=== PATIENT | male | born 1965 ===

== ENCOUNTER 2017-05-23 08:11 | Day surgery (SDC) | payer BC ==
[2017-05-22 11:22] VITALS: BMI 34.7
[2017-05-23] MEDS ORDERED: Lactated Ringer's 1,000 ML IV ONE (11:50)
[2017-05-23] MEDS ORDERED: Propofol 10 mg/ml Inj (20 ML) ONE ×2 (11:50→12:09)
[2017-05-23] MEDS ORDERED: Lidocaine Hydrochloride 5 ML INJ ONE (11:51)
[2017-05-23 12:45] VITALS: TEMP 98.4
[2017-05-23 13:29] VITALS: O2SAT 100
[2017-05-23 14:55] VITALS: BP 126/80; PULSE 51; RESP 22
== END 2017-05-23 14:05 | disposition home or self-care (01) ==
LOC: C.ENDO 08:11
PROVIDERS: ATTEND Internal Medicine Gastroenterology
DX: Z12.11 Encounter for screening for malignant neoplasm of colon (principal); K63.5 Polyp of colon; I10 Essential (primary) hypertension; F11.11 Opioid abuse, in remission; Z92.29 Personal history of other drug therapy
CPT/HCPCS: 45380; 88305; J2704; J7120

== ENCOUNTER 2017-07-24 07:39 | Emergency (ER) | payer BC ==
[2017-07-24 07:39] VITALS: BMI 34.7
[2017-07-24 07:45] VITALS: TEMP 97.7
[2017-07-24] MEDS ORDERED: Sodium Chloride 0.9% 1,000 ML IV ONE (08:04)
[2017-07-24] MEDS ORDERED: Sodium Chloride 0.9% 1,000 ML ONE (08:15)
[2017-07-24 08:16] LABS: BASO % 0.4 % (0.0-2.0); EOS # 0.1 K/uL (0.0-0.7); HEMOGLOBIN 13.3 g/dL (12.0-18.0); LYMPH # 1.9 K/uL (1.0-4.3); LYMPH % 20.6 % (20.0-40.0); MEAN CORPUSCULAR HEMOGLOBIN 30.1 pg (27.0-31.0); MEAN CORPUSCULAR HGB CONC 33.6 g/dL (33.0-37.0); MEAN PLATELET VOLUME 8.1 fL (7.2-11.7); MONO # 0.4 K/uL (0.0-0.8); MONO % 4.6 % (0.0-10.0); NEUT # 6.6 K/uL (1.8-7.0); NEUT % 73.4 % (50.0-75.0); RBC 4.44 Mil/uL (4.40-5.90); RED CELL DISTRIBUTION WIDTH 14.4 % (11.5-14.5)
--- NOTE | 2017-07-24 08:19 | C.PDOC ---
History Of Present Illness 52yo male with history of chronic pain, loop recorder in heart due to irregular hear rate, presents to ED with complaints of right sidied abdominal pain since earlier today. He denies any associated fever, chills, vomiting or diarrhea. Patient also complains of back pain but states that the pain is chronic. He denies any chest pain, weakness, shortness of breath. Patient offers no other medical complaints. PMD: Emile Green Time Seen by Provider: 07/24/17 07:43 Chief Complaint (Nursing): Abdominal Pain History Per: Patient History/Exam Limitations: no limitations Onset/Duration Of Symptoms: Hrs Current Symptoms Are (Timing): Still Present Severity: Mild Location Of Pain/Discomfort: RUQ, RLQ Quality Of Discomfort: "Pain" Associated Symptoms: denies: Fever, Chills, Nausea, Vomiting, Diarrhea, Chest Pain Additional History Per: Patient Past Medical History Reviewed: Historical Data, Nursing Documentation, Vital Signs Vital Signs: Last Vital Signs Temp 97.7 F 07/24/17 07:41 Pulse 38 L 07/24/17 09:51 Resp 17 07/24/17 09:51 BP 110/90 07/24/17 09:51 Pulse Ox 95 07/24/17 09:51 - Medical History PMH: Arthritis, Depression, Hepatitis (C), HTN, Hypercholesterolemia Denies: Fractures, Chronic Kidney Disease Surgical History: Appendectomy, Endoscopy - [facility] Procedures LEFT HEART CARDIAC CATH (05/18/14) LT HEART ANGIOCARDIOGRAM (05/18/14) REVISION OR RELOCATION OF CARDIAC DEVICE POCKET (05/25/14) Family History: States: Unknown Family Hx - Social History Hx Tobacco Use: Yes Hx Alcohol Use: No 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 Constitutional: Negative for: Fever, Chills Cardiovascular: Negative for: Chest Pain Respiratory: Negative for: Shortness of Breath Gastrointestinal: Positive for: Abdominal Pain. Negative for: Nausea, Vomiting , Diarrhea Musculoskeletal: Positive for: Back Pain Neurological: Negative for: Weakness Physical Exam - Physical Exam Appears: Non-toxic, No Acute Distress Skin: Normal Color, Warm, Dry Head: Atraumatic, Normacephalic Eye(s): bilateral: Normal Inspection Oral Mucosa: Moist Neck: Normal ROM, Supple Chest: Symmetrical Cardiovascular: Rhythm Regular Respiratory: Normal Breath Sounds Gastrointestinal/Abdominal: Bowel Sounds, Soft, No Tenderness, No Mass, No Distention, No Guarding, No Rebound Extremity: Normal ROM, No Pedal Edema Neurological/Psych: Oriented x3 ED Course And Treatment - Laboratory Results Result Diagrams: 07/24/17 08:13 07/24/17 08:13 Lab Interpretation: Normal O2 Sat by Pulse Oximetry: 96 (RA) Pulse Ox Interpretation: Normal - CT Scan/US CT Abdomen/Pelvis w/o contrast Other Rad Studies (CT/US): Read By Radiologist, Radiology Report Reviewed CT/US Interpretation: FINDINGS: LOWER THORAX: Right middle lobe and lingular atelectasis/scarring. Heart size normal. LIVER: Few punctate calcified granulomas. No gross lesion or ductal dilatation. GALLBLADDER AND BILE DUCTS: Unremarkable. PANCREAS: Unremarkable. No gross lesion or ductal dilatation. SPLEEN: Unremarkable. ADRENALS: Unremarkable. No mass. KIDNEYS AND URETERS: Unremarkable. No hydronephrosis. No solid mass. VASCULATURE: Unremarkable. No aortic aneurysm. BOWEL: Unremarkable. No obstruction. No gross mural thickening. APPENDIX: Unremarkable. Normal appendix. PERITONEUM: Unremarkable. No free fluid. No free air. LYMPH NODES: Unremarkable. No enlarged lymph nodes. BLADDER: Unremarkable. REPRODUCTIVE: Unremarkable. BONES: No acute fracture. Spinal degenerative changes. OTHER FINDINGS: None. IMPRESSION: No obstructive uropathy or evidence of recently passed genitourinary calculus. No acute abdominal pelvic pathology Progress Note: Treated with IVF NSS, toradol and reglan. On re-evaluation abdomen soft non-tender Reassessment Condition: Improved Medical Decision Making Medical Decision Making: Plan: -- Labs -- CT Abdomen/Pelvis -- Urinalysis -- TOradol 15mg IV -- IV Fluids -- Reglan 10mg IV Progress: 0934 On re-evaluation, patient reports feeling much better. Labs and CT reviewed and both normal. Patient instructed to take medications as prescribed and to follow up with PMD in 2-3 days. Stable for discharge home. 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 - Scribe Statement The provider has reviewed the documentation as recorded by the Scribe (Gia Barnes) Provider Attestation: All medical record entries made by the Scribe were at my direction and personally dictated by me. I have reviewed the chart and agree that the record accurately reflects my personal performance of the history, physical exam, medical decision making, and the department course for this patient. I have also personally directed, reviewed, and agree with the discharge instructions and disposition.
[2017-07-24 08:27] LABS: MEAN CELL VOLUME 89.4 fL (80.0-94.0)
[2017-07-24 08:31] LABS: ALB/GLOB RATIO 1.5 (1.0-2.1); ALBUMIN 4.5 g/dL (3.5-5.0); ALT/SGPT 22 U/L (21-72); AST/SGOT 33 U/L (17-59); BLOOD UREA NITROGEN 11 mg/dL (9-20); CALCIUM 9.4 mg/dl (8.6-10.4); GFR AFRICAN-AMERICAN > 60; GFR NON-AFRICAN AMERICAN > 60; LIPASE 25 U/L (23-300)
[2017-07-24 09:07] LABS: URINE BILIRUBIN NEGATIVE (NEGATIVE); URINE BLOOD NEGATIVE (NEGATIVE); URINE CLARITY Clear (Clear); URINE COLOR YELLOW (YELLOW); URINE GLUCOSE (UA) NEGATIVE (Normal); URINE PROTEIN NEGATIVE (NEGATIVE)
[2017-07-24 09:08] LABS: URINE LEUKOCYTE ESTERASE NEGATIVE Leu/uL (Negative); URINE UROBILINOGEN 0.2 mg/dL (0.2-1.0)
--- NOTE | 2017-07-24 09:12 | CT ---
PROCEDURE: CT Abdomen and Pelvis without intravenous contrast HISTORY: Pain COMPARISON: CT scan of the abdomen and pelvis dated 03/22/2011. TECHNIQUE: Contiguous images were obtained from the domes of the diaphragms to the upper thighs without the administration of intravenous contrast. Oral contrast was not administered. Radiation dose: Total exam DLP = 929.5 mGy-cm. This CT exam was performed using one or more of the following dose reduction techniques: Automated exposure control, adjustment of the mA and/or kV according to patient size, and/or use of iterative reconstruction technique. FINDINGS: LOWER THORAX: Right middle lobe and lingular atelectasis/scarring. Heart size normal. LIVER: Few punctate calcified granulomas. No gross lesion or ductal dilatation. GALLBLADDER AND BILE DUCTS: Unremarkable. PANCREAS: Unremarkable. No gross lesion or ductal dilatation. SPLEEN: Unremarkable. ADRENALS: Unremarkable. No mass. KIDNEYS AND URETERS: Unremarkable. No hydronephrosis. No solid mass. VASCULATURE: Unremarkable. No aortic aneurysm. BOWEL: Unremarkable. No obstruction. No gross mural thickening. APPENDIX: Unremarkable. Normal appendix. PERITONEUM: Unremarkable. No free fluid. No free air. LYMPH NODES: Unremarkable. No enlarged lymph nodes. BLADDER: Unremarkable. REPRODUCTIVE: Unremarkable. BONES: No acute fracture. Spinal degenerative changes. OTHER FINDINGS: None. IMPRESSION: No obstructive uropathy or evidence of recently passed genitourinary calculus. No acute abdominal pelvic pathology
[2017-07-24 09:52] VITALS: BP 110/90; PULSE 38; RESP 17
[2017-07-24 14:41] VITALS: O2SAT 96
== END 2017-07-24 09:56 | disposition home or self-care (01) ==
LOC: C.ER 07:39
DX: R10.11 Right upper quadrant pain (principal); T14.8XXA Other injury of unspecified body region, initial encounter; X58.XXXA Exposure to other specified factors, initial encounter
CPT/HCPCS: 74176; 80053; 81001; 83690; 85025; 96361; 96374; 96375; 99285; J1885; J2765; J7030

== ENCOUNTER 2017-09-18 06:02 | Day surgery (SDC) | payer BC ==
[2017-09-18] MEDS ORDERED: Bupivacaine 0.25% 20 ML INJ IJ ONE (07:18)
[2017-09-18] MEDS ORDERED: Lidocaine/Epinephrine 1% 1:100000 10 ML IJ ONE (07:18)
[2017-09-18] MEDS ORDERED: ceFAZolin IV 2 gm in Dextrose 2 GM/50 ML BAG IVPB ONE (07:18)
[2017-09-18] MEDS ORDERED: Propofol 10 mg/ml Inj (20 ML) ONE (07:34)
[2017-09-18] MEDS ORDERED: Midazolam 2 MG/2 ML VIAL ONE (07:34)
[2017-09-18] MEDS ORDERED: Rocuronium 10 mg/ml (5 ml) ONE (07:35)
[2017-09-18] MEDS ORDERED: Phenylephrine 10 mg/ml Inj ONE (07:37)
[2017-09-18] MEDS ORDERED: KETAMINE HCL 50 MG/ML SYRINGE ONE (08:07)
[2017-09-18] MEDS ORDERED: Neostigmine Methylsulfate 3mg/3ml Syringe IV ONE (09:26)
--- NOTE | 2017-09-18 09:54 | PCM.SURG1 ---
Surgeon's Initial Post Op Note - Surgeon's Notes Surgeon: Puja Clayton MD Industrial Registered Nurse: ALYSA Huerta Type of Anesthesia: General Endo Pre-Operative Diagnosis: Chronic Cholecystitis and Cholelithiasis. Morbid Obesity. Hepatitis C Operative Findings: Chronic Cholecystitis and Cholelithiasis. Post Infectious adhesions. Morbid Obesity. Hepatitis C Post-Operative Diagnosis: Chronic Cholecystitis and Cholelithiasis. Post Infectious Adhesions. Morbid Obesity. Hepatitis C Operation Performed: Robotic Cholecystectomy. Robotic Enterolysis and Lysis of adhesions Specimen/Specimens Removed: Gall Bladder Estimated Blood Loss: EBL {In ML}: 10 Blood Products Given: N/A Drains Used: No Drains Post-Op Condition: Good Date of Surgery/Procedure: 09/18/17 Time of Surgery/Procedure: 09:55
[2017-09-18] MEDS: HYDROmorphone 0.5 mg/0.5 ml ISec IVP PRN ×6 (10:00→10:56)
[2017-09-18] MEDS ORDERED: Lactated Ringer's 1,000 ML IV ONE (10:30)
[2017-09-18 12:11] VITALS: O2SAT 95
[2017-09-18] MEDS ORDERED: Oxycodone/Acetaminophen 5/325 mg Tab PO PRN (12:11)
[2017-09-18 16:26] VITALS: BP 113/71; PULSE 73; RESP 18; TEMP 97.8
--- NOTE | 2017-09-18 21:32 | OP ---
Copied To: Wei Clayton MD Attending MD: Wei Clayton MD PROCEDURE DATE: 09/18/2017 PREOPERATIVE DIAGNOSES: 1. Chronic cholecystitis and cholelithiasis. 2. Morbid obesity. 3. Hepatitis C positive. POSTOPERATIVE DIAGNOSES: 1. Chronic cholecystitis and cholelithiasis. 2. Extensive postinfectious right upper quadrant adhesions. 3. Morbid obesity. 4. Hepatitis C. PROCEDURES: 1. Robotic cholecystectomy. 2. Robotic extensive enterolysis. SURGEON: Wei Clayton MD BUSINESS OBJECTS ARCHITECT: ERIS Huerta TYPE OF ANESTHESIA: General endotracheal tube anesthesia. ESTIMATED BLOOD LOSS: Around 20 mL. DRAINS: None. PATHOLOGY: The gallbladder with the gallstone was sent for the pathology. COMPLICATIONS: None. INTRAOPERATIVE FINDINGS: The patient had changes of chronic cholecystitis and cholelithiasis, and the patient also had hepatomegaly with extensive right upper quadrant adhesion with duodenum firmly adhesed to the gallbladder, and extensive enterolysis was done in order to enter the Calot's triangle. DESCRIPTION OF PROCEDURE: On intraoperative steps, this is a 52-year-old male who was diagnosed with chronic cholecystitis and cholelithiasis, and the patient was consented for the robotic cholecystectomy, possible open, brought to the OR, placed upon the operating table. After induction of the anesthesia, the abdomen was prepped and draped in the usual sterile fashion. A supraumbilical transverse incision was made after incising the skin, subcutaneous tissue, and the fascia. The robotic camera port was placed. Pneumo was created. Three 8-mm ports were placed in upper abdomen. Robot was brought in. Camera arm as well as arm 1 and arm 2 was docked. The patient was found to have omental colonic adhesion to the gallbladder. First, lysis of adhesion was done, and enterolysis was done. The duodenum was firmly adhesed, and the complete enterolysis was done in order to enter the Calot's triangle. The gallbladder was resected cranially and Calot's triangle dissection was done. Cystic duct and cystic artery were identified, and a top-down approach was done. Critical view of safety was also identified, and intraoperative Firefly was used to identify the ductal anatomy, and the cystic duct and CBD junction was identified, and the cystic duct was clipped at three places nearby the common bile duct junction, and cystic duct and cystic artery were divided and gallbladder was dissected free from the gallbladder fossa. The cystic artery was also clipped at three places before division and there was proper hemostasis in each and every part of the procedure. There was some bleeding from the gallbladder fossa due to hepatomegaly and possible cirrhosis, and proper hemostasis was achieved. Suction irrigation of the gallbladder fossa as well as perihepatic area was done, and all the instrument was taken out. Robot was undocked. All the ports were taken out under vision. The gallbladder was sent off the table for pathology. There was proper hemostasis in each and every part of the procedure. The umbilical incision was closed in two layers. The fascia with 0 Vicryl interrupted suture, skin with 4-0 Monocryl, and dry sterile dressing was applied. The patient tolerated the procedure well. Count of the instrument and gauze was correct. The patient was extubated in the OR and sent to the postanesthesia care unit in stable condition. Wei Clayton MD
== END 2017-09-18 16:25 | disposition home or self-care (01) ==
LOC: C.SDS 06:02
PROVIDERS: ATTEND Surgery Surgical Critical Care
DX: K80.10 Calculus of gallbladder with chronic cholecystitis without obstruction (principal); E66.01 Morbid (severe) obesity due to excess calories; B19.20 Unspecified viral hepatitis C without hepatic coma; Z68.29 Body mass index [BMI] 29.0-29.9, adult
CPT/HCPCS: 47562; 88304; J0690; J1170; J2001; J2250; J2370; J2405; J2704; J2710; J3010; J7120

== ENCOUNTER 2017-09-19 07:34 | Inpatient (IN) | payer BC ==
[2017-09-19 07:44] VITALS: BMI 31.0
--- NOTE | 2017-09-19 08:08 | C.PDOC ---
History Of Present Illness 52-year-old male, presents to the emergency department with complaints of shortness of breath and couph with blood tinged sputum, developed yesterday. Patient states he had a cholecystectomy done yesterday by Dr Clayton, and states symptoms have been worsening since discharge last night. Patient notes an associated cough with blood tinged white sputum. He denies any nausea/ vomiting, leg pain/swelling, chest pain, back pain, dizziness, or any other associated symptoms. No other complaints at this time. Chief Complaint (Nursing): GI Problem History Per: Patient History/Exam Limitations: no limitations Onset/Duration Of Symptoms: Days Severity: Moderate Past Medical History Reviewed: Historical Data, Nursing Documentation, Vital Signs Vital Signs: Last Vital Signs Temp 98.1 F 09/19/17 16:00 Pulse 69 09/19/17 17:10 Resp 14 09/19/17 17:10 BP 136/86 09/19/17 17:04 Pulse Ox 95 09/19/17 17:10 - Medical History PMH: Arthritis, Cardia Arrhythmia, Depression, Gall Bladder Disease (GB removed) , Hepatitis (C), HTN, Hypercholesterolemia Denies: Fractures, Chronic Kidney Disease Surgical History: Appendectomy, Cholecystectomy, Endoscopy - [facility] Procedures LEFT HEART CARDIAC CATH (05/18/14) LT HEART ANGIOCARDIOGRAM (05/18/14) REVISION OR RELOCATION OF CARDIAC DEVICE POCKET (05/25/14) Family History: States: No Known Family Hx - Social History Hx Tobacco Use: Yes Hx Alcohol Use: No 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) - Immunization History Hx Tetanus Toxoid Vaccination: No Hx Influenza Vaccination: No Hx Pneumococcal Vaccination: No Review Of Systems Constitutional: Negative for: Fever, Chills Cardiovascular: Negative for: Chest Pain, Palpitations Respiratory: Positive for: Cough, Shortness of Breath, Sputum Gastrointestinal: Negative for: Nausea, Vomiting Musculoskeletal: Negative for: Back Pain Neurological: Negative for: Weakness, Numbness, Headache, Dizziness Physical Exam - Physical Exam Appears: Non-toxic, No Acute Distress, Other (uncomfortable, SOB) Skin: Normal Color, Warm, Dry, No Rash Head: Atraumatic, Normacephalic Eye(s): bilateral: Normal Inspection Nose: Normal Oral Mucosa: Moist Lips: Normal Appearing Neck: Normal ROM Chest: Symmetrical Cardiovascular: Rhythm Regular, No Murmur Respiratory: No Normal Breath Sounds, No Accessory Muscle Use, Rhonchi (B/L, L>R ) Gastrointestinal/Abdominal: Soft, No Tenderness Extremity: Normal ROM, Pedal Edema, No Deformity, No Swelling Neurological/Psych: Oriented x3, Normal Speech ED Course And Treatment - Laboratory Results Result Diagrams: 09/19/17 08:29 09/19/17 08:29 O2 Sat by Pulse Oximetry: 91 Pulse Ox Interpretation: Abnormal (RA) - Other Rad CXR X-Ray: Viewed By Me, Read By Radiologist Interpretation: Accession No. : [id number]. Patient Name / ID : JAVON Fontanez / [id number]. Exam Date : 09/19/2017 08:03:45 ( Approved ). Study Comment : Sex / Age : M / 52Y. Creator : Marva Smith MD. Dictator : Marva Smith MD. It Teacher : Tele Grout Sewer Line Repairer : Marva Smith MD. Approver2 : Report Date : 09/19/2017 08:32:53. My Comment : . Date of service: 09/19/2017. PROCEDURE: CHEST RADIOGRAPH, 1 VIEW. HISTORY: SOB, cough. COMPARISON: 09/12/2017. FINDINGS: LUNGS: The lungs are well inflated. There is interval development of consolidation in the left upper and lower lobes. PLEURA: No pneumothorax or pleural fluid seen. CARDIOVASCULAR: Normal. OSSEOUS STRUCTURES: No significant abnormalities. VISUALIZED UPPER ABDOMEN: Normal. OTHER FINDINGS: None. IMPRESSION: Multifocal left upper and lower lobe pneumonia. Follow-up after medical management is recommended to ensure complete resolution. - CT Scan/US CT chest Other Rad Studies (CT/US): Read By Radiologist, Radiology Report Reviewed CT/US Interpretation: Accession No. : [id number]. Patient Name / ID : JAVON Fontanez / [id number]. Exam Date : 09/19/2017 09:57:28 ( Approved ). Study Comment : Sex / Age : M / 52Y. Creator : Amarilis Rivers. Dictator : Shauna Hawkins V. It Teacher : Tele Grout Sewer Line Repairer : Shauna John V. Approver2 : Report Date : 09/19/2017 10:08:49. My Comment : . Date of service: 09/19/2017. PROCEDURE: CT Chest with contrast (Pulmonary Angiogram). HISTORY: s/p cholecystectomy yesterday, sob, hypoxia. COMPARISON: None available. TECHNIQUE: Axial computed tomography images were obtained of the chest in the pulmonary arterial phase of enhancement. Coronal and sagittal reformatted images were created and reviewed. Intravenous contrast dose: 100 mL of Visipaque 320. Radiation dose: Total exam DLP = 611 mGy-cm. This CT exam was performed using one or more of the following dose reduction techniques: Automated exposure control, adjustment of the mA and/or kV according to patient size, and/or use of iterative reconstruction technique. FINDINGS: PULMONARY ARTERIES: Unremarkable. No pulmonary embolism. AORTA: There is an at ascending aortic aneurysm at 4.2 x 4.3 cm at main pulmonary artery trunk level. No dissection seen. No aneurysm the descending thoracic aorta at 2.7 cm is present. LUNGS: Extensive a tendon coalescing airspace opacities in the posterior segments of the left upper lobe and the posterior left lower lobe are present. A recent 09/12/2017 preop chest x- ray referenced clear lungs. Given the interval short timeframe -an aspiration pneumonitis is 1 consideration. There are few were and less dense airspace opacities in the dependent right lower lobe as well. These right sided findings are much less extensive than those on the left. A 9 mm rounded solid- appearing nodule appears pleural/visual based on axial series 4, image 56 - its significance is indeterminate it is difficult to appreciate on prior chest x- rays. Central airways patent and unremarkable appearing. PLEURAL SPACES: No effusion or pneumothorax. HEART: Minimal cardiomegaly. No significant pericardial effusion. LYMPH NODES: No lymphadenopathy. BONES, CHEST WALL: Unremarkable. No fracture or destructive lesion. OTHER FINDINGS: Mild gaseous distension (incomplete) with some mixed fluid solid material in the esophagus noted-reflux can result in this. No long segmental dilatation suggested. IMPRESSION: . No pulmonary embolus. Bilateral coalescing airspace opacities - much more extensive in the left lung as detailed above. An aspiration pneumonitis is a consideration. Incidentally detected is an approximately 9 mm right fissural based solid-appearing nodule -not evident on chest x-ray. Per Fleischner guideline recommendations, for low and high risk patients, consider initial follow-up CT chest at 3 months to reassess - and then at 9-12 and 24 months if no change. At ascending aortic aneurysm measuring up to 4.3 cm. No dissection. Cardiology consultation follow-up recommended. Minimal cardiomegaly. Medical Decision Making Medical Decision Making: Plan: * EKG * Bloodwork, D-Dimer * Chest X-Ray * O2 via NC * Lasix * UA * Reassess and Disposition D-dimer elevated, Trop ordered Pt Troponin is elevated, pt will be sent for CTA Case discussed with Dr Green, as per request, copies of EKG were texted to him. I discussed with Dr Green that pts Troponin is significantly elevated. Dr Green requests Dr Colunga evaluation and consult Dr Nova. ICU accepts pt. Dr Bruce requesting stat cardiac echo. Pt started on Aspirin and heparin bolus and drip. EKG I Rate 85bpm Rhythm NSR Interpet Prolonged QT, pulmonary disease pattern. EKGII 10:09 Rate 71bpm Rhythm NSR Interpret T wave abnormalities in lateral leads. Disposition - Disposition Disposition: HOSPITALIZED Disposition Time: 10:59 Condition: SERIOUS - Clinical Impression Clinical Impression: Hypoxia, STEMI (ST elevation myocardial infarction), Pneumonia - Scribe Statement The provider has reviewed the documentation as recorded by the Scribe (Tacho Cedeno) All medical record entries made by the Scribe were at my direction and personally dictated by me. I have reviewed the chart and agree that the record accurately reflects my personal performance of the history, physical exam, medical decision making, and the department course for this patient. I have also personally directed, reviewed, and agree with the discharge instructions and disposition. Decision To Admit - Pt Status Changed To: Hospital Disposition Of: Inpatient - Admit Certification Admit to Inpatient:: After my assessment, the patient will require hospitalization for at least two midnights. This is because of the severity of symptoms shown, intensity of services needed, and/or the medical risk in this patient being treated as an outpatient. - InPatient: Physician Admission Certification: I certify that this patient requires 2 or more midnights of care for the following reason:: patient is being admitted to ICU and will need more than 2 days of hospitalization - . Bed Request Type: ICU Admitting Physician: Emile Green Patient Diagnosis: Hypoxia, STEMI (ST elevation myocardial infarction), Pneumonia
--- NOTE | 2017-09-19 08:34 | RAD ---
Date of service: 09/19/2017 PROCEDURE: CHEST RADIOGRAPH, 1 VIEW HISTORY: SOB, cough COMPARISON: 09/12/2017. FINDINGS: LUNGS: The lungs are well inflated. There is interval development of consolidation in the left upper and lower lobes. PLEURA: No pneumothorax or pleural fluid seen. CARDIOVASCULAR: Normal. OSSEOUS STRUCTURES: No significant abnormalities. VISUALIZED UPPER ABDOMEN: Normal. OTHER FINDINGS: None. IMPRESSION: Multifocal left upper and lower lobe pneumonia. Follow-up after medical management is recommended to ensure complete resolution.
[2017-09-19 08:38] LABS: BASO # 0.1 K/uL (0.0-0.2); BASO % 0.3 % (0.0-2.0); HEMOGLOBIN 14.8 g/dL (12.0-18.0); LYMPH # 1.8 K/uL (1.0-4.3); MEAN CELL VOLUME 89.7 fL (80.0-94.0); MEAN CORPUSCULAR HEMOGLOBIN 30.2 pg (27.0-31.0); MEAN CORPUSCULAR HGB CONC 33.7 g/dL (33.0-37.0); MONO # 0.9 K/uL (0.0-0.8); MONO % 4.1 % (0.0-10.0); NEUT # 19.3 K/uL (1.8-7.0); NEUT % 87.6 % (50.0-75.0); PLATELET COUNT 304 K/uL (130-400); RBC 4.89 Mil/uL (4.40-5.90); RED CELL DISTRIBUTION WIDTH 14.4 % (11.5-14.5); WHITE BLOOD COUNT 22.1 K/uL (4.8-10.8)
[2017-09-19] MEDS ORDERED: Vancomycin 1 GM 1 GM/250 ML BAG IV SCH (08:45)
[2017-09-19] MEDS ORDERED: Piperacillin/Tazobact 3.375 gm 100 ML IV STA (08:49)
[2017-09-19 08:54] LABS: INR 1.2; PROTHROMBIN TIME 12.9 SECONDS (9.7-12.2)
[2017-09-19 08:59] LABS: ALB/GLOB RATIO 1.6 (1.0-2.1); ALBUMIN 4.4 g/dL (3.5-5.0); ALT/SGPT 36 U/L (21-72); AST/SGOT 66 U/L (17-59); BLOOD UREA NITROGEN 10 mg/dL (9-20); CALCIUM 9.4 mg/dl (8.6-10.4); GFR AFRICAN-AMERICAN > 60; GFR NON-AFRICAN AMERICAN > 60
[2017-09-19 09:04] LABS: ARTERIAL BLOOD GAS HCO3 23.4 mmol/L (21-28); ARTERIAL BLOOD GAS O2 SAT 88.4 % (95-98); ARTERIAL BLOOD GAS PCO2 36 mm/Hg (35-45); ARTERIAL BLOOD GAS PH 7.41 (7.35-7.45); ARTERIAL BLOOD GAS PO2 46 mm/Hg (80-100); ARTERIAL BLOOD GAS TCO2 23.9 mmol/L (22-28)
[2017-09-19 09:08] LABS: B-TYPE NATRIURETIC PEPTIDE 7720 pg/mL (0-900); CK-MB 23.5 ng/mL (0.0-3.38)
[2017-09-19 09:12] LABS: BARBITURATES, UR NEGATIVE (NEGATIVE); PHENCYCLIDINE, UR NEGATIVE (NEGATIVE)
[2017-09-19 09:14] LABS: URINE BACTERIA RARE (<OCC); URINE BILIRUBIN NEGATIVE (NEGATIVE); URINE BLOOD NEGATIVE (NEGATIVE); URINE CLARITY Clear (Clear); URINE COLOR Yellow (YELLOW); URINE GLUCOSE (UA) NORMAL (Normal); URINE LEUKOCYTE ESTERASE NEG Leu/uL (Negative); URINE PROTEIN NEGATIVE (NEGATIVE); URINE UROBILINOGEN NORMAL mg/dL (0.2-1.0)
[2017-09-19] MEDS ORDERED: Piperacillin/Tazobact 3.375 gm 100 ML IVPB ONE (09:21)
[2017-09-19] MEDS ORDERED: Iodixanol 320 MG/ML 100 ML BOTTLE IV ONE (09:28)
[2017-09-19 09:31] LABS: EOSINOPHIL 1 % (0-4); LYMPHOCYTE 7 % (20-40); MONOCYTE 9 % (0-10); NEUTROPHIL 83 % (50-75); PLATELET ESTIMATE NORMAL (NORMAL); TOTAL CELLS COUNTED 100
[2017-09-19 09:33] LABS: BENZODIAZEPINES, UR POSITIVE (NEGATIVE); OPIATES, UR POSITIVE (NEGATIVE)
[2017-09-19] MEDS ORDERED: Vancomycin 1 gm/NS 200 ml 1 GM/200 ML BAG IVPB SCH (09:45)
[2017-09-19] MEDS ORDERED: Aspirin 325 mg EC Tablets PO STA (10:25)
[2017-09-19] MEDS ORDERED: Vancomycin 1 gm/NS 200 ml 1 GM/200 ML BAG IVPB ONE (10:30)
--- NOTE | 2017-09-19 10:36 | CT ---
Date of service: 09/19/2017 PROCEDURE: CT Chest with contrast (Pulmonary Angiogram) HISTORY: s/p cholecystectomy yesterday, sob, hypoxia COMPARISON: None available. TECHNIQUE: Axial computed tomography images were obtained of the chest in the pulmonary arterial phase of enhancement. Coronal and sagittal reformatted images were created and reviewed. Intravenous contrast dose: 100 mL of Visipaque 320 Radiation dose: Total exam DLP = 611 mGy-cm. This CT exam was performed using one or more of the following dose reduction techniques: Automated exposure control, adjustment of the mA and/or kV according to patient size, and/or use of iterative reconstruction technique. FINDINGS: PULMONARY ARTERIES: Unremarkable. No pulmonary embolism. AORTA: There is an at ascending aortic aneurysm at 4.2 x 4.3 cm at main pulmonary artery trunk level. No dissection seen. No aneurysm the descending thoracic aorta at 2.7 cm is present. LUNGS: Extensive a tendon coalescing airspace opacities in the posterior segments of the left upper lobe and the posterior left lower lobe are present. A recent 09/12/2017 preop chest x-ray referenced clear lungs. Given the interval short timeframe -an aspiration pneumonitis is 1 consideration. There are few were and less dense airspace opacities in the dependent right lower lobe as well. These right sided findings are much less extensive than those on the left. A 9 mm rounded solid-appearing nodule appears pleural/visual based on axial series 4, image 56 - its significance is indeterminate it is difficult to appreciate on prior chest x-rays. Central airways patent and unremarkable appearing PLEURAL SPACES: No effusion or pneumothorax. HEART: Minimal cardiomegaly. No significant pericardial effusion. LYMPH NODES: No lymphadenopathy. BONES, CHEST WALL: Unremarkable. No fracture or destructive lesion OTHER FINDINGS: Mild gaseous distension (incomplete) with some mixed fluid solid material in the esophagus noted-reflux can result in this. No long segmental dilatation suggested IMPRESSION: . No pulmonary embolus. Bilateral coalescing airspace opacities -much more extensive in the left lung as detailed above. An aspiration pneumonitis is a consideration. Incidentally detected is an approximately 9 mm right fissural based solid-appearing nodule -not evident on chest x-ray. Per Fleischner guideline recommendations, for low and high risk patients, consider initial follow-up CT chest at 3 months to reassess - and then at 9-12 and 24 months if no change At ascending aortic aneurysm measuring up to 4.3 cm. No dissection. Cardiology consultation follow-up recommended. Minimal cardiomegaly
[2017-09-19] MEDS ORDERED: Heparin25000 units/250ml 1/2NS 25,000 UNITS/250 ML BAG IV ONE (10:45)
[2017-09-19] MEDS ORDERED: Aspirin 325 mg EC Tablets PO ONE (11:09)
[2017-09-19] MEDS ORDERED: Perflutren Lipid Microsphere 1.5 ML SUS IV ONE (11:52)
--- NOTE | 2017-09-19 13:28 | CP.PCM.CON ---
<Petros Bruce - Last Filed: 09/19/17 17:43> Meds Allergies/Adverse Reactions: Allergies Allergy/AdvReac Type Severity Reaction Status Date / Time No Known Allergies Allergy Verified 09/19/17 07:44 - Medications Medications: Current Medications Albuterol/Ipratropium (Duoneb 3 Mg/0.5 Mg (3 Ml) Ud) 3 ml INH RQ6 NATHANAEL Heparin Sodium/Sodium Chloride (Heparin 68932 Units/250ml 1/2 Normal Saline) 25 ,000 units in 250 mls @ 10 mls/hr IV .Q24H ONE PRN Reason: Protocol Stop: 09/20/17 10:44 Last Admin: 09/19/17 12:30 Dose: 10 mls/hr Lactated Ringer's (Lactated Ringer's) 1,000 mls @ 75 mls/hr IV .[id number] NATHANAEL Last Admin: 09/19/17 16:10 Dose: 75 mls/hr Ceftriaxone Sodium 2 gm/ (Sodium Chloride) 100 mls @ 100 mls/hr IVPB Q24H NATHANAEL PRN Reason: Protocol Last Admin: 09/19/17 16:39 Dose: 100 mls/hr Piperacillin Sod/Tazobactam Sod (Zosyn 3.375 Gm Iv Premix) 3.375 gm in 50 mls @ 100 mls/hr IVPB Q6H NATHANAEL PRN Reason: Protocol Vancomycin/Sodium Chloride (Vancomycin 1 Gm/Ns 200 Ml) 1 gm in 200 mls @ 166.6 mls/hr IVPB Q12H NATHANAEL PRN Reason: Protocol Stop: 09/24/17 22:01 Pneumococcal Polyvalent Vaccine (Pneumovax 23 Vaccine) 0.5 ml SC .ONCE ONE Stop: 09/21/17 10:01 Results - Vital Signs Recent Vital Signs: Last Vital Signs Temp 98.1 F 09/19/17 16:00 Pulse 69 09/19/17 17:10 Resp 14 09/19/17 17:10 BP 136/86 09/19/17 17:04 Pulse Ox 95 09/19/17 17:10 - Labs Result Diagrams: 09/19/17 08:29 09/19/17 08:29 Labs: Laboratory Results - last 24 hr 09/19/17 09/19/17 09/19/17 08:29 08:29 08:29 WBC 22.1 H D RBC 4.89 Hgb 14.8 Hct 43.8 MCV 89.7 MCH 30.2 MCHC 33.7 RDW 14.4 Plt Count 304 MPV 9.0 Neut % (Auto) 87.6 H Lymph % (Auto) 8.0 L Lipscomb % (Auto) 4.1 Eos % (Auto) 0.0 Baso % (Auto) 0.3 Neut # (Auto) 19.3 H Lymph # (Auto) 1.8 Lipscomb # (Auto) 0.9 H Eos # (Auto) 0.0 Baso # (Auto) 0.1 Neutrophils % (Manual) 83 H Lymphocytes % (Manual) 7 L Monocytes % (Manual) 9 Eosinophils % (Manual) 1 Platelet Estimate Normal PT 12.9 H INR 1.2 APTT 30 D-Dimer, Quantitative 316 H Puncture Site pCO2 pO2 HCO3 ABG pH ABG Total CO2 ABG O2 Saturation ABG Base Excess Alejandro Test ABG Potassium A-a O2 Difference Respiratory Index Glucose Lactate FiO2 Sodium Potassium Chloride Carbon Dioxide Anion Gap BUN Creatinine Est GFR ( Amer) Est GFR (Non-Af Amer) Random Glucose Calcium Total Bilirubin AST ALT Alkaline Phosphatase Total Creatine Kinase CK-MB (Mass) Troponin I NT-Pro-B Natriuret Pep Total Protein Albumin Globulin Albumin/Globulin Ratio Arterial Blood Potassium Urine Color Yellow Urine Clarity Clear Urine pH 5.0 Ur Specific Burton 1.025 Urine Protein Negative Urine Glucose (UA) Normal Urine Ketones 1+ H Urine Blood Negative Urine Nitrate Negative Urine Bilirubin Negative Urine Urobilinogen Normal Ur Leukocyte Esterase Neg Urine WBC (Auto) 4 Urine RBC (Auto) 8 H Urine Bacteria Rare Urine Opiates Screen Urine Methadone Screen Ur Barbiturates Screen Ur Phencyclidine Scrn Ur Amphetamines Screen U Benzodiazepines Scrn U Oth Cocaine Metabols U Cannabinoids Screen 18 0818 18 08:29 08:29 08:58 WBC RBC Hgb Hct MCV MCH MCHC RDW Plt Count MPV Neut % (Auto) Lymph % (Auto) Lipscomb % (Auto) Eos % (Auto) Baso % (Auto) Neut # (Auto) Lymph # (Auto) Lipscomb # (Auto) Eos # (Auto) Baso # (Auto) Neutrophils % (Manual) Lymphocytes % (Manual) Monocytes % (Manual) Eosinophils % (Manual) Platelet Estimate PT INR APTT D-Dimer, Quantitative Puncture Site L/b pCO2 36 pO2 46 L HCO3 23.4 ABG pH 7.41 ABG Total CO2 23.9 ABG O2 Saturation 88.4 L ABG Base Excess -1.4 Alejandro Test Na ABG Potassium 3.2 L A-a O2 Difference 59.0 Respiratory Index 1.3 Glucose 138 H Lactate 1.4 FiO2 21.0 Sodium 142 141.0 Potassium 4.2 Chloride 105 107.0 Carbon Dioxide 24 Anion Gap 17 BUN 10 Creatinine 0.6 L Est GFR ( Amer) > 60 Est GFR (Non-Af Amer) > 60 Random Glucose 144 H Calcium 9.4 Total Bilirubin 0.8 AST 66 H D ALT 36 Alkaline Phosphatase 92 Total Creatine Kinase 359 H CK-MB (Mass) 23.5 H Troponin I 4.8600 H* NT-Pro-B Natriuret Pep 7720 H Total Protein 7.1 Albumin 4.4 Globulin 2.7 Albumin/Globulin Ratio 1.6 Arterial Blood Potassium 3.2 L Urine Color Urine Clarity Urine pH Ur Specific Burton Urine Protein Urine Glucose (UA) Urine Ketones Urine Blood Urine Nitrate Urine Bilirubin Urine Urobilinogen Ur Leukocyte Esterase Urine WBC (Auto) Urine RBC (Auto) Urine Bacteria Urine Opiates Screen Positive H Urine Methadone Screen Positive H Ur Barbiturates Screen Negative Ur Phencyclidine Scrn Negative Ur Amphetamines Screen Negative U Benzodiazepines Scrn Positive U Oth Cocaine Metabols Negative U Cannabinoids Screen Positive H 09/19/17 15:14 WBC RBC Hgb Hct MCV MCH MCHC RDW Plt Count MPV Neut % (Auto) Lymph % (Auto) Lipscomb % (Auto) Eos % (Auto) Baso % (Auto) Neut # (Auto) Lymph # (Auto) Lipscomb # (Auto) Eos # (Auto) Baso # (Auto) Neutrophils % (Manual) Lymphocytes % (Manual) Monocytes % (Manual) Eosinophils % (Manual) Platelet Estimate PT INR APTT D-Dimer, Quantitative Puncture Site pCO2 pO2 HCO3 ABG pH ABG Total CO2 ABG O2 Saturation ABG Base Excess Alejandro Test ABG Potassium A-a O2 Difference Respiratory Index Glucose Lactate FiO2 Sodium Potassium Chloride Carbon Dioxide Anion Gap BUN Creatinine Est GFR ( Amer) Est GFR (Non-Af Amer) Random Glucose Calcium Total Bilirubin AST ALT Alkaline Phosphatase Total Creatine Kinase 266 H CK-MB (Mass) 18.4 H Troponin I 3.6500 H* NT-Pro-B Natriuret Pep Total Protein Albumin Globulin Albumin/Globulin Ratio Arterial Blood Potassium Urine Color Urine Clarity Urine pH Ur Specific Burton Urine Protein Urine Glucose (UA) Urine Ketones Urine Blood Urine Nitrate Urine Bilirubin Urine Urobilinogen Ur Leukocyte Esterase Urine WBC (Auto) Urine RBC (Auto) Urine Bacteria Urine Opiates Screen Urine Methadone Screen Ur Barbiturates Screen Ur Phencyclidine Scrn Ur Amphetamines Screen U Benzodiazepines Scrn U Oth Cocaine Metabols U Cannabinoids Screen Attending/Attestation - Attestation I have personally seen and examined this patient.: Yes I have fully participated in the care of the patient.: Yes I have reviewed all pertinent clinical information: Yes Notes (Text): 09/19/17 17:29 I have seen and examined the patient. Medical records, lab studies, and imaging were reviewed by me and a management plan was formulated on multidisciplinary rounds with resident Dr. Resendiz. I agree with their documented assessment and plan. Patient p/w elevated troponins, and LLL pneumonia, s/p recent cholecystectomy. Starting abx, duonebs, mucolytics. Most likely type 2 stress induced VT, troponins downtrending. Critical Care Time 35 minutes. Multi-disciplinary rounds were performed with house staff, nursing, speech therapy, respiratory therapy, pharmacy and nutrition with integrated input from the primary team/attending and other consulting services. The documented time is cumulative and includes review of patient data/exams/labs/chart review and examination of the patient on rounds and throughout the day; time is exclusive of any procedures or teaching time. <Willow Resendiz - Last Filed: 09/19/17 23:09> History of Present Illness - History of Present Illness History of Present Illness: Critical care consult note: Patient is a 52 year old male with PMHx of HTN, hyperlipidemia, arrhythmia, Hepatitis C (treated in 2016), opioid use disorder (on Methadone for 2 years) s/ p cholecystectomy 09/18/17 who presents to ED for cough with blood tinged sputum and shortness of breath that began yesterday and gradually worsened. Patient also complains of subjective fever, shaking chills, foul smelling urine, nausea and vomiting. Patient denies chest pain, arm pain, palpitations, dysuria, dizziness, lightheadedness. Patient was found to have pneumonia on CXR and elevated troponin- patient was started on antibiotics and heparin drip and admitted to ICU for monitoring. Of note, patient had a diagnostic cardiac catheterization in 2014 following a syncopal episode and abnormal lexiscan. Patient states he was told afterward that he had a slow heart rate. Echo 01/26/13: LV systolic function is normal. EF is 65-70%. No aortic, mitral valve, or tricuspid valve regurgitation. Trace pulmonic valve regurgitation. Cardiac Cath 05/18/14: Angiographically normal coronary arteries. Normal LV systolic function. Mild focal cardiomyopathy involving the posterior basal wall. PMD: Dr. Geren PMHx: HTN, hyperlipidemia, arrhythmia, opioid use disorder on methadone, Hepatitis C-treated, arthritis PSHx: Cholecystectomy (09/18/17), Appendectomy (35 years ago), Cardiac catheterization (04/2014), endoscopy (02/2016), colonoscopy (05/2017), wisdom teeth removal (06/2017) Medications: Methadone 110mg- [facility] Allergies: NKDA Social: Former cigarette smoker, 1ppd for 2 years, quit 3 years ago. Smokes cannabis daily. 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 Family Hx: mother: , had open heart surgery x2. Father: unknown hx. Code status: full code Proxy: , [place] Mo. [phone]. Review of Systems - Constitutional Constitutional: Anorexia, Chills, Fever. absent: Headache, Lethargy, Malaise - Cardiovascular Cardiovascular: Diaphoresis, Dyspnea on Exertion, Orthopnea, Slow Heart Rate. absent: Chest Pain, Chest Pain with Activity, Leg Edema, Lightheadedness - Respiratory Respiratory: Cough, Dyspnea, Hemoptysis. absent: Wheezing, Pain with Coughing - Gastrointestinal Gastrointestinal: Abdominal Pain (recent cholecystectomy), Vomiting. absent: Coffee Ground Emesis, Diarrhea, Hematochezia - Genitourinary Genitourinary: Difficulty Urinating (chronic) Additional comments: foul smelling urine - Neurological Neurological: absent: Abnormal Gait, Burning Sensations, Confusion, Convulsions , Dizziness, Focal Weakness, Frequent Falls, Headaches, Loss of Vision, Paresthesias Past Patient History - Past Medical History & Family History Past Medical History?: Yes - Past Social History Smoking Status: Former Smoker - CARDIAC Hx Cardia Arrhythmia: Yes Hx Hypercholesterolemia: Yes Hx Hypertension: Yes - HEENT Hx HEENT Problems: No - RENAL Hx Chronic Kidney Disease: No - HEMATOLOGICAL/ONCOLOGICAL Hx Blood Disorders: Yes Hx Hepatitis C: Yes (HARVON[place] AND NEGATIVE NOW) - INTEGUMENTARY Hx Dermatological Problems: Yes Hx Psoriasis: Yes (ON STEROID TREATMENT PRN) - MUSCULOSKELETAL/RHEUMATOLOGICAL Hx Arthritis: Yes Hx Falls: No Hx Fractures: No - GASTROINTESTINAL Hx Gall Bladder Disease: Yes (GB removed) - GENITOURINARY/GYNECOLOGICAL Hx Genitourinary Disorders: Yes Hx Prostate Problems: Yes (BPH) Other/Comment: ERECTILE DYSFUNCTION - PSYCHIATRIC Hx Depression: Yes 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) - SURGICAL HISTORY Hx Appendectomy: Yes Hx Cholecystectomy: Yes - ANESTHESIA Hx Anesthesia: Yes Hx Anesthesia Reactions: No Hx Malignant Hyperthermia: No Meds - Medications Medications: Current Medications Heparin Sodium/Sodium Chloride (Heparin 69108 Units/250ml 1/2 Normal Saline) 25 ,000 units in 250 mls @ 10 mls/hr IV .Q24H ONE PRN Reason: Protocol Stop: 09/20/17 10:44 Last Admin: 09/19/17 12:30 Dose: 10 mls/hr Pneumococcal Polyvalent Vaccine (Pneumovax 23 Vaccine) 0.5 ml SC .ONCE ONE Stop: 09/21/17 10:01 Physical Exam - Constitutional Appears: No Acute Distress - Head Exam Head Exam: ATRAUMATIC, NORMOCEPHALIC - Eye Exam Eye Exam: EOMI, Normal appearance, PERRL - ENT Exam ENT Exam: Mucous Membranes Moist - Neck Exam Neck exam: Positive for: Full Rom, Normal Inspection - Respiratory Exam Respiratory Exam: Decreased Breath Sounds, Rhonchi (bilaterally). absent: Accessory Muscle Use - Cardiovascular Exam Cardiovascular Exam: REGULAR RHYTHM, +S1, +S2 - GI/Abdominal Exam GI & Abdominal Exam: Normal Bowel Sounds, Soft, Tenderness (mild over RUQ) Additional comments: bandages over laparoscopic incisions clean, dry and intact. - Extremities Exam Extremities exam: Positive for: full ROM, normal inspection. Negative for: calf tenderness, pedal edema, tenderness - Neurological Exam Neurological exam: Alert, CN II-XII Intact, Oriented x3 - Psychiatric Exam Psychiatric exam: Normal Affect, Normal Mood - Skin Skin Exam: Dry, Normal Color, Warm Results - Vital Signs Recent Vital Signs: Last Vital Signs Temp 98 F 09/19/17 11:10 Pulse 64 09/19/17 13:07 Resp 18 09/19/17 11:40 BP 124/93 H 09/19/17 11:40 Pulse Ox 91 L 09/19/17 12:54 - Labs Result Diagrams: 09/19/17 08:29 09/19/17 08:29 Labs: Laboratory Results - last 24 hr 09/19/17 09/19/17 09/19/17 08:29 08:29 08:29 WBC 22.1 H D RBC 4.89 Hgb 14.8 Hct 43.8 MCV 89.7 MCH 30.2 MCHC 33.7 RDW 14.4 Plt Count 304 MPV 9.0 Neut % (Auto) 87.6 H Lymph % (Auto) 8.0 L Lipscomb % (Auto) 4.1 Eos % (Auto) 0.0 Baso % (Auto) 0.3 Neut # (Auto) 19.3 H Lymph # (Auto) 1.8 Lipscomb # (Auto) 0.9 H Eos # (Auto) 0.0 Baso # (Auto) 0.1 Neutrophils % (Manual) 83 H Lymphocytes % (Manual) 7 L Monocytes % (Manual) 9 Eosinophils % (Manual) 1 Platelet Estimate Normal PT 12.9 H INR 1.2 APTT 30 D-Dimer, Quantitative 316 H Puncture Site pCO2 pO2 HCO3 ABG pH ABG Total CO2 ABG O2 Saturation ABG Base Excess Alejandro Test ABG Potassium A-a O2 Difference Respiratory Index Glucose Lactate FiO2 Sodium Potassium Chloride Carbon Dioxide Anion Gap BUN Creatinine Est GFR ( Amer) Est GFR (Non-Af Amer) Random Glucose Calcium Total Bilirubin AST ALT Alkaline Phosphatase Total Creatine Kinase CK-MB (Mass) Troponin I NT-Pro-B Natriuret Pep Total Protein Albumin Globulin Albumin/Globulin Ratio Arterial Blood Potassium Urine Color Yellow Urine Clarity Clear Urine pH 5.0 Ur Specific Burton 1.025 Urine Protein Negative Urine Glucose (UA) Normal Urine Ketones 1+ H Urine Blood Negative Urine Nitrate Negative Urine Bilirubin Negative Urine Urobilinogen Normal Ur Leukocyte Esterase Neg Urine WBC (Auto) 4 Urine RBC (Auto) 8 H Urine Bacteria Rare Urine Opiates Screen Urine Methadone Screen Ur Barbiturates Screen Ur Phencyclidine Scrn Ur Amphetamines Screen U Benzodiazepines Scrn U Oth Cocaine Metabols U Cannabinoids Screen 09/19/17 09/19/17 09/19/17 08:29 08:29 08:58 WBC RBC Hgb Hct MCV MCH MCHC RDW Plt Count MPV Neut % (Auto) Lymph % (Auto) Lipscomb % (Auto) Eos % (Auto) Baso % (Auto) Neut # (Auto) Lymph # (Auto) Lipscomb # (Auto) Eos # (Auto) Baso # (Auto) Neutrophils % (Manual) Lymphocytes % (Manual) Monocytes % (Manual) Eosinophils % (Manual) Platelet Estimate PT INR APTT D-Dimer, Quantitative Puncture Site L/b pCO2 36 pO2 46 L HCO3 23.4 ABG pH 7.41 ABG Total CO2 23.9 ABG O2 Saturation 88.4 L ABG Base Excess -1.4 Alejandro Test Na ABG Potassium 3.2 L A-a O2 Difference 59.0 Respiratory Index 1.3 Glucose 138 H Lactate 1.4 FiO2 21.0 Sodium 142 141.0 Potassium 4.2 Chloride 105 107.0 Carbon Dioxide 24 Anion Gap 17 BUN 10 Creatinine 0.6 L Est GFR ( Amer) > 60 Est GFR (Non-Af Amer) > 60 Random Glucose 144 H Calcium 9.4 Total Bilirubin 0.8 AST 66 H D ALT 36 Alkaline Phosphatase 92 Total Creatine Kinase 359 H CK-MB (Mass) 23.5 H Troponin I 4.8600 H* NT-Pro-B Natriuret Pep 7720 H Total Protein 7.1 Albumin 4.4 Globulin 2.7 Albumin/Globulin Ratio 1.6 Arterial Blood Potassium 3.2 L Urine Color Urine Clarity Urine pH Ur Specific Burton Urine Protein Urine Glucose (UA) Urine Ketones Urine Blood Urine Nitrate Urine Bilirubin Urine Urobilinogen Ur Leukocyte Esterase Urine WBC (Auto) Urine RBC (Auto) Urine Bacteria Urine Opiates Screen Positive H Urine Methadone Screen Positive H Ur Barbiturates Screen Negative Ur Phencyclidine Scrn Negative Ur Amphetamines Screen Negative U Benzodiazepines Scrn Positive U Oth Cocaine Metabols Negative U Cannabinoids Screen Positive H Assessment & Plan - Assessment and Plan (Free Text) Plan: 52 year old male with PMHx of HTN, arrhythmia, Hepatitis C (treated in 2016), opioid use disorder (on Methadone for 2 years) s/p cholecystectomy 09/18/17 who presents to ED for cough with blood tinged sputum and shortness of breath that began yesterday. Patient was found to have pneumonia on CXR and elevated troponin- patient was started on antibiotics and heparin drip and admitted to ICU for monitoring. Neuro: Pt AAOx3 at baseline monitor for changes Methadone 110mg PO Cardio: Hx of HTN, arrhythmia Troponin: 4.86-> 3.85 EKG: NSR @ 71, L anterior fascicular block, T wave abnormality, prolonged QTc at 482 Echo f/u Echo 01/26/13: LV systolic function is normal. EF is 65-70%. No aortic, mitral valve, or tricuspid valve regurgitation. Trace pulmonic valve regurgitation. Cardiac Cath 05/18/14: Angiographically normal coronary arteries. Normal LV systolic function. Mild focal cardiomyopathy involving the posterior basal wall. Heparin Drip Statin Given ASA, Lasix, heparin in ED LAWSON score for NSTEMI: 2pts -> 8% risk at 14 days of new or recurrent VT or severe recurrent ischemia requiring revascularization. Pulm: CXR: Multifocal SOL and LLL pneumonia CTA Chest: No pulmonary embolus.Bilateral coalescing airspace opacities -much more extensive in the left lung as detailed above. An aspiration pneumonitis is a consideration. Incidentally detected is an approximately 9 mm right fissural based solid-appearing nodule -not evident on chest x-ray. Per Fleischner guideline recommendations, for low and high risk patients, consider initial follow-up CT chest at 3 months to reassess - and then at 9-12 and 24 months if no change. At ascending aortic aneurysm measuring up to 4.3 cm. No dissection. Cardiology consultation follow-up recommended. Minimal cardiomegaly. (see full report) Maintain SpO2 >95 Pt on vanco, zosyn GI: Hx of Hepatitis C-treated in 2016 AST: 66, ALT: 36 monitor Zofran PRN nausea Renal: BUN/Cr: stable : UA: 1+ ketones, 4 WBC, 8 RBC, rare bacteria Endo: A1c f/u Heme: H/H stable monitor ID WBC: 22 CXR: Multifocal SOL and LLL pneumonia Pt on Zosyn and vanco PPX: SCDs Dispo: Continue ICU management Case discussed with Dr. Bruce.
[2017-09-19] MEDS: Lactated Ringer's 1,000 ML IV SCH (16:10)
[2017-09-19 16:16] LABS: CK-MB 18.4 ng/mL (0.0-3.38)
[2017-09-19 16:18] LABS: TROPONIN I 3.65 ng/mL (0.00-0.120)
--- NOTE | 2017-09-19 16:51 | CP.PCM.CON ---
History of Present Illness - History of Present Illness History of Present Illness: 52-year-old male, presents to the emergency department with complaints of shortness of breath and blood tinged cough, developed yesterday. Patient states he had a cholecystectomy done yesterday by Dr Clayton, and states symptoms have been worsening since discharge last night. Patient notes an associated blood tinged cough with white sputum. He denies any nausea/vomiting, leg pain/ swelling, chest pain, back pain, dizziness, or any other associated symptoms. No other complaints at this time. Admitted to ICU with NSTEMI and Pneumonia Refered for ID eval of this - Medical History PMH: Arthritis, Cardia Arrhythmia, Depression, Gall Bladder Disease (GB removed) , Hepatitis (C), HTN, Hypercholesterolemia Denies: Fractures, Chronic Kidney Disease Surgical History: Appendectomy, Cholecystectomy, Endoscopy - [facility] Procedures LEFT HEART CARDIAC CATH (05/18/14) LT HEART ANGIOCARDIOGRAM (05/18/14) REVISION OR RELOCATION OF CARDIAC DEVICE POCKET (05/25/14) Review of Systems - Review of Systems All systems: reviewed and no additional remarkable complaints except - Constitutional Constitutional: As Per HPI - EENT Eyes: absent: As Per HPI, Blind Spots, Blurred Vision, Change in Vision, Decreased Night Vision, Diplopia, Discharge, Dry Eye, Exophthalmos, Floaters, Irritation, Itchy Eyes, Loss of Peripheral Vision, Pain, Photophobia, Requires Corrective Lenses, Sees Flashes, Spots in Vision, Tunnel Vision, Other Visual Disturbances, Loss of Vision, Other Ears: absent: As Per HPI, Decreased Hearing, Ear Discharge, Ear Pain, Tinnitus, Abnormal Hearing, Disequilibrium, Dizziness, Other Nose/Mouth/Throat: absent: As Per HPI, Epistaxis, Nasal Congestion, Nasal Discharge, Nasal Obstruction, Nasal Trauma, Nose Pain, Post Nasal Drip, Sinus Pain, Sinus Pressure, Bleeding Gums, Change in Voice, Dental Pain, Dry Mouth, Dysphagia, Halitosis, Hoarsness, Lip Swelling, Mouth Lesions, Mouth Pain, Odynophagia, Sore Throat, Throat Swelling, Tongue Swelling, Facial Pain, Neck Pain, Neck Mass, Other - Cardiovascular Cardiovascular: As Per HPI - Respiratory Respiratory: As Per HPI, Cough, Hemoptysis - Gastrointestinal Gastrointestinal: As Per HPI, Abdominal Pain - Genitourinary Genitourinary: absent: As Per HPI, Change in Urinary Stream, Difficulty Urinating, Dysuria, Flank Pain, Hematuria, Pyuria, Nocturia, Urinary Incontinence, Urinary Frequency, Urinary Hesitance, Urinary Urgency, Voiding Freq/Small Amts, Freq UTI, Hx Renal/Bladder Calculi, Hx /Renal Surgery, Bladder Distension, Other - Musculoskeletal Musculoskeletal: absent: As Per HPI, Abnormal Gait, Arthralgias, Atrophy, Back Pain, Deformity, Joint Swelling, Limited Range of Motion, Loss of Height, Muscle Cramps, Muscle Weakness, Myalgias, Neck Pain, Numbness, Radiating Pain into Limb, Stiffness, Tingling, Other - Integumentary Integumentary: absent: As Per HPI, Acne, Alopecia, Bleeding Lesions, Change in Hair, Change in Nails, Change in Pigmentation, Changing Lesions, Dry Skin, Erythema, Furuncle, Hirsutism, Lesions, New Lesions, Non-Healing Lesions, Photosensitivity, Pruritus, Rash, Skin Pain, Skin Ulcer, Sores, Striae, Swelling , Unusual Bruising, Wounds, Jaundice, Other - Neurological Neurological: absent: As Per HPI, Abnormal Gait, Abnormal Hearing, Abnormal Movements, Abnormal Speech, Behavioral Changes, Burning Sensations, Confusion, Convulsions, Disequilibrium, Dizziness, Numbness, Focal Weakness, Frequent Falls , Headaches, Lack of Coordination, Loss of Vision, Memory Loss, Paresthesias, Radicular Pain, Restless Legs, Sensory Deficit, Syncope, Tingling, Tremor, Vertigo, Weakness, Other Visual Disturbances, Other - Psychiatric Psychiatric: absent: As Per HPI, Abnormal Sleep Pattern, Anhedonia, Anxiety, Auditory Hallucinations, Behavioral Changes, Change in Appetite, Change in Libido, Confusion, Depression, Difficulty Concentrating, Hallucinations, Homicidal Ideation, Hopelessness, Irritability, Memory Loss, Mood Swings, Panic Attacks, Paranoia, Suicidal Ideation, Visual Hallucinations, Tactile Hallucinations, Other - Endocrine Endocrine: absent: As Per HPI, Change in Body Appearance, Change in Libido, Cold Intolorance, Deepening of Voice, Excessive Sweating, Fatigue, Flushing, Heat Intolorance, Increase in Ring/Shoe/Hat Size, Palpitations, Polydipsia, Polyphagia, Polyuria, Other - Hematologic/Lymphatic Hematologic: absent: As Per HPI, Easy Bleeding, Easy Bruising, Lymphadenopathy, Other Past Patient History - Past Medical History & Family History Past Medical History?: Yes - Past Social History Smoking Status: Former Smoker - CARDIAC Hx Cardia Arrhythmia: Yes Hx Hypercholesterolemia: Yes Hx Hypertension: Yes - HEENT Hx HEENT Problems: No - RENAL Hx Chronic Kidney Disease: No - HEMATOLOGICAL/ONCOLOGICAL Hx Blood Disorders: Yes Hx Hepatitis C: Yes ([place] AND NEGATIVE NOW) - INTEGUMENTARY Hx Dermatological Problems: Yes Hx Psoriasis: Yes (ON STEROID TREATMENT PRN) - MUSCULOSKELETAL/RHEUMATOLOGICAL Hx Arthritis: Yes Hx Falls: No Hx Fractures: No - GASTROINTESTINAL Hx Gall Bladder Disease: Yes (GB removed) - GENITOURINARY/GYNECOLOGICAL Hx Genitourinary Disorders: Yes Hx Prostate Problems: Yes (BPH) Other/Comment: ERECTILE DYSFUNCTION - PSYCHIATRIC Hx Depression: Yes 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) - SURGICAL HISTORY Hx Appendectomy: Yes Hx Cholecystectomy: Yes - ANESTHESIA Hx Anesthesia: Yes Hx Anesthesia Reactions: No Hx Malignant Hyperthermia: No Meds Allergies/Adverse Reactions: Allergies Allergy/AdvReac Type Severity Reaction Status Date / Time No Known Allergies Allergy Verified 09/19/17 07:44 - Medications Medications: Current Medications Albuterol/Ipratropium (Duoneb 3 Mg/0.5 Mg (3 Ml) Ud) 3 ml INH RQ6 NATHANAEL Azithromycin (Zithromax) 500 mg PO DAILY NATHANAEL PRN Reason: Protocol Heparin Sodium/Sodium Chloride (Heparin 14312 Units/250ml 1/2 Normal Saline) 25 ,000 units in 250 mls @ 10 mls/hr IV .Q24H ONE PRN Reason: Protocol Stop: 09/20/17 10:44 Last Admin: 09/19/17 12:30 Dose: 10 mls/hr Lactated Ringer's (Lactated Ringer's) 1,000 mls @ 75 mls/hr IV .[id number] NATHANAEL Last Admin: 09/19/17 16:10 Dose: 75 mls/hr Ceftriaxone Sodium 2 gm/ (Sodium Chloride) 100 mls @ 100 mls/hr IVPB Q24H NATHANAEL PRN Reason: Protocol Last Admin: 09/19/17 16:39 Dose: 100 mls/hr Pneumococcal Polyvalent Vaccine (Pneumovax 23 Vaccine) 0.5 ml SC .ONCE ONE Stop: 09/21/17 10:01 Physical Exam - Constitutional Appears: Non-toxic, Chronically Ill - Head Exam Head Exam: NORMOCEPHALIC - Eye Exam Eye Exam: PERRL. absent: Scleral icterus - ENT Exam ENT Exam: Mucous Membranes Dry - Neck Exam Neck exam: Negative for: Lymphadenopathy - Respiratory Exam Respiratory Exam: Decreased Breath Sounds, Rhonchi - Cardiovascular Exam Cardiovascular Exam: REGULAR RHYTHM, +S1, +S2 - GI/Abdominal Exam GI & Abdominal Exam: Diminished Bowel Sounds, Distended, Soft. absent: Guarding , Rebound, Rigid, Tenderness - Rectal Exam Rectal Exam: Deferred - Exam Exam: NORMAL INSPECTION - Extremities Exam Extremities exam: Positive for: pedal pulses present. Negative for: calf tenderness, pedal edema, tenderness - Back Exam Back exam: absent: CVA tenderness (L), CVA tenderness (R), paraspinal tenderness - Neurological Exam Neurological exam: Alert, CN II-XII Intact, Oriented x3, Reflexes Normal - Psychiatric Exam Psychiatric exam: Normal Mood - Skin Skin Exam: Dry, Intact Results - Vital Signs Recent Vital Signs: Last Vital Signs Temp 98.1 F 09/19/17 16:00 Pulse 61 09/19/17 16:00 Resp 22 09/19/17 16:00 BP 120/86 09/19/17 16:00 Pulse Ox 96 09/19/17 16:00 - Labs Result Diagrams: 09/19/17 08:29 09/19/17 08:29 Labs: Laboratory Results - last 24 hr 09/19/1718 09/19/17 08:29 08:29 08:29 WBC 22.1 H D RBC 4.89 Hgb 14.8 Hct 43.8 MCV 89.7 MCH 30.2 MCHC 33.7 RDW 14.4 Plt Count 304 MPV 9.0 Neut % (Auto) 87.6 H Lymph % (Auto) 8.0 L [place] % (Auto) 4.1 Eos % (Auto) 0.0 Baso % (Auto) 0.3 Neut # (Auto) 19.3 H Lymph # (Auto) 1.8 [place] # (Auto) 0.9 H Eos # (Auto) 0.0 Baso # (Auto) 0.1 Neutrophils % (Manual) 83 H Lymphocytes % (Manual) 7 L Monocytes % (Manual) 9 Eosinophils % (Manual) 1 Platelet Estimate Normal PT 12.9 H INR 1.2 APTT 30 D-Dimer, Quantitative 316 H Puncture Site pCO2 pO2 HCO3 ABG pH ABG Total CO2 ABG O2 Saturation ABG Base Excess Alejandro Test ABG Potassium A-a O2 Difference Respiratory Index Glucose Lactate FiO2 Sodium Potassium Chloride Carbon Dioxide Anion Gap BUN Creatinine Est GFR ( Amer) Est GFR (Non-Af Amer) Random Glucose Calcium Total Bilirubin AST ALT Alkaline Phosphatase Total Creatine Kinase CK-MB (Mass) Troponin I NT-Pro-B Natriuret Pep Total Protein Albumin Globulin Albumin/Globulin Ratio Arterial Blood Potassium Urine Color Yellow Urine Clarity Clear Urine pH 5.0 Ur Specific [place] 1.025 Urine Protein Negative Urine Glucose (UA) Normal Urine Ketones 1+ H Urine Blood Negative Urine Nitrate Negative Urine Bilirubin Negative Urine Urobilinogen Normal Ur Leukocyte Esterase Neg Urine WBC (Auto) 4 Urine RBC (Auto) 8 H Urine Bacteria Rare Urine Opiates Screen Urine Methadone Screen Ur Barbiturates Screen Ur Phencyclidine Scrn Ur Amphetamines Screen U Benzodiazepines Scrn U Oth Cocaine Metabols U Cannabinoids Screen 09/19/17 09/19/17 09/19/17 08:29 08:29 08:58 WBC RBC Hgb Hct MCV MCH MCHC RDW Plt Count MPV Neut % (Auto) Lymph % (Auto) [place] % (Auto) Eos % (Auto) Baso % (Auto) Neut # (Auto) Lymph # (Auto) [place] # (Auto) Eos # (Auto) Baso # (Auto) Neutrophils % (Manual) Lymphocytes % (Manual) Monocytes % (Manual) Eosinophils % (Manual) Platelet Estimate PT INR APTT D-Dimer, Quantitative Puncture Site L/b pCO2 36 pO2 46 L HCO3 23.4 ABG pH 7.41 ABG Total CO2 23.9 ABG O2 Saturation 88.4 L ABG Base Excess -1.4 Alejandro Test Na ABG Potassium 3.2 L A-a O2 Difference 59.0 Respiratory Index 1.3 Glucose 138 H Lactate 1.4 FiO2 21.0 Sodium 142 141.0 Potassium 4.2 Chloride 105 107.0 Carbon Dioxide 24 Anion Gap 17 BUN 10 Creatinine 0.6 L Est GFR ( Amer) > 60 Est GFR (Non-Af Amer) > 60 Random Glucose 144 H Calcium 9.4 Total Bilirubin 0.8 AST 66 H D ALT 36 Alkaline Phosphatase 92 Total Creatine Kinase 359 H CK-MB (Mass) 23.5 H Troponin I 4.8600 H* NT-Pro-B Natriuret Pep 7720 H Total Protein 7.1 Albumin 4.4 Globulin 2.7 Albumin/Globulin Ratio 1.6 Arterial Blood Potassium 3.2 L Urine Color Urine Clarity Urine pH Ur Specific [place] Urine Protein Urine Glucose (UA) Urine Ketones Urine Blood Urine Nitrate Urine Bilirubin Urine Urobilinogen Ur Leukocyte Esterase Urine WBC (Auto) Urine RBC (Auto) Urine Bacteria Urine Opiates Screen Positive H Urine Methadone Screen Positive H Ur Barbiturates Screen Negative Ur Phencyclidine Scrn Negative Ur Amphetamines Screen Negative U Benzodiazepines Scrn Positive U Oth Cocaine Metabols Negative U Cannabinoids Screen Positive H 09/19/17 15:14 WBC RBC Hgb Hct MCV MCH MCHC RDW Plt Count MPV Neut % (Auto) Lymph % (Auto) [place] % (Auto) Eos % (Auto) Baso % (Auto) Neut # (Auto) Lymph # (Auto) [place] # (Auto) Eos # (Auto) Baso # (Auto) Neutrophils % (Manual) Lymphocytes % (Manual) Monocytes % (Manual) Eosinophils % (Manual) Platelet Estimate PT INR APTT D-Dimer, Quantitative Puncture Site pCO2 pO2 HCO3 ABG pH ABG Total CO2 ABG O2 Saturation ABG Base Excess Alejandro Test ABG Potassium A-a O2 Difference Respiratory Index Glucose Lactate FiO2 Sodium Potassium Chloride Carbon Dioxide Anion Gap BUN Creatinine Est GFR ( Amer) Est GFR (Non-Af Amer) Random Glucose Calcium Total Bilirubin AST ALT Alkaline Phosphatase Total Creatine Kinase 266 H CK-MB (Mass) 18.4 H Troponin I 3.6500 H* NT-Pro-B Natriuret Pep Total Protein Albumin Globulin Albumin/Globulin Ratio Arterial Blood Potassium Urine Color Urine Clarity Urine pH Ur Specific [place] Urine Protein Urine Glucose (UA) Urine Ketones Urine Blood Urine Nitrate Urine Bilirubin Urine Urobilinogen Ur Leukocyte Esterase Urine WBC (Auto) Urine RBC (Auto) Urine Bacteria Urine Opiates Screen Urine Methadone Screen Ur Barbiturates Screen Ur Phencyclidine Scrn Ur Amphetamines Screen U Benzodiazepines Scrn U Oth Cocaine Metabols U Cannabinoids Screen Assessment & Plan (1) Hypoxia Status: Acute (2) Pneumonia Status: Acute (3) STEMI (ST elevation myocardial infarction) Status: Acute - Assessment and Plan (Free Text) Assessment: bilateral pneumonia s/p cholecystectomy NSTEMI await cultures cont Vanco / Zosyn for HAP cardiac work up including cardiac cath when stable
[2017-09-19] MEDS ORDERED: cefTRIAXone 2 GM in Sodium Chloride 0.9% 100 ML IVPB SCH (17:00)
--- NOTE | 2017-09-19 17:45 | CP.PCM.CON ---
History of Present Illness - History of Present Illness History of Present Illness: reason for consultation: hypoxemia, shortness of breath and pneumonia 52-year-old male with history of depression, hepatitis C, chronic arrhythmias status post robotic cholecystectomy yesterday presented to emergency room complaining of shortness of breath, cough with blood-tinged sputum. In the emergency room patient was placed on 100% nonrebreather mask for hypoxemia and left lung pneumonia. Patient also found to have elevated troponin. Patient denies chest pain, denies fever chills. Review of Systems - Review of Systems All systems: reviewed and no additional remarkable complaints except (shortness of breath and cough with blood-tinged sputum) Past Patient History - Past Medical History & Family History Past Medical History?: Yes - Past Social History Smoking Status: Former Smoker - CARDIAC Hx Cardia Arrhythmia: Yes Hx Hypercholesterolemia: Yes Hx Hypertension: Yes - HEENT Hx HEENT Problems: No - RENAL Hx Chronic Kidney Disease: No - HEMATOLOGICAL/ONCOLOGICAL Hx Blood Disorders: Yes Hx Hepatitis C: Yes ([place]ON[place] AND NEGATIVE NOW) - INTEGUMENTARY Hx Dermatological Problems: Yes Hx Psoriasis: Yes (ON STEROID TREATMENT PRN) - MUSCULOSKELETAL/RHEUMATOLOGICAL Hx Arthritis: Yes Hx Falls: No Hx Fractures: No - GASTROINTESTINAL Hx Gall Bladder Disease: Yes (GB removed) - GENITOURINARY/GYNECOLOGICAL Hx Genitourinary Disorders: Yes Hx Prostate Problems: Yes (BPH) Other/Comment: ERECTILE DYSFUNCTION - PSYCHIATRIC Hx Depression: Yes 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) - SURGICAL HISTORY Hx Appendectomy: Yes Hx Cholecystectomy: Yes - ANESTHESIA Hx Anesthesia: Yes Hx Anesthesia Reactions: No Hx Malignant Hyperthermia: No Meds Allergies/Adverse Reactions: Allergies Allergy/AdvReac Type Severity Reaction Status Date / Time No Known Allergies Allergy Verified 09/19/17 07:44 - Medications Medications: Current Medications Albuterol/Ipratropium (Duoneb 3 Mg/0.5 Mg (3 Ml) Ud) 3 ml INH RQ6 NATHANAEL Heparin Sodium/Sodium Chloride (Heparin 19784 Units/250ml 1/2 Normal Saline) 25 ,000 units in 250 mls @ 10 mls/hr IV .Q24H ONE PRN Reason: Protocol Stop: 09/20/17 10:44 Last Admin: 09/19/17 12:30 Dose: 10 mls/hr Lactated Ringer's (Lactated Ringer's) 1,000 mls @ 75 mls/hr IV .[id number] [facility] Last Admin: 09/19/17 16:10 Dose: 75 mls/hr Ceftriaxone Sodium 2 gm/ (Sodium Chloride) 100 mls @ 100 mls/hr IVPB Q24H NATHANAEL PRN Reason: Protocol Last Admin: 09/19/17 16:39 Dose: 100 mls/hr Piperacillin Sod/Tazobactam Sod (Zosyn 3.375 Gm Iv Premix) 3.375 gm in 50 mls @ 100 mls/hr IVPB Q6H NATHANAEL PRN Reason: Protocol Vancomycin/Sodium Chloride (Vancomycin 1 Gm/Ns 200 Ml) 1 gm in 200 mls @ 166.6 mls/hr IVPB Q12H NATHANAEL PRN Reason: Protocol Stop: 09/24/17 22:01 Pneumococcal Polyvalent Vaccine (Pneumovax 23 Vaccine) 0.5 ml SC .ONCE ONE Stop: 09/21/17 10:01 Physical Exam - Head Exam Head Exam: ATRAUMATIC, NORMOCEPHALIC - ENT Exam ENT Exam: Mucous Membranes Moist - Neck Exam Neck exam: Positive for: Normal Inspection - Respiratory Exam Respiratory Exam: Rales - Cardiovascular Exam Cardiovascular Exam: REGULAR RHYTHM - GI/Abdominal Exam GI & Abdominal Exam: Normal Bowel Sounds, Soft - Extremities Exam Extremities exam: Positive for: normal inspection - Neurological Exam Neurological exam: Alert Results - Vital Signs Recent Vital Signs: Last Vital Signs Temp 98.1 F 09/19/17 16:00 Pulse 69 09/19/17 17:10 Resp 14 09/19/17 17:10 BP 136/86 09/19/17 17:04 Pulse Ox 95 09/19/17 17:10 - Labs Result Diagrams: 09/19/17 08:29 09/19/17 08:29 Labs: Laboratory Results - last 24 hr 09/19/1718 09/19/17 08:29 08:29 08:29 WBC 22.1 H D RBC 4.89 Hgb 14.8 Hct 43.8 MCV 89.7 MCH 30.2 MCHC 33.7 RDW 14.4 Plt Count 304 MPV 9.0 Neut % (Auto) 87.6 H Lymph % (Auto) 8.0 L [place] % (Auto) 4.1 Eos % (Auto) 0.0 Baso % (Auto) 0.3 Neut # (Auto) 19.3 H Lymph # (Auto) 1.8 [place] # (Auto) 0.9 H Eos # (Auto) 0.0 Baso # (Auto) 0.1 Neutrophils % (Manual) 83 H Lymphocytes % (Manual) 7 L Monocytes % (Manual) 9 Eosinophils % (Manual) 1 Platelet Estimate Normal PT 12.9 H INR 1.2 APTT 30 D-Dimer, Quantitative 316 H Puncture Site pCO2 pO2 HCO3 ABG pH ABG Total CO2 ABG O2 Saturation ABG Base Excess Alejandro Test ABG Potassium A-a O2 Difference Respiratory Index Glucose Lactate FiO2 Sodium Potassium Chloride Carbon Dioxide Anion Gap BUN Creatinine Est GFR ( Amer) Est GFR (Non-Af Amer) Random Glucose Calcium Total Bilirubin AST ALT Alkaline Phosphatase Total Creatine Kinase CK-MB (Mass) Troponin I NT-Pro-B Natriuret Pep Total Protein Albumin Globulin Albumin/Globulin Ratio Arterial Blood Potassium Urine Color Yellow Urine Clarity Clear Urine pH 5.0 Ur Specific [place] 1.025 Urine Protein Negative Urine Glucose (UA) Normal Urine Ketones 1+ H Urine Blood Negative Urine Nitrate Negative Urine Bilirubin Negative Urine Urobilinogen Normal Ur Leukocyte Esterase Neg Urine WBC (Auto) 4 Urine RBC (Auto) 8 H Urine Bacteria Rare Urine Opiates Screen Urine Methadone Screen Ur Barbiturates Screen Ur Phencyclidine Scrn Ur Amphetamines Screen U Benzodiazepines Scrn U Oth Cocaine Metabols U Cannabinoids Screen 09/19/17 09/19/17 09/19/17 08:29 08:29 08:58 WBC RBC Hgb Hct MCV MCH MCHC RDW Plt Count MPV Neut % (Auto) Lymph % (Auto) [place] % (Auto) Eos % (Auto) Baso % (Auto) Neut # (Auto) Lymph # (Auto) [place] # (Auto) Eos # (Auto) Baso # (Auto) Neutrophils % (Manual) Lymphocytes % (Manual) Monocytes % (Manual) Eosinophils % (Manual) Platelet Estimate PT INR APTT D-Dimer, Quantitative Puncture Site L/b pCO2 36 pO2 46 L HCO3 23.4 ABG pH 7.41 ABG Total CO2 23.9 ABG O2 Saturation 88.4 L ABG Base Excess -1.4 Alejandro Test Na ABG Potassium 3.2 L A-a O2 Difference 59.0 Respiratory Index 1.3 Glucose 138 H Lactate 1.4 FiO2 21.0 Sodium 142 141.0 Potassium 4.2 Chloride 105 107.0 Carbon Dioxide 24 Anion Gap 17 BUN 10 Creatinine 0.6 L Est GFR ( Amer) > 60 Est GFR (Non-Af Amer) > 60 Random Glucose 144 H Calcium 9.4 Total Bilirubin 0.8 AST 66 H D ALT 36 Alkaline Phosphatase 92 Total Creatine Kinase 359 H CK-MB (Mass) 23.5 H Troponin I 4.8600 H* NT-Pro-B Natriuret Pep 7720 H Total Protein 7.1 Albumin 4.4 Globulin 2.7 Albumin/Globulin Ratio 1.6 Arterial Blood Potassium 3.2 L Urine Color Urine Clarity Urine pH Ur Specific [place] Urine Protein Urine Glucose (UA) Urine Ketones Urine Blood Urine Nitrate Urine Bilirubin Urine Urobilinogen Ur Leukocyte Esterase Urine WBC (Auto) Urine RBC (Auto) Urine Bacteria Urine Opiates Screen Positive H Urine Methadone Screen Positive H Ur Barbiturates Screen Negative Ur Phencyclidine Scrn Negative Ur Amphetamines Screen Negative U Benzodiazepines Scrn Positive U Oth Cocaine Metabols Negative U Cannabinoids Screen Positive H 09/19/17 15:14 WBC RBC Hgb Hct MCV MCH MCHC RDW Plt Count MPV Neut % (Auto) Lymph % (Auto) [place] % (Auto) Eos % (Auto) Baso % (Auto) Neut # (Auto) Lymph # (Auto) [place] # (Auto) Eos # (Auto) Baso # (Auto) Neutrophils % (Manual) Lymphocytes % (Manual) Monocytes % (Manual) Eosinophils % (Manual) Platelet Estimate PT INR APTT D-Dimer, Quantitative Puncture Site pCO2 pO2 HCO3 ABG pH ABG Total CO2 ABG O2 Saturation ABG Base Excess Alejandro Test ABG Potassium A-a O2 Difference Respiratory Index Glucose Lactate FiO2 Sodium Potassium Chloride Carbon Dioxide Anion Gap BUN Creatinine Est GFR ( Amer) Est GFR (Non-Af Amer) Random Glucose Calcium Total Bilirubin AST ALT Alkaline Phosphatase Total Creatine Kinase 266 H CK-MB (Mass) 18.4 H Troponin I 3.6500 H* NT-Pro-B Natriuret Pep Total Protein Albumin Globulin Albumin/Globulin Ratio Arterial Blood Potassium Urine Color Urine Clarity Urine pH Ur Specific [place] Urine Protein Urine Glucose (UA) Urine Ketones Urine Blood Urine Nitrate Urine Bilirubin Urine Urobilinogen Ur Leukocyte Esterase Urine WBC (Auto) Urine RBC (Auto) Urine Bacteria Urine Opiates Screen Urine Methadone Screen Ur Barbiturates Screen Ur Phencyclidine Scrn Ur Amphetamines Screen U Benzodiazepines Scrn U Oth Cocaine Metabols U Cannabinoids Screen Assessment & Plan - Assessment and Plan (Free Text) Assessment: 52-year-old male presented with shortness of breath and cough with hypoxemia and left lung infiltrate ICU monitoring IV antibiotics Followup culture and sens Cardiac workup for elevated troponin echocardiogram Followup ABG and chest x-ray
[2017-09-19] MEDS: Piperacill/Tazo 3.375gm in Dex 3.375 GM/50 ML BAG IVPB SCH (18:21)
[2017-09-19] MEDS ORDERED: Heparin25000 units/250ml 1/2NS 25,000 UNITS/250 ML BAG IV PRN (19:25)
[2017-09-19] MEDS: Albuterol-Ipratrop 3 mg / 0.5 (3 ml) UD INH SCH (19:43)
[2017-09-19] MEDS: Heparin25000 units/250ml 1/2NS 25,000 UNITS/250 ML BAG IV PRN (20:15)
[2017-09-19] MEDS: Vancomycin 1 gm/NS 200 ml 1 GM/200 ML BAG IVPB SCH (22:11)
[2017-09-19 23:17] LABS: CK-MB 12.1 ng/mL (0.0-3.38); TROPONIN I 3.21 ng/mL (0.00-0.120)
[2017-09-20] MEDS: Piperacill/Tazo 3.375gm in Dex 3.375 GM/50 ML BAG IVPB SCH ×4 (00:50→18:00)
[2017-09-20] MEDS: Albuterol-Ipratrop 3 mg / 0.5 (3 ml) UD INH SCH ×4 (01:18→20:10)
[2017-09-20] MEDS: Lactated Ringer's 1,000 ML IV SCH ×3 (05:20→21:47)
[2017-09-20] MEDS ORDERED: Methadone 40 mg Tab PO ONE (06:30)
[2017-09-20 06:34] LABS: BASO % 0.3 % (0.0-2.0); HEMOGLOBIN 14.1 g/dL (12.0-18.0); LYMPH # 2.6 K/uL (1.0-4.3); LYMPH % 17.8 % (20.0-40.0); MEAN CELL VOLUME 89.3 fL (80.0-94.0); MEAN CORPUSCULAR HEMOGLOBIN 30.3 pg (27.0-31.0); MEAN CORPUSCULAR HGB CONC 33.9 g/dL (33.0-37.0); MEAN PLATELET VOLUME 9.5 fL (7.2-11.7); MONO # 0.8 K/uL (0.0-0.8); MONO % 5.8 % (0.0-10.0); NEUT # 11.2 K/uL (1.8-7.0); NEUT % 76.1 % (50.0-75.0); RBC 4.66 Mil/uL (4.40-5.90); WHITE BLOOD COUNT 14.7 K/uL (4.8-10.8)
[2017-09-20 06:50] LABS: ALB/GLOB RATIO 1.6 (1.0-2.1); ALBUMIN 4.3 g/dL (3.5-5.0); ALT/SGPT 44 U/L (21-72); AST/SGOT 62 U/L (17-59); BLOOD UREA NITROGEN 12 mg/dL (9-20); CALCIUM 9.2 mg/dl (8.6-10.4); GFR AFRICAN-AMERICAN > 60; GFR NON-AFRICAN AMERICAN > 60; HDL CHOLESTEROL 41 mg/dL (30-70)
[2017-09-20 07:00] LABS: LDL CHOLESTEROL 88 mg/dL (0-129)
[2017-09-20 07:24] LABS: HEPATITIS B SURFACE AG Negative (NEGATIVE)
[2017-09-20 08:21] LABS: SQUAMOUS EPITHIAL < 1 /hpf (0-5); URINE BACTERIA RARE (<OCC); URINE BILIRUBIN NEGATIVE (NEGATIVE); URINE BLOOD NEGATIVE (NEGATIVE); URINE CLARITY Hazy (Clear); URINE COLOR Yellow (YELLOW); URINE GLUCOSE (UA) NORMAL (Normal); URINE LEUKOCYTE ESTERASE NEG Leu/uL (Negative); URINE PROTEIN NEGATIVE (NEGATIVE); URINE UROBILINOGEN NORMAL mg/dL (0.2-1.0)
[2017-09-20] MEDS: Vancomycin 1 gm/NS 200 ml 1 GM/200 ML BAG IVPB SCH ×2 (09:00→21:47)
--- NOTE | 2017-09-20 09:00 | RAD ---
Date of service: 09/20/2017 PROCEDURE: CHEST RADIOGRAPH, 1 VIEW HISTORY: PNA COMPARISON: CTA chest from 09/19/2017. FINDINGS: LUNGS: The lungs are well inflated. There is interval near complete resolution of airspace disease in the left lung. PLEURA: No pneumothorax or pleural fluid seen. CARDIOVASCULAR: Persistent mild cardiomegaly and mild pulmonary venous congestion. OSSEOUS STRUCTURES: No significant abnormalities. VISUALIZED UPPER ABDOMEN: Normal. OTHER FINDINGS: None. IMPRESSION: Interval near complete resolution of airspace disease in the left lung.
[2017-09-20] MEDS: guaiFENesin 600 mg ER Tab PO SCH ×2 (09:28→17:00)
--- NOTE | 2017-09-20 11:06 | CP.PCM.PN ---
Subjective - Date & Time of Evaluation Date of Evaluation: 09/20/17 Time of Evaluation: 10:05 - Subjective Subjective: the patient seen and examined Is sitting comfortably in no acute distress Denies shortness of breath and cough is better Afebrile On heparin drip Objective - Vital Signs/Intake and Output Vital Signs (last 24 hours): Temp Pulse Resp BP Pulse Ox 97.8 F 59 L 11 L 116/75 98 09/20/17 08:00 09/20/17 09:30 09/20/17 09:30 09/20/17 08:36 09/20/17 08:00 Intake and Output: 09/20/17 09/20/17 06:59 18:59 Intake Total 1110.8 394.4 Output Total 850 Balance 260.8 394.4 - Medications Medications: Current Medications Albuterol/Ipratropium (Duoneb 3 Mg/0.5 Mg (3 Ml) Ud) 3 ml INH RQ6 [facility] Last Admin: 09/20/17 07:40 Dose: 3 ml Aspirin (Aspirin Chewable) 81 mg PO DAILY [facility] Last Admin: 09/20/17 09:28 Dose: 81 mg Guaifenesin (Mucinex La) 600 mg PO BID [facility] Last Admin: 09/20/17 09:28 Dose: 600 mg Lactated Ringer's (Lactated Ringer's) 1,000 mls @ 75 mls/hr IV .[id number] [facility] Last Admin: 09/20/17 05:20 Dose: 75 mls/hr Piperacillin Sod/Tazobactam Sod (Zosyn 3.375 Gm Iv Premix) 3.375 gm in 50 mls @ 100 mls/hr IVPB Q6H [facility]HA[facility]EL PRN Reason: Protocol Last Admin: 09/20/17 05:20 Dose: 100 mls/hr Vancomycin/Sodium Chloride (Vancomycin 1 Gm/Ns 200 Ml) 1 gm in 200 mls @ 166.6 mls/hr IVPB Q12H [facility] PRN Reason: Protocol Stop: 09/24/17 22:01 Last Admin: 09/20/17 09:00 Dose: 166.6 mls/hr Heparin Sodium/Sodium Chloride (Heparin 54290 Units/250ml 1/2 Normal Saline) 25 ,000 units in 250 mls @ 10.886 mls/hr IV .[id number] PRN; Protocol; 12 U/KG/HR PRN Reason: PROTOCOL Last Admin: 09/19/17 20:15 Dose: 12 u/kg/hr, 10.886 mls/hr Ondansetron HCl (Zofran Inj) 4 mg IVP Q8H PRN PRN Reason: Nausea/Vomiting Last Admin: 09/20/17 01:18 Dose: 4 mg Pneumococcal Polyvalent Vaccine (Pneumovax 23 Vaccine) 0.5 ml SC .ONCE ONE Stop: 09/21/17 10:01 Rosuvastatin Calcium (Crestor) 5 mg PO HS [facility]HANAEL - Labs Labs: 09/20/17 06:24 09/20/17 06:24 PT 12.9 SECONDS (9.7-12.2) H 09/19/17 08:29 INR 1.2 09/19/17 08:29 APTT 54 SECONDS (21-34) H D 09/20/17 06:24 - Head Exam Head Exam: ATRAUMATIC, NORMOCEPHALIC - Eye Exam Eye Exam: Normal appearance - ENT Exam ENT Exam: Mucous Membranes Moist - Neck Exam Neck Exam: Normal Inspection - Respiratory Exam Respiratory Exam: Rales - Cardiovascular Exam Cardiovascular Exam: REGULAR RHYTHM - GI/Abdominal Exam GI & Abdominal Exam: Soft, Normal Bowel Sounds Assessment and Plan (1) Pneumonia Assessment & Plan: continue IV antibiotics Followup chest x-ray Followup culture and sensitivity Clinically better Status: Acute (2) Elevated troponin Assessment & Plan: possible cardiac catheter on Saturday as per cardiology Status: Acute
--- NOTE | 2017-09-20 14:44 | CP.PCM.PN ---
Subjective - Date & Time of Evaluation Date of Evaluation: 09/20/17 Time of Evaluation: 07:00 - Subjective Subjective: 52-year-old male with history of depression, hepatitis C, chronic arrhythmias status post robotic cholecystectomy Saturday presented to emergency room complaining of shortness of breath, cough with blood-tinged sputum. In the emergency room patient was placed on 100% nonrebreather mask for hypoxemia and left lung pneumonia. Patient also found to have elevated troponin. Objective - Vital Signs/Intake and Output Vital Signs (last 24 hours): Temp Pulse Resp BP Pulse Ox 98.1 F 51 L 12 107/74 98 09/20/17 12:00 09/20/17 12:00 09/20/17 12:00 09/20/17 11:35 09/20/17 08:00 Intake and Output: 09/20/17 09/20/17 06:59 18:59 Intake Total 1110.8 541.4 Output Total 850 Balance 260.8 541.4 - Medications Medications: Current Medications Albuterol/Ipratropium (Duoneb 3 Mg/0.5 Mg (3 Ml) Ud) 3 ml INH RQ6 [facility] Last Admin: 09/20/17 13:32 Dose: 3 ml Aspirin (Aspirin Chewable) 81 mg PO DAILY [facility] Last Admin: 09/20/17 09:28 Dose: 81 mg Guaifenesin (Mucinex La) 600 mg PO BID [facility] Last Admin: 09/20/17 09:28 Dose: 600 mg Lactated Ringer's (Lactated Ringer's) 1,000 mls @ 75 mls/hr IV .[id number] [facility] Last Admin: 09/20/17 05:20 Dose: 75 mls/hr Piperacillin Sod/Tazobactam Sod (Zosyn 3.375 Gm Iv Premix) 3.375 gm in 50 mls @ 100 mls/hr IVPB Q6H [facility] PRN Reason: Protocol Last Admin: 09/20/17 05:20 Dose: 100 mls/hr Vancomycin/Sodium Chloride (Vancomycin 1 Gm/Ns 200 Ml) 1 gm in 200 mls @ 166.6 mls/hr IVPB Q12H [facility]EL PRN Reason: Protocol Stop: 09/24/17 22:01 Last Admin: 09/20/17 09:00 Dose: 166.6 mls/hr Heparin Sodium/Sodium Chloride (Heparin 06691 Units/250ml 1/2 Normal Saline) 25 ,000 units in 250 mls @ 10.886 mls/hr IV .[id number] PRN; Protocol; 12 U/KG/HR PRN Reason: PROTOCOL Last Admin: 09/19/17 20:15 Dose: 12 u/kg/hr, 10.886 mls/hr Methadone HCl (Methadose) 80 mg PO DAILY [facility] Methadone HCl (Methadone) 30 mg PO DAILY [facility] Ondansetron HCl (Zofran Inj) 4 mg IVP Q8H PRN PRN Reason: Nausea/Vomiting Last Admin: 09/20/17 01:18 Dose: 4 mg Pneumococcal Polyvalent Vaccine (Pneumovax 23 Vaccine) 0.5 ml SC .ONCE ONE Stop: 09/21/17 10:01 Rosuvastatin Calcium (Crestor) 5 mg PO HS [facility]NA[facility] - Labs Labs: 09/20/17 06:24 09/20/17 06:24 PT 12.9 SECONDS (9.7-12.2) H 09/19/17 08:29 INR 1.2 09/19/17 08:29 APTT 54 SECONDS (21-34) H D 09/20/17 06:24 - Constitutional Appears: Non-toxic, Chronically Ill - Head Exam Head Exam: NORMOCEPHALIC - Eye Exam Eye Exam: PERRL. absent: Scleral icterus - ENT Exam ENT Exam: Mucous Membranes Dry - Neck Exam Neck Exam: absent: Lymphadenopathy - Respiratory Exam Respiratory Exam: Decreased Breath Sounds, Prolonged Expiratory Phase, Rhonchi - Cardiovascular Exam Cardiovascular Exam: REGULAR RHYTHM, +S1, +S2 - GI/Abdominal Exam GI & Abdominal Exam: Distended, Soft. absent: Tenderness - Rectal Exam Rectal Exam: Deferred - Exam Exam: NORMAL INSPECTION - Extremities Exam Extremities Exam: absent: Pedal Edema - Back Exam Back Exam: absent: CVA tenderness (L), CVA tenderness (R) - Neurological Exam Neurological Exam: Alert, Awake, CN II-XII Intact, Oriented x3 - Psychiatric Exam Psychiatric exam: Normal Mood - Skin Skin Exam: Dry Assessment and Plan (1) Hypoxia Status: Acute (2) Pneumonia Status: Acute (3) STEMI (ST elevation myocardial infarction) Status: Acute - Assessment and Plan (Free Text) Assessment: post op NSTEMI and pneumonia cultures sent empiric IV antibiotics started
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
--- NOTE | 2017-09-20 16:26 | CP.PCM.CON ---
<Dustin Castellano - Last Filed: 09/20/17 16:44> History of Present Illness - History of Present Illness History of Present Illness: 52M with PMHx of HTN, hyperlipidemia,opioid use disorder on methadone, Hep C, s /p robotic cholecystectomy 09/19/17 who presented to ED with complaints of cough and SOB. Patient found to have pneumonia on CXR and elevated troponin- patient was started on antibiotics for PNA and heparin drip for NSTEMI. LFTs are within normal limits. Tolerating diet. PMHx: as stated above PSHx: Cholecystectomy (09/18/17), appendectomy Social: Former cigarette smoker, 1ppd for 2 years, quit 3 years ago. On methadone x2 years. Review of Systems - Review of Systems Review of Systems: 12 pt ROS unremarkable except as state din HPI Past Patient History - Past Medical History & Family History Past Medical History?: Yes - Past Social History Smoking Status: Former Smoker - CARDIAC Hx Cardia Arrhythmia: Yes Hx Hypercholesterolemia: Yes Hx Hypertension: Yes - HEENT Hx HEENT Problems: No - RENAL Hx Chronic Kidney Disease: No - HEMATOLOGICAL/ONCOLOGICAL Hx Blood Disorders: Yes Hx Hepatitis C: Yes ([place] AND NEGATIVE NOW) - INTEGUMENTARY Hx Dermatological Problems: Yes Hx Psoriasis: Yes (ON STEROID TREATMENT PRN) - MUSCULOSKELETAL/RHEUMATOLOGICAL Hx Arthritis: Yes Hx Falls: No Hx Fractures: No - GASTROINTESTINAL Hx Gall Bladder Disease: Yes (GB removed) - GENITOURINARY/GYNECOLOGICAL Hx Genitourinary Disorders: Yes Hx Prostate Problems: Yes (BPH) Other/Comment: ERECTILE DYSFUNCTION - PSYCHIATRIC Hx Depression: Yes 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) - SURGICAL HISTORY Hx Appendectomy: Yes Hx Cholecystectomy: Yes - ANESTHESIA Hx Anesthesia: Yes Hx Anesthesia Reactions: No Hx Malignant Hyperthermia: No Meds Allergies/Adverse Reactions: Allergies Allergy/AdvReac Type Severity Reaction Status Date / Time No Known Allergies Allergy Verified 09/19/17 07:44 - Medications Medications: Current Medications Albuterol/Ipratropium (Duoneb 3 Mg/0.5 Mg (3 Ml) Ud) 3 ml INH RQ6 [facility] Last Admin: 09/20/17 13:32 Dose: 3 ml Aspirin (Aspirin Chewable) 81 mg PO DAILY [facility] Last Admin: 09/20/17 09:28 Dose: 81 mg Guaifenesin (Mucinex La) 600 mg PO BID [facility] Last Admin: 09/20/17 09:28 Dose: 600 mg Lactated Ringer's (Lactated Ringer's) 1,000 mls @ 75 mls/hr IV .[id number] [facility] Last Admin: 09/20/17 05:20 Dose: 75 mls/hr Piperacillin Sod/Tazobactam Sod (Zosyn 3.375 Gm Iv Premix) 3.375 gm in 50 mls @ 100 mls/hr IVPB Q6H [facility] PRN Reason: Protocol Last Admin: 09/20/17 05:20 Dose: 100 mls/hr Vancomycin/Sodium Chloride (Vancomycin 1 Gm/Ns 200 Ml) 1 gm in 200 mls @ 166.6 mls/hr IVPB Q12H [facility] PRN Reason: Protocol Stop: 09/24/17 22:01 Last Admin: 09/20/17 09:00 Dose: 166.6 mls/hr Heparin Sodium/Sodium Chloride (Heparin 61477 Units/250ml 1/2 Normal Saline) 25 ,000 units in 250 mls @ 10.886 mls/hr IV .[id number] PRN; Protocol; 12 U/KG/HR PRN Reason: PROTOCOL Last Admin: 09/19/17 20:15 Dose: 12 u/kg/hr, 10.886 mls/hr Methadone HCl (Methadose) 80 mg PO DAILY [facility] Methadone HCl (Methadone) 30 mg PO DAILY [facility] Ondansetron HCl (Zofran Inj) 4 mg IVP Q8H PRN PRN Reason: Nausea/Vomiting Last Admin: 09/20/17 01:18 Dose: 4 mg Pneumococcal Polyvalent Vaccine (Pneumovax 23 Vaccine) 0.5 ml SC .ONCE ONE Stop: 09/21/17 10:01 Rosuvastatin Calcium (Crestor) 5 mg PO HS [facility] Physical Exam - Constitutional Appears: No Acute Distress - Head Exam Head Exam: NORMOCEPHALIC - Eye Exam Eye Exam: Normal appearance - ENT Exam ENT Exam: Mucous Membranes Moist - Respiratory Exam Respiratory Exam: NORMAL BREATHING PATTERN - Cardiovascular Exam Cardiovascular Exam: +S1, +S2 - GI/Abdominal Exam GI & Abdominal Exam: Soft - Neurological Exam Neurological exam: Alert, Oriented x3 - Psychiatric Exam Psychiatric exam: Normal Mood - Skin Skin Exam: Dry, Intact, Warm Results - Vital Signs Recent Vital Signs: Last Vital Signs Temp 98.1 F 09/20/17 12:00 Pulse 55 L 09/20/17 15:35 Resp 13 09/20/17 15:35 BP 109/79 09/20/17 15:35 Pulse Ox 98 09/20/17 08:00 - Labs Result Diagrams: 09/20/17 06:24 09/20/17 06:24 Labs: Laboratory Results - last 24 hr 09/19/17 09/19/17 09/19/17 18:29 21:06 22:43 WBC RBC Hgb Hct MCV MCH MCHC RDW Plt Count MPV Neut % (Auto) Lymph % (Auto) [place] % (Auto) Eos % (Auto) Baso % (Auto) Neut # (Auto) Lymph # (Auto) [place] # (Auto) Eos # (Auto) Baso # (Auto) APTT 62 H D Sodium Potassium Chloride Carbon Dioxide Anion Gap BUN Creatinine Est GFR ( Amer) Est GFR (Non-Af Amer) POC Glucose (mg/dL) 119 H Random Glucose Hemoglobin A1c Calcium Phosphorus Magnesium Total Bilirubin AST ALT Alkaline Phosphatase Total Creatine Kinase 197 H CK-MB (Mass) 12.1 H Troponin I 3.2100 H* Total Protein Albumin Globulin Albumin/Globulin Ratio Triglycerides Cholesterol LDL Cholesterol Direct HDL Cholesterol Urine Color Urine Clarity Urine pH Ur Specific [place] Urine Protein Urine Glucose (UA) Urine Ketones Urine Blood Urine Nitrate Urine Bilirubin Urine Urobilinogen Ur Leukocyte Esterase Urine WBC (Auto) Urine RBC (Auto) Ur Squamous Epith Cells Urine Bacteria Hep Bs Antigen HIV 1&2 Antibody Screen 09/19/17 09/20/17 09/20/17 22:43 06:24 06:24 WBC 14.7 H RBC 4.66 Hgb 14.1 Hct 41.7 MCV 89.3 MCH 30.3 MCHC 33.9 RDW 14.0 Plt Count 226 MPV 9.5 Neut % (Auto) 76.1 H Lymph % (Auto) 17.8 L [place] % (Auto) 5.8 Eos % (Auto) 0.0 Baso % (Auto) 0.3 Neut # (Auto) 11.2 H Lymph # (Auto) 2.6 [place] # (Auto) 0.8 Eos # (Auto) 0.0 Baso # (Auto) 0.0 APTT 64 H Sodium 139 Potassium 3.9 Chloride 101 Carbon Dioxide 28 Anion Gap 13 BUN 12 Creatinine 0.7 L Est GFR ( Amer) > 60 Est GFR (Non-Af Amer) > 60 POC Glucose (mg/dL) Random Glucose 115 H Hemoglobin A1c Calcium 9.2 Phosphorus 2.9 Magnesium 1.8 Total Bilirubin 0.7 AST 62 H ALT 44 Alkaline Phosphatase 88 Total Creatine Kinase CK-MB (Mass) Troponin I Total Protein 7.1 Albumin 4.3 Globulin 2.8 Albumin/Globulin Ratio 1.6 Triglycerides 111 D Cholesterol 168 LDL Cholesterol Direct 88 HDL Cholesterol 41 Urine Color Urine Clarity Urine pH Ur Specific [place] Urine Protein Urine Glucose (UA) Urine Ketones Urine Blood Urine Nitrate Urine Bilirubin Urine Urobilinogen Ur Leukocyte Esterase Urine WBC (Auto) Urine RBC (Auto) Ur Squamous Epith Cells Urine Bacteria Hep Bs Antigen Negative HIV 1&2 Antibody Screen 09/20/17 09/20/17 09/20/17 06:24 06:24 06:24 WBC RBC Hgb Hct MCV MCH MCHC RDW Plt Count MPV Neut % (Auto) Lymph % (Auto) [place] % (Auto) Eos % (Auto) Baso % (Auto) Neut # (Auto) Lymph # (Auto) [place] # (Auto) Eos # (Auto) Baso # (Auto) APTT 54 H D Sodium Potassium Chloride Carbon Dioxide Anion Gap BUN Creatinine Est GFR ( Amer) Est GFR (Non-Af Amer) POC Glucose (mg/dL) Random Glucose Hemoglobin A1c 5.9 Calcium Phosphorus Magnesium Total Bilirubin AST ALT Alkaline Phosphatase Total Creatine Kinase CK-MB (Mass) Troponin I Total Protein Albumin Globulin Albumin/Globulin Ratio Triglycerides Cholesterol LDL Cholesterol Direct HDL Cholesterol Urine Color Urine Clarity Urine pH Ur Specific [place] Urine Protein Urine Glucose (UA) Urine Ketones Urine Blood Urine Nitrate Urine Bilirubin Urine Urobilinogen Ur Leukocyte Esterase Urine WBC (Auto) Urine RBC (Auto) Ur Squamous Epith Cells Urine Bacteria Hep Bs Antigen HIV 1&2 Antibody Screen Negative 09/20/17 07:29 WBC RBC Hgb Hct MCV MCH MCHC RDW Plt Count MPV Neut % (Auto) Lymph % (Auto) [place] % (Auto) Eos % (Auto) Baso % (Auto) Neut # (Auto) Lymph # (Auto) [place] # (Auto) Eos # (Auto) Baso # (Auto) APTT Sodium Potassium Chloride Carbon Dioxide Anion Gap BUN Creatinine Est GFR ( Amer) Est GFR (Non-Af Amer) POC Glucose (mg/dL) Random Glucose Hemoglobin A1c Calcium Phosphorus Magnesium Total Bilirubin AST ALT Alkaline Phosphatase Total Creatine Kinase CK-MB (Mass) Troponin I Total Protein Albumin Globulin Albumin/Globulin Ratio Triglycerides Cholesterol LDL Cholesterol Direct HDL Cholesterol Urine Color Yellow Urine Clarity Hazy Urine pH 5.0 Ur Specific [place] 1.032 H Urine Protein Negative Urine Glucose (UA) Normal Urine Ketones Trace Urine Blood Negative Urine Nitrate Negative Urine Bilirubin Negative Urine Urobilinogen Normal Ur Leukocyte Esterase Neg Urine WBC (Auto) 1 Urine RBC (Auto) 4 H Ur Squamous Epith Cells < 1 Urine Bacteria Rare Hep Bs Antigen HIV 1&2 Antibody Screen Assessment & Plan - Assessment and Plan (Free Text) Assessment: 52M s/p robotic pavel POD2 complicated by aspiration pneumonitis and NSTEMI Plan: Elevated troponins likely 2/2 aspiration pneumonitis Cardio planning cardiac cath on Saturday Currently on Hep drip due to NSTEMI No complications regarding cholecystectomy Medical management as per ICU team Will follow D/w Dr. Forrest Urbina PGY3 <Wei Clayton - Last Filed: 09/25/17 16:28> Results - Vital Signs Recent Vital Signs: Last Vital Signs Temp 97.5 F L 09/24/17 07:00 Pulse 80 09/24/17 07:15 Resp 20 09/24/17 07:00 BP 128/86 09/24/17 09:31 Pulse Ox 98 09/24/17 07:00 - Labs Result Diagrams: 09/24/17 07:02 09/24/17 07:02 Attending/Attestation - Attestation I have personally seen and examined this patient.: Yes I have fully participated in the care of the patient.: Yes I have reviewed all pertinent clinical information: Yes Notes (Text): Pt was seen and examined at bedside Agree with above note and assessment Pt with cough and sputum s/p Robotic Cholecystectomy Labs and radiology reviewed Ass: Pneumonia with High troponin Plan: ICU monitoring IV antibiotics Cardiology consult Home meds Plan d.w pt in detail Risk and benefit explained in detail.
--- NOTE | 2017-09-20 18:22 | CARD ---
APPROVED REPORT Date of service: 09/19/2017 EXAM: Two-dimensional and M-mode echocardiogram with Doppler, color Doppler with contrast. Other Information Quality : GoodRhythm : INDICATION Dyspnea Status/Post NM Echo Enhancing Agent Indication: Endocardial border delineation Agent/Amount Used: Definity RISK FACTORS Hypertension Hyperlipidemia 2D DIMENSIONS IVSd1.0 (0.7-1.1cm)LVDd6.2 (3.9-5.9cm) PWd1.0 (0.7-1.1cm)LVDs5.3 (2.5-4.0cm) FS (%) 14.1 %LVEF (%)29.5 (>50%) M-Mode DIMENSIONS RVDd1.73 (2.1-3.2cm)Left Atrium (MM)3.27 (2.5-4.0cm) IVSd0.74 (0.7-1.1cm)Aortic Root3.98 (2.2-3.7cm) LVDd6.97 (4.0-5.6cm)Aortic Cusp Exc.2.33 (1.5-2.0cm) PWd0.62 (0.7-1.1cm)FS (%) 22 % LVDs5.44 (2.0-3.8cm)LVEF (%)30 (>50%) Mitral Valve MV E Qjcaytbo11.5cm/sMV A Sycfntja69.1cm/sE/A ratio2.6 TDI E/Lateral E'0.0E/Medial E'0.0 Tricuspid Valve TR Peak [id number]/sTR Peak Gr.[id number] LEFT VENTRICLE The Left Ventricle is mildly dilated. There is normal left ventricular wall thickness. The systolic function is moderately to severely impaired. AORTIC VALVE There is trace aortic regurgitation. MITRAL VALVE Mitral regurgitation is trace. TRICUSPID VALVE There is mild to moderate tricuspid regurgitation. <Conclusion> Moderate to severe LV systolic dysfunction. Dilated LV. Trace AR. Trace MR. Midl to moderete TR.
--- NOTE | 2017-09-20 20:46 | CARD ---
APPROVED REPORT Date of service: 09/19/2017 EKG Measurement Heart [id number] ID [id number] <Conclusion> Normal sinus rhythm Left anterior fascicular block T wave abnormality, consider inferolateral ischemia Prolonged QT Abnormal ECG
--- NOTE | 2017-09-20 20:49 | CARD ---
APPROVED REPORT Date of service: 09/19/2017 EKG Measurement Heart [id number] <Conclusion> Normal sinus rhythm Left anterior fascicular block T wave abnormality, consider lateral ischemia Prolonged QT Abnormal ECG
--- NOTE | 2017-09-20 20:55 | CARD ---
APPROVED REPORT Date of service: 09/19/2017 EKG Measurement Heart [id number] <Conclusion> Normal sinus rhythm Left anterior fascicular block T wave abnormality, consider lateral ischemia Prolonged QT Abnormal ECG
--- NOTE | 2017-09-20 20:58 | CARD ---
APPROVED REPORT Date of service: 09/19/2017 EKG Measurement Heart [id number] <Conclusion> Normal sinus rhythm Possible Left atrial enlargement Pulmonary disease pattern Left anterior fascicular block Nonspecific T wave abnormality Prolonged QT Abnormal ECG
[2017-09-20] MEDS: Heparin25000 units/250ml 1/2NS 25,000 UNITS/250 ML BAG IV PRN (21:49)
--- NOTE | 2017-09-20 22:56 | CP.PCM.HP ---
History of Present Illness - History of Present Illness History of Present Illness: CC shortness of breath HPI: 52-year-old male on Methadone with history of depression, hepatitis C, chronic arrhythmias status post robotic cholecystectomy Saturday presented to emergency room complaining of shortness of breath, cough with blood -tinged sputum. I saw the patient in the with at bedside in the emergency room. The patient denied any chest pain but admits to shortness of breat with diaphoresis. The patient was placed on 100% nonrebreather mask for hypoxemia and left lung pneumonia. Patient also found to have elevated troponin= 4.0. Present on Admission - Present on Admission Any Indicators Present on Admission: No Review of Systems - Constitutional Constitutional: Excessive Sweating - Cardiovascular Cardiovascular: Dyspnea on Exertion - Respiratory Respiratory: Cough, Excessive Mucous Production, Change in Mucous Color - Gastrointestinal Gastrointestinal: absent: Abdominal Pain, Diarrhea - Musculoskeletal Musculoskeletal: absent: Myalgias - Psychiatric Psychiatric: absent: Confusion, Suicidal Ideation Past Patient History - Past Medical History & Family History Past Medical History?: Yes - Past Social History Smoking Status: Former Smoker - CARDIAC Hx Cardia Arrhythmia: Yes Hx Hypercholesterolemia: Yes Hx Hypertension: Yes - HEENT Hx HEENT Problems: No - RENAL Hx Chronic Kidney Disease: No - HEMATOLOGICAL/ONCOLOGICAL Hx Blood Disorders: Yes Hx Hepatitis C: Yes ([place] AND NEGATIVE NOW) - INTEGUMENTARY Hx Dermatological Problems: Yes Hx Psoriasis: Yes (ON STEROID TREATMENT PRN) - MUSCULOSKELETAL/RHEUMATOLOGICAL Hx Arthritis: Yes Hx Falls: No Hx Fractures: No - GASTROINTESTINAL Hx Gall Bladder Disease: Yes (GB removed) - GENITOURINARY/GYNECOLOGICAL Hx Genitourinary Disorders: Yes Hx Prostate Problems: Yes (BPH) Other/Comment: ERECTILE DYSFUNCTION - PSYCHIATRIC Hx Depression: Yes 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) - SURGICAL HISTORY Hx Appendectomy: Yes Hx Cholecystectomy: Yes - ANESTHESIA Hx Anesthesia: Yes Hx Anesthesia Reactions: No Hx Malignant Hyperthermia: No Meds Allergies/Adverse Reactions: Allergies Allergy/AdvReac Type Severity Reaction Status Date / Time No Known Allergies Allergy Verified 09/19/17 07:44 Physical Exam - Constitutional Appears: Agitated - Head Exam Head Exam: NORMAL INSPECTION - Eye Exam Eye Exam: absent: Scleral icterus - ENT Exam ENT Exam: Mucous Membranes Moist - Neck Exam Neck exam: Positive for: Full Rom. Negative for: Lymphadenopathy - Respiratory Exam Respiratory Exam: Clear to Auscultation Bilateral - Cardiovascular Exam Cardiovascular Exam: REGULAR RHYTHM - GI/Abdominal Exam GI & Abdominal Exam: Normal Bowel Sounds, Soft. absent: Tenderness - Extremities Exam Extremities exam: Negative for: calf tenderness, pedal edema, tenderness - Neurological Exam Neurological exam: Alert, Oriented x3 - Skin Skin Exam: Dry, Normal Color Results - Vital Signs Recent Vital Signs: Last Vital Signs Temp 98.2 F 09/20/17 16:00 Pulse 56 L 09/20/17 19:35 Resp 12 09/20/17 19:35 BP 119/85 09/20/17 19:35 Pulse Ox 98 09/20/17 08:00 - Labs Result Diagrams: 09/20/17 06:24 09/20/17 06:24 Labs: Laboratory Results - last 24 hr 09/19/17 09/19/17 09/20/17 22:43 22:43 06:24 WBC 14.7 H RBC 4.66 Hgb 14.1 Hct 41.7 MCV 89.3 MCH 30.3 MCHC 33.9 RDW 14.0 Plt Count 226 MPV 9.5 Neut % (Auto) 76.1 H Lymph % (Auto) 17.8 L Carver % (Auto) 5.8 Eos % (Auto) 0.0 Baso % (Auto) 0.3 Neut # (Auto) 11.2 H Lymph # (Auto) 2.6 Carver # (Auto) 0.8 Eos # (Auto) 0.0 Baso # (Auto) 0.0 APTT 64 H Sodium Potassium Chloride Carbon Dioxide Anion Gap BUN Creatinine Est GFR ( Amer) Est GFR (Non-Af Amer) Random Glucose Hemoglobin A1c Calcium Phosphorus Magnesium Total Bilirubin AST ALT Alkaline Phosphatase Total Creatine Kinase 197 H CK-MB (Mass) 12.1 H Troponin I 3.2100 H* Total Protein Albumin Globulin Albumin/Globulin Ratio Triglycerides Cholesterol LDL Cholesterol Direct HDL Cholesterol Urine Color Urine Clarity Urine pH Ur Specific Otto Urine Protein Urine Glucose (UA) Urine Ketones Urine Blood Urine Nitrate Urine Bilirubin Urine Urobilinogen Ur Leukocyte Esterase Urine WBC (Auto) Urine RBC (Auto) Ur Squamous Epith Cells Urine Bacteria Hep Bs Antigen HIV 1&2 Antibody Screen 09/20/17 09/20/17 09/20/17 06:24 06:24 06:24 WBC RBC Hgb Hct MCV MCH MCHC RDW Plt Count MPV Neut % (Auto) Lymph % (Auto) Carver % (Auto) Eos % (Auto) Baso % (Auto) Neut # (Auto) Lymph # (Auto) Carver # (Auto) Eos # (Auto) Baso # (Auto) APTT Sodium 139 Potassium 3.9 Chloride 101 Carbon Dioxide 28 Anion Gap 13 BUN 12 Creatinine 0.7 L Est GFR ( Amer) > 60 Est GFR (Non-Af Amer) > 60 Random Glucose 115 H Hemoglobin A1c 5.9 Calcium 9.2 Phosphorus 2.9 Magnesium 1.8 Total Bilirubin 0.7 AST 62 H ALT 44 Alkaline Phosphatase 88 Total Creatine Kinase CK-MB (Mass) Troponin I Total Protein 7.1 Albumin 4.3 Globulin 2.8 Albumin/Globulin Ratio 1.6 Triglycerides 111 D Cholesterol 168 LDL Cholesterol Direct 88 HDL Cholesterol 41 Urine Color Urine Clarity Urine pH Ur Specific Otto Urine Protein Urine Glucose (UA) Urine Ketones Urine Blood Urine Nitrate Urine Bilirubin Urine Urobilinogen Ur Leukocyte Esterase Urine WBC (Auto) Urine RBC (Auto) Ur Squamous Epith Cells Urine Bacteria Hep Bs Antigen Negative HIV 1&2 Antibody Screen Negative 09/20/17 09/20/17 06:24 07:29 WBC RBC Hgb Hct MCV MCH MCHC RDW Plt Count MPV Neut % (Auto) Lymph % (Auto) Carver % (Auto) Eos % (Auto) Baso % (Auto) Neut # (Auto) Lymph # (Auto) Carver # (Auto) Eos # (Auto) Baso # (Auto) APTT 54 H D Sodium Potassium Chloride Carbon Dioxide Anion Gap BUN Creatinine Est GFR ( Amer) Est GFR (Non-Af Amer) Random Glucose Hemoglobin A1c Calcium Phosphorus Magnesium Total Bilirubin AST ALT Alkaline Phosphatase Total Creatine Kinase CK-MB (Mass) Troponin I Total Protein Albumin Globulin Albumin/Globulin Ratio Triglycerides Cholesterol LDL Cholesterol Direct HDL Cholesterol Urine Color Yellow Urine Clarity Hazy Urine pH 5.0 Ur Specific Otto 1.032 H Urine Protein Negative Urine Glucose (UA) Normal Urine Ketones Trace Urine Blood Negative Urine Nitrate Negative Urine Bilirubin Negative Urine Urobilinogen Normal Ur Leukocyte Esterase Neg Urine WBC (Auto) 1 Urine RBC (Auto) 4 H Ur Squamous Epith Cells < 1 Urine Bacteria Rare Hep Bs Antigen HIV 1&2 Antibody Screen Assessment & Plan - Assessment and Plan (Free Text) Assessment: Pneumonia w/ hypoxemia Hx of drug abuse on Methadone Plan: Septic work up Abtx as per ID Pulmonary consult with Dr Colunga - Date & Time Date: 09/19/17 Time: 11:00
--- NOTE | 2017-09-20 23:13 | CP.PCM.PN ---
Subjective - Date & Time of Evaluation Date of Evaluation: 09/20/17 Time of Evaluation: 08:30 - Subjective Subjective: breathing better no chest pain trops-trending down pro-bnp = 7700 Objective - Vital Signs/Intake and Output Vital Signs (last 24 hours): Temp Pulse Resp BP Pulse Ox 98.2 F 56 L 12 119/85 98 09/20/17 16:00 09/20/17 19:35 09/20/17 19:35 09/20/17 19:35 09/20/17 08:00 Intake and Output: 09/20/17 09/21/17 18:59 06:59 Intake Total 1057.4 336 Balance 1057.4 336 - Medications Medications: Current Medications Albuterol/Ipratropium (Duoneb 3 Mg/0.5 Mg (3 Ml) Ud) 3 ml INH RQ6 [facility] Last Admin: 09/20/17 20:10 Dose: 3 ml Aspirin (Aspirin Chewable) 81 mg PO DAILY [facility] Last Admin: 09/20/17 09:28 Dose: 81 mg Furosemide (Lasix) 40 mg IVP DAILY [facility] Guaifenesin (Mucinex La) 600 mg PO BID [facility] Last Admin: 09/20/17 17:00 Dose: 600 mg Lactated Ringer's (Lactated Ringer's) 1,000 mls @ 75 mls/hr IV .[id number] [facility] Last Admin: 09/20/17 21:47 Dose: 75 mls/hr Piperacillin Sod/Tazobactam Sod (Zosyn 3.375 Gm Iv Premix) 3.375 gm in 50 mls @ 100 mls/hr IVPB Q6H [facility] PRN Reason: Protocol Last Admin: 09/20/17 18:00 Dose: 100 mls/hr Vancomycin/Sodium Chloride (Vancomycin 1 Gm/Ns 200 Ml) 1 gm in 200 mls @ 166.6 mls/hr IVPB Q12H [facility] PRN Reason: Protocol Stop: 09/24/17 22:01 Last Admin: 09/20/17 21:47 Dose: 166.6 mls/hr Heparin Sodium/Sodium Chloride (Heparin 13522 Units/250ml 1/2 Normal Saline) 25 ,000 units in 250 mls @ 10.886 mls/hr IV .[id number] PRN; Protocol; 12 U/KG/HR PRN Reason: PROTOCOL Last Admin: 09/20/17 21:49 Dose: 12 u/kg/hr, 10.886 mls/hr Methadone HCl (Methadose) 80 mg PO DAILY [facility] Methadone HCl (Methadone) 30 mg PO DAILY [facility] Ondansetron HCl (Zofran Inj) 4 mg IVP Q8H PRN PRN Reason: Nausea/Vomiting Last Admin: 09/20/17 01:18 Dose: 4 mg Pneumococcal Polyvalent Vaccine (Pneumovax 23 Vaccine) 0.5 ml SC .ONCE ONE Stop: 09/21/17 10:01 Ranolazine (Ranexa) 500 mg PO BID [facility] Rosuvastatin Calcium (Crestor) 5 mg PO HS [facility] Last Admin: 09/20/17 21:48 Dose: 5 mg Sacubitril/Valsartan (Entresto 24 Mg-26 Mg) 1 tab PO BID [facility] - Labs Labs: 09/20/17 06:24 09/20/17 06:24 PT 12.9 SECONDS (9.7-12.2) H 09/19/17 08:29 INR 1.2 09/19/17 08:29 APTT 54 SECONDS (21-34) H D 09/20/17 06:24 - Constitutional Appears: Non-toxic - Head Exam Head Exam: NORMAL INSPECTION - Eye Exam Eye Exam: absent: Scleral icterus - ENT Exam ENT Exam: Mucous Membranes Moist - Neck Exam Neck Exam: Full ROM - Respiratory Exam Respiratory Exam: Clear to Ausculation Bilateral - Cardiovascular Exam Cardiovascular Exam: REGULAR RHYTHM - GI/Abdominal Exam GI & Abdominal Exam: Soft - Extremities Exam Extremities Exam: absent: Calf Tenderness, Pedal Edema - Neurological Exam Neurological Exam: Alert, Oriented x3 Assessment and Plan - Assessment and Plan (Free Text) Assessment: CHF NSTEMI Pneumonia Sinus bradycardia Recent pavel-lap Plan: Cont abtx Lasix, entresto,Ranexa ECHO-noted [facility] by [facility]OLL Cardiac cath
[2017-09-21] MEDS: Piperacill/Tazo 3.375gm in Dex 3.375 GM/50 ML BAG IVPB SCH ×4 (00:46→18:28)
[2017-09-21 06:46] LABS: BASO % 0.5 % (0.0-2.0); EOS % 0.8 % (0.0-4.0); LYMPH # 1.5 K/uL (1.0-4.3); LYMPH % 29.4 % (20.0-40.0); MEAN CELL VOLUME 88.7 fL (80.0-94.0); MEAN CORPUSCULAR HEMOGLOBIN 30.3 pg (27.0-31.0); MEAN CORPUSCULAR HGB CONC 34.2 g/dL (33.0-37.0); MEAN PLATELET VOLUME 8.9 fL (7.2-11.7); MONO # 0.4 K/uL (0.0-0.8); MONO % 7.5 % (0.0-10.0); NEUT # 3.3 K/uL (1.8-7.0); NEUT % 61.8 % (50.0-75.0); RBC 3.97 Mil/uL (4.40-5.90); RED CELL DISTRIBUTION WIDTH 13.9 % (11.5-14.5); WHITE BLOOD COUNT 5.3 K/uL (4.8-10.8)
[2017-09-21] MEDS: Lactated Ringer's 1,000 ML IV SCH ×2 (06:58→19:50)
[2017-09-21 07:07] LABS: ALB/GLOB RATIO 1.4 (1.0-2.1); ALBUMIN 3.5 g/dL (3.5-5.0); ALT/SGPT 92 U/L (21-72); AST/SGOT 99 U/L (17-59); BLOOD UREA NITROGEN 10 mg/dL (9-20); GFR AFRICAN-AMERICAN > 60; GFR NON-AFRICAN AMERICAN > 60
[2017-09-21] MEDS: Albuterol-Ipratrop 3 mg / 0.5 (3 ml) UD INH SCH ×3 (07:54→19:40)
--- NOTE | 2017-09-21 08:26 | CP.PCM.PN ---
<Janeth Patel - Last Filed: 09/21/17 08:27> Subjective - Date & Time of Evaluation Date of Evaluation: 09/21/17 Time of Evaluation: 07:30 - Subjective Subjective: general surgery progress note for Dr. Clayton patient seen and examinde this am at bedside. No at eovernight events per nursing. Patient denies chest pain, SOB, abdominal pain, f/c/n/v. Objective - Vital Signs/Intake and Output Vital Signs (last 24 hours): Temp Pulse Resp BP Pulse Ox 98.6 F 60 20 140/78 97 09/21/17 07:00 09/21/17 07:00 09/21/17 07:00 09/21/17 07:00 09/21/17 07:00 Intake and Output: 09/21/17 09/21/17 06:59 18:59 Intake Total 336 Balance 336 - Medications Medications: Current Medications Albuterol/Ipratropium (Duoneb 3 Mg/0.5 Mg (3 Ml) Ud) 3 ml INH RQ6 [facility] Last Admin: 09/21/17 07:54 Dose: 3 ml Aspirin (Aspirin Chewable) 81 mg PO DAILY [facility] Last Admin: 09/20/17 09:28 Dose: 81 mg Furosemide (Lasix) 40 mg IVP DAILY [facility] Guaifenesin (Mucinex La) 600 mg PO BID [facility] Last Admin: 09/20/17 17:00 Dose: 600 mg Lactated Ringer's (Lactated Ringer's) 1,000 mls @ 75 mls/hr IV .[id number] [facility] Last Admin: 09/21/17 06:58 Dose: Not Given Piperacillin Sod/Tazobactam Sod (Zosyn 3.375 Gm Iv Premix) 3.375 gm in 50 mls @ 100 mls/hr IVPB Q6H [facility] PRN Reason: Protocol Last Admin: 09/21/17 05:48 Dose: 100 mls/hr Vancomycin/Sodium Chloride (Vancomycin 1 Gm/Ns 200 Ml) 1 gm in 200 mls @ 166.6 mls/hr IVPB Q12H [facility] PRN Reason: Protocol Stop: 09/24/17 22:01 Last Admin: 09/20/17 21:47 Dose: 166.6 mls/hr Heparin Sodium/Sodium Chloride (Heparin 77669 Units/250ml 1/2 Normal Saline) 25 ,000 units in 250 mls @ 10.886 mls/hr IV .[id number] PRN; Protocol; 12 U/KG/HR PRN Reason: PROTOCOL Last Admin: 09/20/17 21:49 Dose: 12 u/kg/hr, 10.886 mls/hr Methadone HCl (Methadose) 80 mg PO DAILY [facility] Methadone HCl (Methadone) 30 mg PO DAILY [facility] Ondansetron HCl (Zofran Inj) 4 mg IVP Q8H PRN PRN Reason: Nausea/Vomiting Last Admin: 09/20/17 01:18 Dose: 4 mg Pneumococcal Polyvalent Vaccine (Pneumovax 23 Vaccine) 0.5 ml SC .ONCE ONE Stop: 09/21/17 10:01 Ranolazine (Ranexa) 500 mg PO BID [facility] Rosuvastatin Calcium (Crestor) 5 mg PO HS [facility] Last Admin: 09/20/17 21:48 Dose: 5 mg Sacubitril/Valsartan (Entresto 24 Mg-26 Mg) 1 tab PO BID [facility] - Labs Labs: 09/21/17 06:39 09/21/17 06:39 PT 12.9 SECONDS (9.7-12.2) H 09/19/17 08:29 INR 1.2 09/19/17 08:29 APTT 54 SECONDS (21-34) H D 09/20/17 06:24 - Constitutional Appears: Well, Non-toxic, No Acute Distress - Head Exam Head Exam: ATRAUMATIC, NORMOCEPHALIC - Eye Exam Eye Exam: Normal appearance - ENT Exam ENT Exam: Mucous Membranes Moist - Respiratory Exam Respiratory Exam: NORMAL BREATHING PATTERN - GI/Abdominal Exam GI & Abdominal Exam: Soft. absent: Distended, Firm, Guarding, Rigid, Tenderness Additional comments: post operative dressings in place - Psychiatric Exam Psychiatric exam: Normal Affect, Normal Mood - Skin Skin Exam: Dry, Intact, Normal Color, Warm Assessment and Plan - Assessment and Plan (Free Text) Assessment: 52 yr old male POD 3 s/p Lap cholecystectomy Plan: - dressings are intact, no evidence of complication from cholecystectomy - medical management per primary team - will continue to follow - d/w Dr Forrest Patel, PGY 1 <Wei Clayton - Last Filed: 09/25/17 16:33> Objective - Vital Signs/Intake and Output Vital Signs (last 24 hours): Temp Pulse Resp BP Pulse Ox 97.5 F L 80 20 128/86 98 09/24/17 07:00 09/24/17 07:15 09/24/17 07:00 09/24/17 09:31 09/24/17 07:00 - Labs Labs: 09/24/17 07:02 09/24/17 07:02 PT 12.9 SECONDS (9.7-12.2) H 09/19/17 08:29 INR 1.2 09/19/17 08:29 APTT 36 SECONDS (21-34) H D 09/23/17 07:03 Attending/Attestation - Attestation I have personally seen and examined this patient.: Yes I have fully participated in the care of the patient.: Yes I have reviewed all pertinent clinical information, including history, physical exam and plan: Yes Notes (Text): Pt was seen and examined at bedside Agree with above note and assessment Pt is doing well No SOB and chest pain Cardiology consult appreciated Possible Cath on saturday Plan d.w pt in detail Risk and benefit explained in detail.
[2017-09-21] MEDS: Methadone 40 mg Tab PO SCH (09:08)
[2017-09-21] MEDS: Sacubitril/Valsartan 24-26mg Tab PO SCH ×2 (09:13→18:19)
[2017-09-21] MEDS: guaiFENesin 600 mg ER Tab PO SCH ×2 (09:13→18:20)
[2017-09-21] MEDS: Ranolazine 500 mg Extended Release Tablets PO SCH ×3 (09:16→21:37)
[2017-09-21] MEDS: Vancomycin 1 gm/NS 200 ml 1 GM/200 ML BAG IVPB SCH ×2 (09:17→21:24)
[2017-09-21] MEDS ORDERED: Methadone 40 mg Tab PO SCH (10:00)
[2017-09-21] MEDS ORDERED: Pneumococcal 23-Valent Vaccine SC ONE (10:00)
--- NOTE | 2017-09-21 14:39 | CP.PCM.PN ---
Subjective - Date & Time of Evaluation Date of Evaluation: 09/21/17 Time of Evaluation: 13:00 - Subjective Subjective: patient seen and examined Cough and shortness of breath improving Afebrile Denies any chest pain Objective - Vital Signs/Intake and Output Vital Signs (last 24 hours): Temp Pulse Resp BP Pulse Ox 98.6 F 60 20 140/78 97 09/21/17 07:00 09/21/17 09:00 09/21/17 07:00 09/21/17 09:12 09/21/17 07:00 Intake and Output: 09/21/17 09/21/17 06:59 18:59 Intake Total 336 Balance 336 - Medications Medications: Current Medications Albuterol/Ipratropium (Duoneb 3 Mg/0.5 Mg (3 Ml) Ud) 3 ml INH RQ6 [facility] Last Admin: 09/21/17 13:26 Dose: 3 ml Aspirin (Aspirin Chewable) 81 mg PO DAILY [facility] Last Admin: 09/21/17 09:12 Dose: 81 mg Furosemide (Lasix) 40 mg IVP DAILY [facility] Last Admin: 09/21/17 09:12 Dose: 40 mg Guaifenesin (Mucinex La) 600 mg PO BID [facility] Last Admin: 09/21/17 09:13 Dose: 600 mg Lactated Ringer's (Lactated Ringer's) 1,000 mls @ 75 mls/hr IV .[id number] [facility] Last Admin: 09/21/17 06:58 Dose: Not Given Piperacillin Sod/Tazobactam Sod (Zosyn 3.375 Gm Iv Premix) 3.375 gm in 50 mls @ 100 mls/hr IVPB Q6H [facility] PRN Reason: Protocol Last Admin: 09/21/17 12:30 Dose: 100 mls/hr Vancomycin/Sodium Chloride (Vancomycin 1 Gm/Ns 200 Ml) 1 gm in 200 mls @ 166.6 mls/hr IVPB Q12H [facility] PRN Reason: Protocol Stop: 09/24/17 22:01 Last Admin: 09/21/17 09:17 Dose: 166.6 mls/hr Heparin Sodium/Sodium Chloride (Heparin 20253 Units/250ml 1/2 Normal Saline) 25 ,000 units in 250 mls @ 10.886 mls/hr IV .[id number] PRN; Protocol; 12 U/KG/HR PRN Reason: PROTOCOL Last Admin: 09/20/17 21:49 Dose: 12 u/kg/hr, 10.886 mls/hr Methadone HCl (Methadone) 30 mg PO DAILY@0900 [facility] Last Admin: 09/21/17 09:08 Dose: 30 mg Methadone HCl (Methadose) 80 mg PO DAILY@0900 [facility] Last Admin: 09/21/17 09:08 Dose: 80 mg Ondansetron HCl (Zofran Inj) 4 mg IVP Q8H PRN PRN Reason: Nausea/Vomiting Last Admin: 09/20/17 01:18 Dose: 4 mg Ranolazine (Ranexa) 500 mg PO BID [facility] Last Admin: 09/21/17 09:16 Dose: 500 mg Rosuvastatin Calcium (Crestor) 5 mg PO HS [facility] Last Admin: 09/20/17 21:48 Dose: 5 mg Sacubitril/Valsartan (Entresto 24 Mg-26 Mg) 1 tab PO BID [facility] Last Admin: 09/21/17 09:13 Dose: 1 tab - Labs Labs: 09/21/17 06:39 09/21/17 06:39 PT 12.9 SECONDS (9.7-12.2) H 09/19/17 08:29 INR 1.2 09/19/17 08:29 APTT 51 SECONDS (21-34) H 09/21/17 11:56 - Head Exam Head Exam: ATRAUMATIC, NORMOCEPHALIC - ENT Exam ENT Exam: Mucous Membranes Moist - Neck Exam Neck Exam: Normal Inspection - Respiratory Exam Respiratory Exam: Rales - Cardiovascular Exam Cardiovascular Exam: REGULAR RHYTHM - GI/Abdominal Exam GI & Abdominal Exam: Soft, Normal Bowel Sounds Assessment and Plan (1) Pneumonia Assessment & Plan: Continue antibiotics Repeat chest x-ray Possible cardiac catheter on Saturday Nebulizer treatment Methadone Seen by psyc Status: Acute (2) Elevated troponin Status: Acute
[2017-09-21 18:28] VITALS: RESP 20
--- NOTE | 2017-09-21 19:08 | CP.PCM.PN ---
Subjective - Date & Time of Evaluation Date of Evaluation: 09/21/17 Time of Evaluation: 10:00 - Subjective Subjective: less cough less sob alert oriented NAD Objective - Vital Signs/Intake and Output Vital Signs (last 24 hours): Temp Pulse Resp BP Pulse Ox 998.4 F H 55 L 20 110/69 95 09/21/17 18:27 09/21/17 18:27 09/21/17 18:27 09/21/17 18:27 09/21/17 18:27 - Medications Medications: Current Medications Albuterol/Ipratropium (Duoneb 3 Mg/0.5 Mg (3 Ml) Ud) 3 ml INH RQ6 [facility] Last Admin: 09/21/17 13:26 Dose: 3 ml Aspirin (Aspirin Chewable) 81 mg PO DAILY [facility] Last Admin: 09/21/17 09:12 Dose: 81 mg Furosemide (Lasix) 40 mg IVP DAILY [facility] Last Admin: 09/21/17 09:12 Dose: 40 mg Guaifenesin (Mucinex La) 600 mg PO BID [facility] Last Admin: 09/21/17 18:20 Dose: 600 mg Lactated Ringer's (Lactated Ringer's) 1,000 mls @ 75 mls/hr IV .[id number] [facility] Last Admin: 09/21/17 06:58 Dose: Not Given Piperacillin Sod/Tazobactam Sod (Zosyn 3.375 Gm Iv Premix) 3.375 gm in 50 mls @ 100 mls/hr IVPB Q6H [facility] PRN Reason: Protocol Last Admin: 09/21/17 18:28 Dose: 100 mls/hr Vancomycin/Sodium Chloride (Vancomycin 1 Gm/Ns 200 Ml) 1 gm in 200 mls @ 166.6 mls/hr IVPB Q12H [facility] PRN Reason: Protocol Stop: 09/24/17 22:01 Last Admin: 09/21/17 09:17 Dose: 166.6 mls/hr Heparin Sodium/Sodium Chloride (Heparin 19410 Units/250ml 1/2 Normal Saline) 25 ,000 units in 250 mls @ 10.886 mls/hr IV .[id number] PRN; Protocol; 12 U/KG/HR PRN Reason: PROTOCOL Last Admin: 09/20/17 21:49 Dose: 12 u/kg/hr, 10.886 mls/hr Methadone HCl (Methadone) 30 mg PO DAILY@0900 [facility] Last Admin: 09/21/17 09:08 Dose: 30 mg Methadone HCl (Methadose) 80 mg PO DAILY@0900 [facility] Last Admin: 09/21/17 09:08 Dose: 80 mg Ondansetron HCl (Zofran Inj) 4 mg IVP Q8H PRN PRN Reason: Nausea/Vomiting Last Admin: 09/20/17 01:18 Dose: 4 mg Ranolazine (Ranexa) 500 mg PO BID [facility] Last Admin: 09/21/17 18:20 Dose: 500 mg Rosuvastatin Calcium (Crestor) 5 mg PO HS [facility] Last Admin: 09/20/17 21:48 Dose: 5 mg Sacubitril/Valsartan (Entresto 24 Mg-26 Mg) 1 tab PO BID [facility] Last Admin: 09/21/17 18:19 Dose: 1 tab - Labs Labs: 09/21/17 06:39 09/21/17 06:39 PT 12.9 SECONDS (9.7-12.2) H 09/19/17 08:29 INR 1.2 09/19/17 08:29 APTT 51 SECONDS (21-34) H 09/21/17 11:56 - Constitutional Appears: Non-toxic, Chronically Ill - Head Exam Head Exam: NORMOCEPHALIC - Eye Exam Eye Exam: PERRL - ENT Exam ENT Exam: Mucous Membranes Dry - Neck Exam Neck Exam: absent: Lymphadenopathy - Respiratory Exam Respiratory Exam: Decreased Breath Sounds - Cardiovascular Exam Cardiovascular Exam: REGULAR RHYTHM - GI/Abdominal Exam GI & Abdominal Exam: Distended, Soft Assessment and Plan (1) Hypoxia Status: Acute (2) Pneumonia Status: Acute (3) STEMI (ST elevation myocardial infarction) Status: Acute
[2017-09-21] MEDS: Heparin25000 units/250ml 1/2NS 25,000 UNITS/250 ML BAG IV PRN (23:16)
[2017-09-22] MEDS: Piperacill/Tazo 3.375gm in Dex 3.375 GM/50 ML BAG IVPB SCH ×4 (00:12→18:22)
[2017-09-22] MEDS: Albuterol-Ipratrop 3 mg / 0.5 (3 ml) UD INH SCH ×4 (02:30→19:26)
[2017-09-22] MEDS: Lactated Ringer's 1,000 ML IV SCH ×2 (03:31→09:43)
[2017-09-22 09:38] LABS: BASO % 0.5 % (0.0-2.0); EOS # 0.1 K/uL (0.0-0.7); EOS % 1.2 % (0.0-4.0); LYMPH # 1.7 K/uL (1.0-4.3); LYMPH % 29.1 % (20.0-40.0); MEAN CELL VOLUME 89.4 fL (80.0-94.0); MEAN CORPUSCULAR HEMOGLOBIN 30.3 pg (27.0-31.0); MEAN CORPUSCULAR HGB CONC 33.9 g/dL (33.0-37.0); MEAN PLATELET VOLUME 9.3 fL (7.2-11.7); MONO # 0.3 K/uL (0.0-0.8); MONO % 5.3 % (0.0-10.0); NEUT # 3.8 K/uL (1.8-7.0); NEUT % 63.9 % (50.0-75.0); NRBC % 0.1 % (0.0-2.0); RBC 4.28 Mil/uL (4.40-5.90); RED CELL DISTRIBUTION WIDTH 14.1 % (11.5-14.5)
[2017-09-22] MEDS: Methadone 40 mg Tab PO SCH (09:41)
[2017-09-22] MEDS: Sacubitril/Valsartan 24-26mg Tab PO SCH ×2 (09:42→18:23)
[2017-09-22] MEDS: guaiFENesin 600 mg ER Tab PO SCH ×2 (09:42→18:22)
[2017-09-22] MEDS: Ranolazine 500 mg Extended Release Tablets PO SCH ×2 (09:42→22:51)
[2017-09-22] MEDS: Vancomycin 1 gm/NS 200 ml 1 GM/200 ML BAG IVPB SCH ×2 (09:45→22:00)
[2017-09-22 10:01] LABS: ALB/GLOB RATIO 1.7 (1.0-2.1); ALBUMIN 4.1 g/dL (3.5-5.0); ALT/SGPT 70 U/L (21-72); AST/SGOT 41 U/L (17-59); BLOOD UREA NITROGEN 7 mg/dL (9-20); CALCIUM 9.1 mg/dl (8.6-10.4); GFR AFRICAN-AMERICAN > 60; GFR NON-AFRICAN AMERICAN > 60
--- NOTE | 2017-09-22 13:55 | CP.PCM.PN ---
<Janeth Patel - Last Filed: 09/22/17 21:27> Subjective - Date & Time of Evaluation Date of Evaluation: 09/22/17 Time of Evaluation: 07:58 - Subjective Subjective: General surgery progress note for Dr. clayton patient seen and examined this am at bedside. No acute events overnight per nursing. Patient has no complaints and denies f/c/n/v/abdominal pain. He is tolerating his diet, passing stool and flatus. Objective - Vital Signs/Intake and Output Vital Signs (last 24 hours): Temp Pulse Resp BP Pulse Ox 99.2 F 68 20 136/88 100 09/22/17 08:00 09/22/17 08:00 09/22/17 08:00 09/22/17 09:42 09/22/17 08:00 Intake and Output: 09/22/17 09/22/17 06:59 18:59 Intake Total 1416.4 Balance 1416.4 - Medications Medications: Current Medications Albuterol/Ipratropium (Duoneb 3 Mg/0.5 Mg (3 Ml) Ud) 3 ml INH RQ6 [facility] Last Admin: 09/22/17 13:23 Dose: 3 ml Aspirin (Aspirin Chewable) 81 mg PO DAILY [facility] Last Admin: 09/22/17 09:42 Dose: 81 mg Furosemide (Lasix) 40 mg IVP DAILY [facility] Last Admin: 09/22/17 09:42 Dose: 40 mg Guaifenesin (Mucinex La) 600 mg PO BID [facility] Last Admin: 09/22/17 09:42 Dose: 600 mg Lactated Ringer's (Lactated Ringer's) 1,000 mls @ 75 mls/hr IV .[id number] [facility] Last Admin: 09/22/17 09:43 Dose: 75 mls/hr Piperacillin Sod/Tazobactam Sod (Zosyn 3.375 Gm Iv Premix) 3.375 gm in 50 mls @ 100 mls/hr IVPB Q6H [facility] PRN Reason: Protocol Last Admin: 09/22/17 12:25 Dose: 100 mls/hr Vancomycin/Sodium Chloride (Vancomycin 1 Gm/Ns 200 Ml) 1 gm in 200 mls @ 166.6 mls/hr IVPB Q12H [facility] PRN Reason: Protocol Stop: 09/24/17 22:01 Last Admin: 09/22/17 09:45 Dose: 166.6 mls/hr Heparin Sodium/Sodium Chloride (Heparin 33508 Units/250ml 1/2 Normal Saline) 25 ,000 units in 250 mls @ 10.886 mls/hr IV .[id number] PRN; Protocol; 12 U/KG/HR PRN Reason: PROTOCOL Last Admin: 09/21/17 23:16 Dose: 12 u/kg/hr, 10.886 mls/hr Methadone HCl (Methadone) 30 mg PO DAILY@0900 [facility] Last Admin: 09/22/17 09:41 Dose: 30 mg Methadone HCl (Methadose) 80 mg PO DAILY@0900 [facility] Last Admin: 09/22/17 09:41 Dose: 80 mg Ondansetron HCl (Zofran Inj) 4 mg IVP Q8H PRN PRN Reason: Nausea/Vomiting Last Admin: 09/20/17 01:18 Dose: 4 mg Ranolazine (Ranexa) 500 mg PO BID [facility] Last Admin: 09/22/17 09:42 Dose: 500 mg Rosuvastatin Calcium (Crestor) 5 mg PO [facility] Last Admin: 09/21/17 21:35 Dose: 5 mg Sacubitril/Valsartan (Entresto 24 Mg-26 Mg) 1 tab PO BID [facility] Last Admin: 09/22/17 09:42 Dose: 1 tab - Labs Labs: 09/22/17 09:31 09/22/17 09:31 PT 12.9 SECONDS (9.7-12.2) H 09/19/17 08:29 INR 1.2 09/19/17 08:29 APTT 69 SECONDS (21-34) H D 09/22/17 09:31 - Constitutional Appears: Well, Non-toxic, No Acute Distress - Head Exam Head Exam: ATRAUMATIC, NORMOCEPHALIC - ENT Exam ENT Exam: Mucous Membranes Moist - Respiratory Exam Respiratory Exam: NORMAL BREATHING PATTERN - Cardiovascular Exam Cardiovascular Exam: +S1, +S2 - GI/Abdominal Exam GI & Abdominal Exam: Soft. absent: Distended, Guarding, Rigid, Tenderness, Rebound Additional comments: incisions cdi - Extremities Exam Extremities Exam: absent: Calf Tenderness, Pedal Edema - Neurological Exam Neurological Exam: Alert, Awake, Oriented x3 - Psychiatric Exam Psychiatric exam: Normal Affect, Normal Mood - Skin Skin Exam: Dry, Intact, Normal Color, Warm Assessment and Plan - Assessment and Plan (Free Text) Assessment: 52 yr old male POD 4 s/p lap cholecystectomy Plan: - patient to go for cardiac cath tomorrow morning - dressings are intact, may remove tomorrow, no evidence of complication from cholecystectomy - medical management per primary team - will continue to follow - will d/w Dr Clayton, all further recs per him Janeth Patel, PGY 1 <Wei Clayton - Last Filed: 09/25/17 16:41> Objective - Vital Signs/Intake and Output Vital Signs (last 24 hours): Temp Pulse Resp BP Pulse Ox 97.5 F L 80 20 128/86 98 09/24/17 07:00 09/24/17 07:15 09/24/17 07:00 09/24/17 09:31 09/24/17 07:00 - Labs Labs: 09/24/17 07:02 09/24/17 07:02 PT 12.9 SECONDS (9.7-12.2) H 09/19/17 08:29 INR 1.2 09/19/17 08:29 APTT 36 SECONDS (21-34) H D 09/23/17 07:03 Attending/Attestation - Attestation I have personally seen and examined this patient.: Yes I have fully participated in the care of the patient.: Yes I have reviewed all pertinent clinical information, including history, physical exam and plan: Yes Notes (Text): Pt was seen and examined at bedside Agree with above note and assessment Pt is improving clinically Cardiac cath tomorrow C.w current mx Plan d.w pt in detail
--- NOTE | 2017-09-22 14:19 | CP.PCM.PN ---
Subjective - Date & Time of Evaluation Date of Evaluation: 09/22/17 Time of Evaluation: 13:00 - Subjective Subjective: the patient seen and examined Denies chest pain, denies cough, denies fever chills Pneumonia resolving Possible cardiac catheter tomorrow continue antibiotics Continue nebulizer treatment Objective - Vital Signs/Intake and Output Vital Signs (last 24 hours): Temp Pulse Resp BP Pulse Ox 99.2 F 68 20 136/88 100 09/22/17 08:00 09/22/17 08:00 09/22/17 08:00 09/22/17 09:42 09/22/17 08:00 Intake and Output: 09/22/17 09/22/17 06:59 18:59 Intake Total 1416.4 Balance 1416.4 - Medications Medications: Current Medications Albuterol/Ipratropium (Duoneb 3 Mg/0.5 Mg (3 Ml) Ud) 3 ml INH RQ6 [facility] Last Admin: 09/22/17 13:23 Dose: 3 ml Aspirin (Aspirin Chewable) 81 mg PO DAILY [facility] Last Admin: 09/22/17 09:42 Dose: 81 mg Furosemide (Lasix) 40 mg IVP DAILY [facility] Last Admin: 09/22/17 09:42 Dose: 40 mg Guaifenesin (Mucinex La) 600 mg PO BID [facility] Last Admin: 09/22/17 09:42 Dose: 600 mg Lactated Ringer's (Lactated Ringer's) 1,000 mls @ 75 mls/hr IV .[id number] [facility] Last Admin: 09/22/17 09:43 Dose: 75 mls/hr Piperacillin Sod/Tazobactam Sod (Zosyn 3.375 Gm Iv Premix) 3.375 gm in 50 mls @ 100 mls/hr IVPB Q6H [facility] PRN Reason: Protocol Last Admin: 09/22/17 12:25 Dose: 100 mls/hr Vancomycin/Sodium Chloride (Vancomycin 1 Gm/Ns 200 Ml) 1 gm in 200 mls @ 166.6 mls/hr IVPB Q12H [facility] PRN Reason: Protocol Stop: 09/24/17 22:01 Last Admin: 09/22/17 09:45 Dose: 166.6 mls/hr Heparin Sodium/Sodium Chloride (Heparin 94757 Units/250ml 1/2 Normal Saline) 25 ,000 units in 250 mls @ 10.886 mls/hr IV .[id number] PRN; Protocol; 12 U/KG/HR PRN Reason: PROTOCOL Last Admin: 09/21/17 23:16 Dose: 12 u/kg/hr, 10.886 mls/hr Methadone HCl (Methadone) 30 mg PO DAILY@0900 [facility] Last Admin: 09/22/17 09:41 Dose: 30 mg Methadone HCl (Methadose) 80 mg PO DAILY@0900 [facility] Last Admin: 09/22/17 09:41 Dose: 80 mg Ondansetron HCl (Zofran Inj) 4 mg IVP Q8H PRN PRN Reason: Nausea/Vomiting Last Admin: 09/20/17 01:18 Dose: 4 mg Ranolazine (Ranexa) 500 mg PO BID [facility] Last Admin: 09/22/17 09:42 Dose: 500 mg Rosuvastatin Calcium (Crestor) 5 mg PO HS [facility] Last Admin: 09/21/17 21:35 Dose: 5 mg Sacubitril/Valsartan (Entresto 24 Mg-26 Mg) 1 tab PO BID [facility] Last Admin: 09/22/17 09:42 Dose: 1 tab - Labs Labs: 09/22/17 09:31 09/22/17 09:31 PT 12.9 SECONDS (9.7-12.2) H 09/19/17 08:29 INR 1.2 09/19/17 08:29 APTT 69 SECONDS (21-34) H D 09/22/17 09:31 Assessment and Plan (1) Pneumonia Status: Acute (2) Elevated troponin Status: Acute
--- NOTE | 2017-09-22 20:52 | CP.PCM.PN ---
Subjective - Date & Time of Evaluation Date of Evaluation: 09/22/17 Time of Evaluation: 20:49 - Subjective Subjective: no chest pain no sob no fever Objective - Vital Signs/Intake and Output Vital Signs (last 24 hours): Temp Pulse Resp BP Pulse Ox 97.8 F 53 L 20 115/79 98 09/22/17 16:00 09/22/17 16:00 09/22/17 16:00 09/22/17 16:00 09/22/17 16:00 - Medications Medications: Current Medications Albuterol/Ipratropium (Duoneb 3 Mg/0.5 Mg (3 Ml) Ud) 3 ml INH RQ6 [facility] Last Admin: 09/22/17 19:26 Dose: 3 ml Aspirin (Aspirin Chewable) 81 mg PO DAILY [facility] Last Admin: 09/22/17 09:42 Dose: 81 mg Furosemide (Lasix) 40 mg IVP DAILY [facility] Last Admin: 09/22/17 09:42 Dose: 40 mg Guaifenesin (Mucinex La) 600 mg PO BID [facility] Last Admin: 09/22/17 18:22 Dose: 600 mg Piperacillin Sod/Tazobactam Sod (Zosyn 3.375 Gm Iv Premix) 3.375 gm in 50 mls @ 100 mls/hr IVPB Q6H [facility] PRN Reason: Protocol Last Admin: 09/22/17 18:22 Dose: 100 mls/hr Vancomycin/Sodium Chloride (Vancomycin 1 Gm/Ns 200 Ml) 1 gm in 200 mls @ 166.6 mls/hr IVPB Q12H [facility] PRN Reason: Protocol Stop: 09/24/17 22:01 Last Admin: 09/22/17 09:45 Dose: 166.6 mls/hr Methadone HCl (Methadone) 30 mg PO DAILY@0900 [facility] Last Admin: 09/22/17 09:41 Dose: 30 mg Methadone HCl (Methadose) 80 mg PO DAILY@0900 [facility] Last Admin: 09/22/17 09:41 Dose: 80 mg Ondansetron HCl (Zofran Inj) 4 mg IVP Q8H PRN PRN Reason: Nausea/Vomiting Last Admin: 09/20/17 01:18 Dose: 4 mg Ranolazine (Ranexa) 500 mg PO BID [facility] Last Admin: 09/22/17 09:42 Dose: 500 mg Rosuvastatin Calcium (Crestor) 5 mg PO [facility] Last Admin: 09/21/17 21:35 Dose: 5 mg Sacubitril/Valsartan (Entresto 24 Mg-26 Mg) 1 tab PO BID [facility] Last Admin: 09/22/17 18:23 Dose: 1 tab - Labs Labs: 09/22/17 09:31 09/22/17 09:31 PT 12.9 SECONDS (9.7-12.2) H 09/19/17 08:29 INR 1.2 09/19/17 08:29 APTT 69 SECONDS (21-34) H D 09/22/17 09:31 - Constitutional Appears: Non-toxic - Head Exam Head Exam: NORMAL INSPECTION - Eye Exam Eye Exam: absent: Scleral icterus - ENT Exam ENT Exam: Mucous Membranes Moist - Neck Exam Neck Exam: Full ROM - Respiratory Exam Respiratory Exam: Clear to Ausculation Bilateral - Cardiovascular Exam Cardiovascular Exam: REGULAR RHYTHM - GI/Abdominal Exam GI & Abdominal Exam: Soft - Extremities Exam Extremities Exam: absent: Pedal Edema - Neurological Exam Neurological Exam: Alert, Oriented x3 Assessment and Plan - Assessment and Plan (Free Text) Assessment: ACS Pneumonia HTN Plan: Cont abtx Cardiac cath in am Cont meds.
--- NOTE | 2017-09-22 21:11 | CP.PCM.PN ---
Subjective - Date & Time of Evaluation Date of Evaluation: 09/21/17 Time of Evaluation: 10:00 - Subjective Subjective: breathing much better minimal cough afebrile Objective - Vital Signs/Intake and Output Vital Signs (last 24 hours): Temp Pulse Resp BP Pulse Ox 97.8 F 53 L 20 115/79 98 09/22/17 16:00 09/22/17 16:00 09/22/17 16:00 09/22/17 16:00 09/22/17 16:00 - Medications Medications: Current Medications Albuterol/Ipratropium (Duoneb 3 Mg/0.5 Mg (3 Ml) Ud) 3 ml INH RQ6 [facility] Last Admin: 09/22/17 19:26 Dose: 3 ml Aspirin (Aspirin Chewable) 81 mg PO DAILY [facility] Last Admin: 09/22/17 09:42 Dose: 81 mg Furosemide (Lasix) 40 mg IVP DAILY [facility] Last Admin: 09/22/17 09:42 Dose: 40 mg Guaifenesin (Mucinex La) 600 mg PO BID [facility] Last Admin: 09/22/17 18:22 Dose: 600 mg Piperacillin Sod/Tazobactam Sod (Zosyn 3.375 Gm Iv Premix) 3.375 gm in 50 mls @ 100 mls/hr IVPB Q6H [facility] PRN Reason: Protocol Last Admin: 09/22/17 18:22 Dose: 100 mls/hr Vancomycin/Sodium Chloride (Vancomycin 1 Gm/Ns 200 Ml) 1 gm in 200 mls @ 166.6 mls/hr IVPB Q12H [facility] PRN Reason: Protocol Stop: 09/24/17 22:01 Last Admin: 09/22/17 09:45 Dose: 166.6 mls/hr Methadone HCl (Methadone) 30 mg PO DAILY@0900 [facility] Last Admin: 09/22/17 09:41 Dose: 30 mg Methadone HCl (Methadose) 80 mg PO DAILY@0900 [facility] Last Admin: 09/22/17 09:41 Dose: 80 mg Multivitamins (Hexavitamin) 1 tab PO DAILY [facility] Ondansetron HCl (Zofran Inj) 4 mg IVP Q8H PRN PRN Reason: Nausea/Vomiting Last Admin: 09/20/17 01:18 Dose: 4 mg Ranolazine (Ranexa) 500 mg PO BID [facility] Last Admin: 09/22/17 09:42 Dose: 500 mg Rosuvastatin Calcium (Crestor) 5 mg PO HS [facility] Last Admin: 09/21/17 21:35 Dose: 5 mg Sacubitril/Valsartan (Entresto 24 Mg-26 Mg) 1 tab PO BID [facility] Last Admin: 09/22/17 18:23 Dose: 1 tab - Labs Labs: 09/22/17 09:31 09/22/17 09:31 PT 12.9 SECONDS (9.7-12.2) H 09/19/17 08:29 INR 1.2 09/19/17 08:29 APTT 69 SECONDS (21-34) H D 09/22/17 09:31 - Constitutional Appears: Non-toxic - Head Exam Head Exam: NORMAL INSPECTION - Eye Exam Eye Exam: absent: Scleral icterus - Neck Exam Neck Exam: Full ROM - Respiratory Exam Respiratory Exam: Clear to Ausculation Bilateral - Cardiovascular Exam Cardiovascular Exam: REGULAR RHYTHM - GI/Abdominal Exam GI & Abdominal Exam: Soft - Extremities Exam Extremities Exam: absent: Pedal Edema - Neurological Exam Neurological Exam: Alert, Oriented x3 Assessment and Plan - Assessment and Plan (Free Text) Assessment: ACS CHF Pneumonia Dilated cardiomyopathy Plan: Cont abtx Cont diuresis Cont nebulizer tx
[2017-09-22] MEDS ORDERED: Heparin25000 units/250ml 1/2NS 25,000 UNITS/250 ML BAG IV PRN (23:18)
[2017-09-23] MEDS: Piperacill/Tazo 3.375gm in Dex 3.375 GM/50 ML BAG IVPB SCH ×4 (00:24→18:07)
[2017-09-23] MEDS: Albuterol-Ipratrop 3 mg / 0.5 (3 ml) UD INH SCH ×4 (02:30→20:49)
[2017-09-23 07:19] LABS: BASO % 0.6 % (0.0-2.0); EOS # 0.1 K/uL (0.0-0.7); EOS % 1.8 % (0.0-4.0); HEMOGLOBIN 13.3 g/dL (12.0-18.0); LYMPH # 2.1 K/uL (1.0-4.3); MEAN CELL VOLUME 89.5 fL (80.0-94.0); MEAN CORPUSCULAR HEMOGLOBIN 30.7 pg (27.0-31.0); MEAN CORPUSCULAR HGB CONC 34.3 g/dL (33.0-37.0); MEAN PLATELET VOLUME 8.6 fL (7.2-11.7); MONO # 0.5 K/uL (0.0-0.8); MONO % 7.3 % (0.0-10.0); NEUT # 3.9 K/uL (1.8-7.0); NEUT % 58.3 % (50.0-75.0); RBC 4.33 Mil/uL (4.40-5.90); RED CELL DISTRIBUTION WIDTH 13.9 % (11.5-14.5); WHITE BLOOD COUNT 6.6 K/uL (4.8-10.8)
[2017-09-23 07:40] LABS: ALB/GLOB RATIO 1.6 (1.0-2.1); ALBUMIN 4.1 g/dL (3.5-5.0); ALT/SGPT 64 U/L (21-72); AST/SGOT 42 U/L (17-59); BLOOD UREA NITROGEN 8 mg/dL (9-20); CALCIUM 9.5 mg/dl (8.6-10.4); GFR AFRICAN-AMERICAN > 60; GFR NON-AFRICAN AMERICAN > 60
[2017-09-23] MEDS ORDERED: Lidocaine 2% MPF (5 ml) Inj ONE (07:57)
[2017-09-23] MEDS ORDERED: Midazolam 2 MG/2 ML VIAL ONE (07:57)
[2017-09-23] MEDS ORDERED: DiphenhydrAMINE 50 mg/ml Inj IVP STA (08:00)
[2017-09-23] MEDS ORDERED: DiphenhydrAMINE 50 mg/ml Inj ONE ×2 (08:35→08:36)
--- NOTE | 2017-09-23 09:15 | CP.PCM.PN ---
Subjective - Date & Time of Evaluation Date of Evaluation: 09/23/17 Time of Evaluation: 09:08 - Subjective Subjective: DOS: 09/23/2017 Transportation Operations Manager: Emile Green Indic: NSTEMI PROCEDURES: LEFT HEART CATH CORONARY ARTERIOGRAM LM nL LAD nL LCx nL RCA- rt dominant; nL LEFT VENTRICULOGRAM EF 50% No gradient across the aortic valve LVEDP 22mmHg No wall motion abnormality Objective - Vital Signs/Intake and Output Vital Signs (last 24 hours): Temp Pulse Resp BP Pulse Ox 98.3 F 98 H 20 132/89 97 09/23/17 08:35 09/23/17 08:35 09/23/17 08:35 09/23/17 08:35 09/23/17 08:35 Intake and Output: 09/23/17 09/23/17 06:59 18:59 Intake Total 1186.4 Balance 1186.4 - Medications Medications: Current Medications Albuterol/Ipratropium (Duoneb 3 Mg/0.5 Mg (3 Ml) Ud) 3 ml INH RQ6 [facility] Last Admin: 09/23/17 02:30 Dose: Not Given Aspirin (Aspirin Chewable) 81 mg PO DAILY [facility] Last Admin: 09/22/17 09:42 Dose: 81 mg Furosemide (Lasix) 40 mg IVP DAILY [facility] Last Admin: 09/22/17 09:42 Dose: 40 mg Guaifenesin (Mucinex La) 600 mg PO BID [facility] Last Admin: 09/22/17 18:22 Dose: 600 mg Piperacillin Sod/Tazobactam Sod (Zosyn 3.375 Gm Iv Premix) 3.375 gm in 50 mls @ 100 mls/hr IVPB Q6H [facility] PRN Reason: Protocol Last Admin: 09/23/17 05:30 Dose: 100 mls/hr Methadone HCl (Methadone) 30 mg PO DAILY@0900 [facility] Last Admin: 09/22/17 09:41 Dose: 30 mg Methadone HCl (Methadose) 80 mg PO DAILY@0900 [facility] Last Admin: 09/22/17 09:41 Dose: 80 mg Multivitamins (Hexavitamin) 1 tab PO DAILY [facility] Ondansetron HCl (Zofran Inj) 4 mg IVP Q8H PRN PRN Reason: Nausea/Vomiting Last Admin: 09/20/17 01:18 Dose: 4 mg Ranolazine (Ranexa) 500 mg PO BID [facility] Last Admin: 09/22/17 22:51 Dose: 500 mg Rosuvastatin Calcium (Crestor) 5 mg PO [facility] Last Admin: 09/22/17 22:50 Dose: 5 mg Sacubitril/Valsartan (Entresto 24 Mg-26 Mg) 1 tab PO BID [facility] Last Admin: 09/22/17 18:23 Dose: 1 tab - Labs Labs: 09/23/17 07:03 09/23/17 07:03 PT 12.9 SECONDS (9.7-12.2) H 09/19/17 08:29 INR 1.2 09/19/17 08:29 APTT 36 SECONDS (21-34) H D 09/23/17 07:03
[2017-09-23] MEDS ORDERED: Sodium Chloride 0.9% 500 ML IV SCH (09:30)
[2017-09-23] MEDS ORDERED: Iohexol 350mg/ml 100 ML ONE (09:35)
[2017-09-23] MEDS: Multiple Vitamins Tab PO SCH (10:53)
[2017-09-23] MEDS: Ranolazine 500 mg Extended Release Tablets PO SCH ×2 (10:53→18:04)
[2017-09-23] MEDS: Methadone 40 mg Tab PO SCH (10:53)
[2017-09-23] MEDS: Sacubitril/Valsartan 24-26mg Tab PO SCH ×2 (10:53→18:03)
--- NOTE | 2017-09-23 11:04 | CP.PCM.PN ---
Subjective - Date & Time of Evaluation Date of Evaluation: 09/23/17 Time of Evaluation: 09:00 - Subjective Subjective: left heart cath normal cont IV rx for pneumonia Objective - Vital Signs/Intake and Output Vital Signs (last 24 hours): Temp Pulse Resp BP Pulse Ox 98.3 F 68 20 125/79 97 09/23/17 08:35 09/23/17 10:51 09/23/17 08:35 09/23/17 10:54 09/23/17 08:35 Intake and Output: 09/23/17 09/23/17 06:59 18:59 Intake Total 1186.4 Balance 1186.4 - Medications Medications: Current Medications Albuterol/Ipratropium (Duoneb 3 Mg/0.5 Mg (3 Ml) Ud) 3 ml INH RQ6 [facility] Last Admin: 09/23/17 02:30 Dose: Not Given Aspirin (Aspirin Chewable) 81 mg PO DAILY [facility] Last Admin: 09/23/17 10:52 Dose: 81 mg Furosemide (Lasix) 40 mg IVP DAILY [facility] Last Admin: 09/23/17 10:54 Dose: 40 mg Guaifenesin (Mucinex La) 600 mg PO BID [facility] Last Admin: 09/22/17 18:22 Dose: 600 mg Piperacillin Sod/Tazobactam Sod (Zosyn 3.375 Gm Iv Premix) 3.375 gm in 50 mls @ 100 mls/hr IVPB Q6H [facility] PRN Reason: Protocol Last Admin: 09/23/17 05:30 Dose: 100 mls/hr Sodium Chloride (Sodium Chloride 0.9%) 500 mls @ 0 mls/hr IV .Q0M [facility] PRN Reason: Per Protocol Methadone HCl (Methadone) 30 mg PO DAILY@0900 [facility] Last Admin: 09/23/17 11:00 Dose: 30 mg Methadone HCl (Methadose) 80 mg PO DAILY@0900 [facility] Last Admin: 09/23/17 10:53 Dose: 80 mg Multivitamins (Hexavitamin) 1 tab PO DAILY [facility] Last Admin: 09/23/17 10:53 Dose: 1 tab Ondansetron HCl (Zofran Inj) 4 mg IVP Q8H PRN PRN Reason: Nausea/Vomiting Last Admin: 09/20/17 01:18 Dose: 4 mg Ranolazine (Ranexa) 500 mg PO BID [facility] Last Admin: 09/23/17 10:53 Dose: 500 mg Rosuvastatin Calcium (Crestor) 5 mg PO [facility] Last Admin: 09/22/17 22:50 Dose: 5 mg Sacubitril/Valsartan (Entresto 24 Mg-26 Mg) 1 tab PO BID [facility] Last Admin: 09/23/17 10:53 Dose: 1 tab - Labs Labs: 09/23/17 07:03 09/23/17 07:03 PT 12.9 SECONDS (9.7-12.2) H 09/19/17 08:29 INR 1.2 09/19/17 08:29 APTT 36 SECONDS (21-34) H D 09/23/17 07:03 - Constitutional Appears: Non-toxic, Chronically Ill - Head Exam Head Exam: NORMOCEPHALIC - Eye Exam Eye Exam: PERRL - ENT Exam ENT Exam: Normal External Ear Exam - Neck Exam Neck Exam: absent: Lymphadenopathy - Respiratory Exam Respiratory Exam: Decreased Breath Sounds - Cardiovascular Exam Cardiovascular Exam: REGULAR RHYTHM - GI/Abdominal Exam GI & Abdominal Exam: Distended, Soft Assessment and Plan (1) Hypoxia Status: Acute (2) Pneumonia Status: Acute (3) STEMI (ST elevation myocardial infarction) Status: Acute
[2017-09-23] MEDS: guaiFENesin 600 mg ER Tab PO SCH ×2 (11:05→18:04)
--- NOTE | 2017-09-23 11:30 | CP.PCM.PN ---
<Kat Galeano Y - Last Filed: 09/23/17 17:47> Subjective - Date & Time of Evaluation Date of Evaluation: 09/23/17 Time of Evaluation: 11:28 - Subjective Subjective: General Surgery Progress Note for Dr. Clayton Patient was seen and examined today at bedside in no acute distress. Patient had just returned from elective cardiac cath. Patient had no complaints. Denies f/c, n/v, c/d, CP, SOB. He is tolerating diet, passing stools and flatus. Objective - Vital Signs/Intake and Output Vital Signs (last 24 hours): Temp Pulse Resp BP Pulse Ox 98.3 F 68 20 125/79 97 09/23/17 08:35 09/23/17 10:51 09/23/17 08:35 09/23/17 10:54 09/23/17 08:35 Intake and Output: 09/23/17 09/23/17 06:59 18:59 Intake Total 1186.4 Balance 1186.4 - Medications Medications: Current Medications Albuterol/Ipratropium (Duoneb 3 Mg/0.5 Mg (3 Ml) Ud) 3 ml INH RQ6 [facility] Last Admin: 09/23/17 02:30 Dose: Not Given Aspirin (Aspirin Chewable) 81 mg PO DAILY [facility] Last Admin: 09/23/17 10:52 Dose: 81 mg Furosemide (Lasix) 40 mg IVP DAILY [facility] Last Admin: 09/23/17 10:54 Dose: 40 mg Guaifenesin (Mucinex La) 600 mg PO BID [facility] Last Admin: 09/23/17 11:05 Dose: 600 mg Piperacillin Sod/Tazobactam Sod (Zosyn 3.375 Gm Iv Premix) 3.375 gm in 50 mls @ 100 mls/hr IVPB Q6H [facility] PRN Reason: Protocol Last Admin: 09/23/17 11:18 Dose: 100 mls/hr Sodium Chloride (Sodium Chloride 0.9%) 500 mls @ 0 mls/hr IV .Q0M [facility] PRN Reason: Per Protocol Methadone HCl (Methadone) 30 mg PO DAILY@0900 [facility] Last Admin: 09/23/17 11:00 Dose: 30 mg Methadone HCl (Methadose) 80 mg PO DAILY@0900 [facility] Last Admin: 09/23/17 10:53 Dose: 80 mg Multivitamins (Hexavitamin) 1 tab PO DAILY [facility] Last Admin: 09/23/17 10:53 Dose: 1 tab Ondansetron HCl (Zofran Inj) 4 mg IVP Q8H PRN PRN Reason: Nausea/Vomiting Last Admin: 09/20/17 01:18 Dose: 4 mg Ranolazine (Ranexa) 500 mg PO BID [facility] Last Admin: 09/23/17 10:53 Dose: 500 mg Rosuvastatin Calcium (Crestor) 5 mg PO HS [facility] Last Admin: 09/22/17 22:50 Dose: 5 mg Sacubitril/Valsartan (Entresto 24 Mg-26 Mg) 1 tab PO BID [facility] Last Admin: 09/23/17 10:53 Dose: 1 tab - Labs Labs: 09/23/17 07:03 09/23/17 07:03 PT 12.9 SECONDS (9.7-12.2) H 09/19/17 08:29 INR 1.2 09/19/17 08:29 APTT 36 SECONDS (21-34) H D 09/23/17 07:03 - Constitutional Appears: Non-toxic, No Acute Distress - Head Exam Head Exam: ATRAUMATIC, NORMOCEPHALIC - Eye Exam Eye Exam: EOMI, Normal appearance - ENT Exam ENT Exam: Mucous Membranes Moist, Normal Exam - Respiratory Exam Respiratory Exam: Clear to Ausculation Bilateral, NORMAL BREATHING PATTERN - Cardiovascular Exam Cardiovascular Exam: REGULAR RHYTHM, +S1, +S2. absent: Murmur - GI/Abdominal Exam GI & Abdominal Exam: Soft, Normal Bowel Sounds. absent: Firm, Guarding, Tenderness, Rebound Additional comments: incisions c/d/i bandages removed, steri strips in place - Extremities Exam Extremities Exam: Normal Capillary Refill. absent: Calf Tenderness, Pedal Edema - Neurological Exam Neurological Exam: Alert, Awake, Oriented x3 - Psychiatric Exam Psychiatric exam: Normal Affect, Normal Mood - Skin Skin Exam: Dry, Intact, Normal Color, Warm Assessment and Plan - Assessment and Plan (Free Text) Plan: Assessment: 52yoM POD 5 s/p robotic cholecystectomy Plan: - dressings were intact, removed easily, wounds c/d/i without signs of infection - steri strips will come off on own - medical management per primary team - cardiac cath results noted - will continue to follow - further recs per Dr. Forrest Galeano PGY1 <Wei Clayton - Last Filed: 09/25/17 16:46> Objective - Vital Signs/Intake and Output Vital Signs (last 24 hours): Temp Pulse Resp BP Pulse Ox 97.5 F L 80 20 128/86 98 09/24/17 07:00 09/24/17 07:15 09/24/17 07:00 09/24/17 09:31 09/24/17 07:00 - Labs Labs: 09/24/17 07:02 09/24/17 07:02 PT 12.9 SECONDS (9.7-12.2) H 09/19/17 08:29 INR 1.2 09/19/17 08:29 APTT 36 SECONDS (21-34) H D 09/23/17 07:03 Attending/Attestation - Attestation I have personally seen and examined this patient.: Yes I have fully participated in the care of the patient.: Yes I have reviewed all pertinent clinical information, including history, physical exam and plan: Yes Notes (Text): Pt was seen and examined at bedside Agree with above note and assessment Pt had cardiac cath today Normal Coronary Pt can be DC home C.w home meds Plan d.w pt in detail
--- NOTE | 2017-09-23 16:00 | CP.PCM.PN ---
Subjective - Date & Time of Evaluation Date of Evaluation: 09/23/17 Time of Evaluation: 10:20 - Subjective Subjective: patient seen and examined Lying comfortably in no acute distress Status post cardiac catheter No cough and shortness of breath Afebrile No chest pain Switch to p.o. antibiotics Objective - Vital Signs/Intake and Output Vital Signs (last 24 hours): Temp Pulse Resp BP Pulse Ox 98.3 F 68 20 125/79 97 09/23/17 08:35 09/23/17 10:51 09/23/17 08:35 09/23/17 10:54 09/23/17 08:35 Intake and Output: 09/23/17 09/23/17 06:59 18:59 Intake Total 1186.4 Balance 1186.4 - Medications Medications: Current Medications Albuterol/Ipratropium (Duoneb 3 Mg/0.5 Mg (3 Ml) Ud) 3 ml INH RQ6 [facility] Last Admin: 09/23/17 13:51 Dose: 3 ml Aspirin (Aspirin Chewable) 81 mg PO DAILY [facility] Last Admin: 09/23/17 10:52 Dose: 81 mg Furosemide (Lasix) 40 mg IVP DAILY [facility] Last Admin: 09/23/17 10:54 Dose: 40 mg Guaifenesin (Mucinex La) 600 mg PO BID [facility] Last Admin: 09/23/17 11:05 Dose: 600 mg Piperacillin Sod/Tazobactam Sod (Zosyn 3.375 Gm Iv Premix) 3.375 gm in 50 mls @ 100 mls/hr IVPB Q6H [facility] PRN Reason: Protocol Last Admin: 09/23/17 11:18 Dose: 100 mls/hr Sodium Chloride (Sodium Chloride 0.9%) 500 mls @ 0 mls/hr IV .Q0M [facility] PRN Reason: Per Protocol Methadone HCl (Methadone) 30 mg PO DAILY@0900 [facility] Last Admin: 09/23/17 11:00 Dose: 30 mg Methadone HCl (Methadose) 80 mg PO DAILY@0900 [facility] Last Admin: 09/23/17 10:53 Dose: 80 mg Multivitamins (Hexavitamin) 1 tab PO DAILY [facility] Last Admin: 09/23/17 10:53 Dose: 1 tab Ondansetron HCl (Zofran Inj) 4 mg IVP Q8H PRN PRN Reason: Nausea/Vomiting Last Admin: 09/20/17 01:18 Dose: 4 mg Ranolazine (Ranexa) 500 mg PO BID [facility] Last Admin: 09/23/17 10:53 Dose: 500 mg Rosuvastatin Calcium (Crestor) 5 mg PO HS [facility] Last Admin: 09/22/17 22:50 Dose: 5 mg Sacubitril/Valsartan (Entresto 24 Mg-26 Mg) 1 tab PO BID [facility] Last Admin: 09/23/17 10:53 Dose: 1 tab - Labs Labs: 09/23/17 07:03 09/23/17 07:03 PT 12.9 SECONDS (9.7-12.2) H 09/19/17 08:29 INR 1.2 09/19/17 08:29 APTT 36 SECONDS (21-34) H D 09/23/17 07:03 Assessment and Plan (1) Pneumonia Status: Acute (2) Elevated troponin Status: Acute
[2017-09-24] MEDS: Piperacill/Tazo 3.375gm in Dex 3.375 GM/50 ML BAG IVPB SCH ×3 (00:01→12:19)
[2017-09-24] MEDS: Albuterol-Ipratrop 3 mg / 0.5 (3 ml) UD INH SCH ×2 (03:06→07:50)
--- NOTE | 2017-09-24 07:12 | CP.PCM.PN ---
<Kat Galeano Y - Last Filed: 09/24/17 18:42> Subjective - Date & Time of Evaluation Date of Evaluation: 09/24/17 Time of Evaluation: 07:09 - Subjective Subjective: General Surgery Progress Note for Dr. Clayton Patient was seen and examined today at bedside in no acute distress. Nurse reports no overnight events. Patient had no complaints. Denies f/c, n/v, c/d, CP , SOB. He is tolerating diet, passing stools and flatus. Objective - Vital Signs/Intake and Output Vital Signs (last 24 hours): Temp Pulse Resp BP Pulse Ox 97.7 F 60 20 104/67 97 09/23/17 23:45 09/24/17 00:49 09/23/17 23:45 09/23/17 23:45 09/23/17 23:45 Intake and Output: 09/24/17 09/24/17 06:59 18:59 Intake Total 300 Balance 300 - Medications Medications: Current Medications Albuterol/Ipratropium (Duoneb 3 Mg/0.5 Mg (3 Ml) Ud) 3 ml INH RQ6 [facility] Last Admin: 09/24/17 03:06 Dose: Not Given Aspirin (Aspirin Chewable) 81 mg PO DAILY [facility] Last Admin: 09/23/17 10:52 Dose: 81 mg Furosemide (Lasix) 40 mg IVP DAILY [facility] Last Admin: 09/23/17 10:54 Dose: 40 mg Guaifenesin (Mucinex La) 600 mg PO BID [facility] Last Admin: 09/23/17 18:04 Dose: 600 mg Piperacillin Sod/Tazobactam Sod (Zosyn 3.375 Gm Iv Premix) 3.375 gm in 50 mls @ 100 mls/hr IVPB Q6H [facility] PRN Reason: Protocol Last Admin: 09/24/17 05:46 Dose: 100 mls/hr Sodium Chloride (Sodium Chloride 0.9%) 500 mls @ 0 mls/hr IV .Q0M [facility] PRN Reason: Per Protocol Methadone HCl (Methadone) 30 mg PO DAILY@0900 [facility] Last Admin: 09/23/17 11:00 Dose: 30 mg Methadone HCl (Methadose) 80 mg PO DAILY@0900 [facility] Last Admin: 09/23/17 10:53 Dose: 80 mg Multivitamins (Hexavitamin) 1 tab PO DAILY [facility] Last Admin: 09/23/17 10:53 Dose: 1 tab Ondansetron HCl (Zofran Inj) 4 mg IVP Q8H PRN PRN Reason: Nausea/Vomiting Last Admin: 09/20/17 01:18 Dose: 4 mg Ranolazine (Ranexa) 500 mg PO BID [facility] Last Admin: 09/23/17 18:04 Dose: 500 mg Rosuvastatin Calcium (Crestor) 5 mg PO HS [facility] Last Admin: 09/23/17 21:57 Dose: 5 mg Sacubitril/Valsartan (Entresto 24 Mg-26 Mg) 1 tab PO BID [facility] Last Admin: 09/23/17 18:03 Dose: 1 tab - Labs Labs: 09/23/17 07:03 09/23/17 07:03 PT 12.9 SECONDS (9.7-12.2) H 09/19/17 08:29 INR 1.2 09/19/17 08:29 APTT 36 SECONDS (21-34) H D 09/23/17 07:03 - Constitutional Appears: Well, Non-toxic, No Acute Distress - Head Exam Head Exam: ATRAUMATIC, NORMOCEPHALIC - Eye Exam Eye Exam: EOMI, Normal appearance - ENT Exam ENT Exam: Mucous Membranes Moist, Normal Exam - Respiratory Exam Respiratory Exam: Clear to Ausculation Bilateral, NORMAL BREATHING PATTERN. absent: Rales, Rhonchi - Cardiovascular Exam Cardiovascular Exam: REGULAR RHYTHM, +S1, +S2. absent: Murmur - GI/Abdominal Exam GI & Abdominal Exam: Soft, Normal Bowel Sounds. absent: Tenderness Additional comments: incisions c/d/i steri strips in place small, resolving hematoma beneath middle incision - Extremities Exam Extremities Exam: Normal Capillary Refill, Normal Inspection. absent: Pedal Edema, Tenderness - Neurological Exam Neurological Exam: Alert, Awake, Oriented x3 - Psychiatric Exam Psychiatric exam: Normal Affect, Normal Mood - Skin Skin Exam: Dry, Intact, Normal Color, Warm Assessment and Plan - Assessment and Plan (Free Text) Plan: Assessment: 52yoM POD 6 s/p robotic cholecystectomy Plan: - dressings were intact, wounds c/d/i without signs of infection - steri strips will come off on own - medical management per primary team - signing off - please reconsult if warranted Kat Galeano PGY1 <Wei Clayton - Last Filed: 09/25/17 16:52> Objective - Vital Signs/Intake and Output Vital Signs (last 24 hours): Temp Pulse Resp BP Pulse Ox 97.5 F L 80 20 128/86 98 09/24/17 07:00 09/24/17 07:15 09/24/17 07:00 09/24/17 09:31 09/24/17 07:00 - Labs Labs: 09/24/17 07:02 09/24/17 07:02 PT 12.9 SECONDS (9.7-12.2) H 09/19/17 08:29 INR 1.2 09/19/17 08:29 APTT 36 SECONDS (21-34) H D 09/23/17 07:03 Attending/Attestation - Attestation I have personally seen and examined this patient.: Yes I have fully participated in the care of the patient.: Yes I have reviewed all pertinent clinical information, including history, physical exam and plan: Yes Notes (Text): Pt was seen and examined at bedside Agree with above note and assessment Pt can be DC home f.u as out pt c.w home meds Plan d.w pt in detail
[2017-09-24 07:24] LABS: BASO % 0.3 % (0.0-2.0); EOS % 0.1 % (0.0-4.0); HEMOGLOBIN 13.5 g/dL (12.0-18.0); LYMPH % 23.5 % (20.0-40.0); MEAN CELL VOLUME 89.3 fL (80.0-94.0); MEAN CORPUSCULAR HEMOGLOBIN 30.3 pg (27.0-31.0); MEAN PLATELET VOLUME 8.8 fL (7.2-11.7); MONO # 0.8 K/uL (0.0-0.8); MONO % 6.4 % (0.0-10.0); NEUT # 8.8 K/uL (1.8-7.0); NEUT % 69.7 % (50.0-75.0); RBC 4.45 Mil/uL (4.40-5.90); RED CELL DISTRIBUTION WIDTH 14.2 % (11.5-14.5)
[2017-09-24 07:30] LABS: WHITE BLOOD COUNT 12.6 K/uL (4.8-10.8)
[2017-09-24 07:38] VITALS: TEMP 97.5; O2SAT 98
[2017-09-24 07:47] LABS: ALB/GLOB RATIO 1.6 (1.0-2.1); ALBUMIN 4.4 g/dL (3.5-5.0); ALT/SGPT 54 U/L (21-72); AST/SGOT 30 U/L (17-59); BLOOD UREA NITROGEN 14 mg/dL (9-20); CALCIUM 9.5 mg/dl (8.6-10.4); GFR AFRICAN-AMERICAN > 60; GFR NON-AFRICAN AMERICAN > 60
[2017-09-24 08:50] VITALS: PULSE 80
[2017-09-24] MEDS: guaiFENesin 600 mg ER Tab PO SCH (09:30)
[2017-09-24] MEDS: Sacubitril/Valsartan 24-26mg Tab PO SCH (09:30)
[2017-09-24] MEDS: Ranolazine 500 mg Extended Release Tablets PO SCH (09:30)
[2017-09-24] MEDS: Multiple Vitamins Tab PO SCH (09:30)
[2017-09-24 09:31] VITALS: BP 128/86
[2017-09-24] MEDS: Methadone 40 mg Tab PO SCH (09:31)
--- NOTE | 2017-09-24 11:53 | CP.PCM.PN ---
Subjective - Date & Time of Evaluation Date of Evaluation: 09/24/17 Time of Evaluation: 09:00 - Subjective Subjective: improving on IV rx Objective - Vital Signs/Intake and Output Vital Signs (last 24 hours): Temp Pulse Resp BP Pulse Ox 97.5 F L 80 20 128/86 98 09/24/17 07:00 09/24/17 07:15 09/24/17 07:00 09/24/17 09:31 09/24/17 07:00 Intake and Output: 09/24/17 09/24/17 06:59 18:59 Intake Total 300 Balance 300 - Medications Medications: Current Medications Albuterol/Ipratropium (Duoneb 3 Mg/0.5 Mg (3 Ml) Ud) 3 ml INH RQ6 [facility] Last Admin: 09/24/17 07:50 Dose: 3 ml Aspirin (Aspirin Chewable) 81 mg PO DAILY [facility] Last Admin: 09/24/17 09:30 Dose: 81 mg Furosemide (Lasix) 40 mg IVP DAILY [facility] Last Admin: 09/24/17 09:31 Dose: 40 mg Guaifenesin (Mucinex La) 600 mg PO BID [facility] Last Admin: 09/24/17 09:30 Dose: 600 mg Piperacillin Sod/Tazobactam Sod (Zosyn 3.375 Gm Iv Premix) 3.375 gm in 50 mls @ 100 mls/hr IVPB Q6H [facility] PRN Reason: Protocol Last Admin: 09/24/17 05:46 Dose: 100 mls/hr Sodium Chloride (Sodium Chloride 0.9%) 500 mls @ 0 mls/hr IV .Q0M [facility] PRN Reason: Per Protocol Methadone HCl (Methadone) 30 mg PO DAILY@0900 [facility] Last Admin: 09/24/17 09:31 Dose: 30 mg Methadone HCl (Methadose) 80 mg PO DAILY@0900 [facility] Last Admin: 09/24/17 09:31 Dose: 80 mg Multivitamins (Hexavitamin) 1 tab PO DAILY [facility] Last Admin: 09/24/17 09:30 Dose: 1 tab Ondansetron HCl (Zofran Inj) 4 mg IVP Q8H PRN PRN Reason: Nausea/Vomiting Last Admin: 09/20/17 01:18 Dose: 4 mg Ranolazine (Ranexa) 500 mg PO BID [facility] Last Admin: 09/24/17 09:30 Dose: 500 mg Rosuvastatin Calcium (Crestor) 5 mg PO HS [facility] Last Admin: 09/23/17 21:57 Dose: 5 mg Sacubitril/Valsartan (Entresto 24 Mg-26 Mg) 1 tab PO BID [facility] Last Admin: 09/24/17 09:30 Dose: 1 tab - Labs Labs: 09/24/17 07:02 09/24/17 07:02 PT 12.9 SECONDS (9.7-12.2) H 09/19/17 08:29 INR 1.2 09/19/17 08:29 APTT 36 SECONDS (21-34) H D 09/23/17 07:03 - Constitutional Appears: Non-toxic, Chronically Ill - Head Exam Head Exam: NORMOCEPHALIC - Eye Exam Eye Exam: PERRL - ENT Exam ENT Exam: Mucous Membranes Dry - Neck Exam Neck Exam: absent: Lymphadenopathy - Respiratory Exam Respiratory Exam: Decreased Breath Sounds - Cardiovascular Exam Cardiovascular Exam: REGULAR RHYTHM - GI/Abdominal Exam GI & Abdominal Exam: Distended, Soft - Rectal Exam Rectal Exam: Deferred Assessment and Plan (1) Hypoxia Status: Acute (2) Pneumonia Status: Acute (3) STEMI (ST elevation myocardial infarction) Status: Acute
--- NOTE | 2017-09-24 12:25 | CP.PCM.DIS ---
Provider - Provider Date of Admission: 09/19/17 10:57 Attending physician: Emile Green MD Primary care physician: Dr Emile Green Consults: Dr Avtar Colunga Time Spent in preparation of Discharge (in minutes): 35 Hospital Course - Lab Results Lab Results: Micro Results 09/19/17 11:51 Blood Blood Culture - Final NO GROWTH AFTER 5 DAYS 09/19/17 11:51 Blood Gram Stain - Final TEST NOT PERFORMED 09/19/17 11:51 Blood Blood Culture - Final NO GROWTH AFTER 5 DAYS 09/19/17 11:51 Blood Gram Stain - Final TEST NOT PERFORMED 09/21/17 Unknown Nose MRSA Culture - Final MRSA NOT DETECTED 09/19/17 Unknown Naris MRSA Culture (Admit) - Final MRSA NOT DETECTED Most Recent Lab Values WBC 12.6 K/uL (4.8-10.8) H D 09/24/17 07:02 RBC 4.45 Mil/uL (4.40-5.90) 09/24/17 07:02 Hgb 13.5 g/dL (12.0-18.0) 09/24/17 07:02 Hct 39.7 % (35.0-51.0) 09/24/17 07:02 MCV 89.3 fL (80.0-94.0) 09/24/17 07:02 MCH 30.3 pg (27.0-31.0) 09/24/17 07:02 MCHC 34.0 g/dL (33.0-37.0) 09/24/17 07:02 RDW 14.2 % (11.5-14.5) 09/24/17 07:02 Plt Count 251 K/uL (130-400) 09/24/17 07:02 MPV 8.8 fL (7.2-11.7) 09/24/17 07:02 Neut % (Auto) 69.7 % (50.0-75.0) 09/24/17 07:02 Lymph % (Auto) 23.5 % (20.0-40.0) 09/24/17 07:02 [place] % (Auto) 6.4 % (0.0-10.0) 09/24/17 07:02 Eos % (Auto) 0.1 % (0.0-4.0) 09/24/17 07:02 Baso % (Auto) 0.3 % (0.0-2.0) 09/24/17 07:02 Neut # (Auto) 8.8 K/uL (1.8-7.0) H 09/24/17 07:02 Lymph # (Auto) 3.0 K/uL (1.0-4.3) 09/24/17 07:02 [place] # (Auto) 0.8 K/uL (0.0-0.8) 09/24/17 07:02 Eos # (Auto) 0.0 K/uL (0.0-0.7) 09/24/17 07:02 Baso # (Auto) 0.0 K/uL (0.0-0.2) 09/24/17 07:02 Neutrophils % (Manual) 83 % (50-75) H 09/19/17 08:29 Lymphocytes % (Manual) 7 % (20-40) L 09/19/17 08:29 Monocytes % (Manual) 9 % (0-10) 09/19/17 08:29 Eosinophils % (Manual) 1 % (0-4) 09/19/17 08:29 Platelet Estimate Normal (NORMAL) 09/19/17 08:29 PT 12.9 SECONDS (9.7-12.2) H 09/19/17 08:29 INR 1.2 09/19/17 08:29 APTT 36 SECONDS (21-34) H D 09/23/17 07:03 D-Dimer, Quantitative 316 ng/mlDDU (0-243) H 09/19/17 08:29 Puncture Site L/b 09/19/17 08:58 pCO2 36 mm/Hg (35-45) 09/19/17 08:58 pO2 46 mm/Hg (80-100) L 09/19/17 08:58 HCO3 23.4 mmol/L (21-28) 09/19/17 08:58 ABG pH 7.41 (7.35-7.45) 09/19/17 08:58 ABG Total CO2 23.9 mmol/L (22-28) 09/19/17 08:58 ABG O2 Saturation 88.4 % (95-98) L 09/19/17 08:58 ABG Base Excess -1.4 mmol/L (-2.0-3.0) 09/19/17 08:58 Alejandro Test Na 09/19/17 08:58 ABG Potassium 3.2 mmol/L (3.6-5.2) L 09/19/17 08:58 A-a O2 Difference 59.0 mm/Hg 09/19/17 08:58 Respiratory Index 1.3 09/19/17 08:58 Sodium 141.0 mmol/l (132-148) 09/19/17 08:58 Chloride 107.0 mmol/L (98-107) 09/19/17 08:58 Glucose 138 mg/dl (75-110) H 09/19/17 08:58 Lactate 1.4 mmol/L (0.7-2.1) 09/19/17 08:58 FiO2 21.0 % 09/19/17 08:58 Sodium 140 mmol/L (132-148) 09/24/17 07:02 Potassium 3.8 mmol/L (3.6-5.2) 09/24/17 07:02 Chloride 103 mmol/L (98-107) 09/24/17 07:02 Carbon Dioxide 25 mmol/L (22-30) 09/24/17 07:02 Anion Gap 15 (10-20) 09/24/17 07:02 BUN 14 mg/dL (9-20) 09/24/17 07:02 Creatinine 0.8 mg/dL (0.8-1.5) 09/24/17 07:02 Est GFR ( Amer) > 60 09/24/17 07:02 Est GFR (Non-Af Amer) > 60 09/24/17 07:02 POC Glucose (mg/dL) 119 mg/dL (65-110) H 09/19/17 21:06 Random Glucose 101 mg/dL (75-110) 09/24/17 07:02 Hemoglobin A1c 5.9 % (4.2-6.5) 09/20/17 06:24 Calcium 9.5 mg/dl (8.6-10.4) 09/24/17 07:02 Phosphorus 3.7 mg/dL (2.5-4.5) 09/24/17 07:02 Magnesium 2.1 mg/dL (1.6-2.3) 09/24/17 07:02 Total Bilirubin 0.6 mg/dL (0.2-1.3) 09/24/17 07:02 AST 30 U/L (17-59) 09/24/17 07:02 ALT 54 U/L (21-72) 09/24/17 07:02 Alkaline Phosphatase 91 U/L (38-126) 09/24/17 07:02 Total Creatine Kinase 197 U/L (55-170) H 09/19/17 22:43 CK-MB (Mass) 12.1 ng/mL (0.0-3.38) H 09/19/17 22:43 Troponin I 3.2100 ng/mL (0.00-0.120) H* 09/19/17 22:43 NT-Pro-B Natriuret Pep 7720 pg/mL (0-900) H 09/19/17 08:29 Total Protein 7.0 g/dL (6.3-8.3) 09/24/17 07:02 Albumin 4.4 g/dL (3.5-5.0) 09/24/17 07:02 Globulin 2.7 gm/dL (2.2-3.9) 09/24/17 07:02 Albumin/Globulin Ratio 1.6 (1.0-2.1) 09/24/17 07:02 Triglycerides 111 mg/dL (0-149) D 09/20/17 06:24 Cholesterol 168 mg/dL (0-199) 09/20/17 06:24 LDL Cholesterol Direct 88 mg/dL (0-129) 09/20/17 06:24 HDL Cholesterol 41 mg/dL (30-70) 09/20/17 06:24 Arterial Blood Potassium 3.2 mmol/L (3.6-5.2) L 09/19/17 08:58 Urine Color Yellow (YELLOW) 09/20/17 07:29 Urine Clarity Hazy (Clear) 09/20/17 07:29 Urine pH 5.0 (5.0-8.0) 09/20/17 07:29 Ur Specific Girdler 1.032 (1.003-1.030) H 09/20/17 07:29 Urine Protein Negative mg/dL (NEGATIVE) 09/20/17 07:29 Urine Glucose (UA) Normal mg/dL (Normal) 09/20/17 07:29 Urine Ketones Trace mg/dL (NEGATIVE) 09/20/17 07:29 Urine Blood Negative (NEGATIVE) 09/20/17 07:29 Urine Nitrate Negative (NEGATIVE) 09/20/17 07:29 Urine Bilirubin Negative (NEGATIVE) 09/20/17 07:29 Urine Urobilinogen Normal mg/dL (0.2-1.0) 09/20/17 07:29 Ur Leukocyte Esterase Neg Joleen/uL (Negative) 09/20/17 07:29 Urine WBC (Auto) 1 /hpf (0-5) 09/20/17 07:29 Urine RBC (Auto) 4 /hpf (0-3) H 09/20/17 07:29 Ur Squamous Epith Cells < 1 /hpf (0-5) 09/20/17 07:29 Urine Bacteria Rare (<OCC) 09/20/17 07:29 Vancomycin Trough < 5.0 ug/mL (5.0-10.0) L 09/24/17 07:02 Urine Opiates Screen Positive (NEGATIVE) H 09/19/17 08:29 Urine Methadone Screen Positive (NEGATIVE) H 09/19/17 08:29 Ur Barbiturates Screen Negative (NEGATIVE) 09/19/17 08:29 Ur Phencyclidine Scrn Negative (NEGATIVE) 09/19/17 08:29 Ur Amphetamines Screen Negative (NEGATIVE) 09/19/17 08:29 U Benzodiazepines Scrn Positive (NEGATIVE) 09/19/17 08:29 U Oth Cocaine Metabols Negative (NEGATIVE) 09/19/17 08:29 U Cannabinoids Screen Positive (NEGATIVE) H 09/19/17 08:29 Hep Bs Antigen Negative (NEGATIVE) 09/20/17 06:24 HIV 1&2 Antibody Screen Negative (NEGATIVE) 09/20/17 06:24 - Hospital Course Hospital Course: Pt was treated with abtx, bronchodilators, diuresis and beta-blockers with good response. ECHO revealed EF=30-35%. Cardiac cath revealed nL coronaries and nL LV systolic function. EF=50%. There was no gradient across the aortic valve. No MR. - Date & Time of H&P Date of H&P: 09/19/17 Time of H&P: 11:35 Discharge Exam - Head Exam Head Exam: NORMAL INSPECTION, NORMOCEPHALIC - Eye Exam Eye Exam: absent: Scleral icterus - ENT Exam ENT Exam: Mucous Membranes Moist - Neck Exam Neck exam: Full Rom - Respiratory Exam Respiratory Exam: Clear to PA & Lateral - Cardiovascular Exam Cardiovascular Exam: REGULAR RHYTHM - GI/Abdominal Exam GI & Abdominal Exam: Normal Bowel Sounds, Soft - Extremities Exam Extremities exam: calf tenderness, pedal edema - Neurological Exam Neurological exam: Alert, Oriented x3 Discharge Plan - Follow Up Plan Condition: SERIOUS Disposition: HOME/ ROUTINE
--- NOTE | 2017-09-24 12:35 | CP.PCM.PN ---
Subjective - Date & Time of Evaluation Date of Evaluation: 09/24/17 Time of Evaluation: 08:10 - Subjective Subjective: Pt feels good no coughing no fever Objective - Vital Signs/Intake and Output Vital Signs (last 24 hours): Temp Pulse Resp BP Pulse Ox 97.5 F L 80 20 128/86 98 09/24/17 07:00 09/24/17 07:15 09/24/17 07:00 09/24/17 09:31 09/24/17 07:00 Intake and Output: 09/24/17 09/24/17 06:59 18:59 Intake Total 300 Balance 300 - Medications Medications: Current Medications Albuterol/Ipratropium (Duoneb 3 Mg/0.5 Mg (3 Ml) Ud) 3 ml INH RQ6 [facility] Last Admin: 09/24/17 07:50 Dose: 3 ml Aspirin (Aspirin Chewable) 81 mg PO DAILY [facility] Last Admin: 09/24/17 09:30 Dose: 81 mg Furosemide (Lasix) 40 mg IVP DAILY [facility] Last Admin: 09/24/17 09:31 Dose: 40 mg Guaifenesin (Mucinex La) 600 mg PO BID [facility] Last Admin: 09/24/17 09:30 Dose: 600 mg Piperacillin Sod/Tazobactam Sod (Zosyn 3.375 Gm Iv Premix) 3.375 gm in 50 mls @ 100 mls/hr IVPB Q6H [facility] PRN Reason: Protocol Last Admin: 09/24/17 12:19 Dose: Not Given Sodium Chloride (Sodium Chloride 0.9%) 500 mls @ 0 mls/hr IV .Q0M [facility] PRN Reason: Per Protocol Methadone HCl (Methadone) 30 mg PO DAILY@0900 [facility] Last Admin: 09/24/17 09:31 Dose: 30 mg Methadone HCl (Methadose) 80 mg PO DAILY@0900 [facility] Last Admin: 09/24/17 09:31 Dose: 80 mg Multivitamins (Hexavitamin) 1 tab PO DAILY [facility] Last Admin: 09/24/17 09:30 Dose: 1 tab Ondansetron HCl (Zofran Inj) 4 mg IVP Q8H PRN PRN Reason: Nausea/Vomiting Last Admin: 09/20/17 01:18 Dose: 4 mg Ranolazine (Ranexa) 500 mg PO BID [facility] Last Admin: 09/24/17 09:30 Dose: 500 mg Rosuvastatin Calcium (Crestor) 5 mg PO HS [facility] Last Admin: 09/23/17 21:57 Dose: 5 mg Sacubitril/Valsartan (Entresto 24 Mg-26 Mg) 1 tab PO BID [facility] Last Admin: 09/24/17 09:30 Dose: 1 tab - Labs Labs: 09/24/17 07:02 09/24/17 07:02 PT 12.9 SECONDS (9.7-12.2) H 09/19/17 08:29 INR 1.2 09/19/17 08:29 APTT 36 SECONDS (21-34) H D 09/23/17 07:03 - Constitutional Appears: Non-toxic - Head Exam Head Exam: NORMAL INSPECTION - Eye Exam Eye Exam: absent: Scleral icterus - ENT Exam ENT Exam: Mucous Membranes Moist - Neck Exam Neck Exam: Full ROM - Respiratory Exam Respiratory Exam: Clear to Ausculation Bilateral - Cardiovascular Exam Cardiovascular Exam: REGULAR RHYTHM - GI/Abdominal Exam GI & Abdominal Exam: Soft - Extremities Exam Extremities Exam: absent: Pedal Edema - Neurological Exam Neurological Exam: Alert, Oriented x3 Assessment and Plan - Assessment and Plan (Free Text) Assessment: Pneumonia, resolving Hx of previous drug abuse, on methadone Plan: Ok for discharge from ID and pulmonary standpoint. Meds on DC: Levaquin 500mg po od x 5 days. Methadone as per methadone program
== END 2017-09-24 12:58 | disposition home or self-care (01) | DRG 280 ==
LOC: C.ER 07:34 → EEVIPCON 10:57 → C.9I 10:57 → C.9E 11:28 → C.9I 12:05 → C.6T 09-21 01:39
PROVIDERS: ADMIT Internal Medicine; ATTEND Internal Medicine
PROC: 4A023N7 Measurement of Cardiac Sampling and Pressure, Left Heart, Percutaneous Approach (ICD-10-PCS; principal; 2017-09-23)
PROC: B2151ZZ Fluoroscopy of Left Heart using Low Osmolar Contrast (ICD-10-PCS; 2017-09-23)
PROC: B2111ZZ Fluoroscopy of Multiple Coronary Arteries using Low Osmolar Contrast (ICD-10-PCS; 2017-09-23)
DX: I97.191 Other postprocedural cardiac functional disturbances following other surgery (principal); I21.4 Non-ST elevation (NSTEMI) myocardial infarction; J69.0 Pneumonitis due to inhalation of food and vomit; J95.89 Other postprocedural complications and disorders of respiratory system, not elsewhere classified; F11.20 Opioid dependence, uncomplicated; I42.0 Dilated cardiomyopathy; I11.0 Hypertensive heart disease with heart failure; R09.02 Hypoxemia; B18.2 Chronic viral hepatitis C; F12.90 Cannabis use, unspecified, uncomplicated; I50.9 Heart failure, unspecified; M19.90 Unspecified osteoarthritis, unspecified site; N40.0 Benign prostatic hyperplasia without lower urinary tract symptoms; N52.9 Male erectile dysfunction, unspecified; E78.5 Hyperlipidemia, unspecified; E78.00 Pure hypercholesterolemia, unspecified; Z90.49 Acquired absence of other specified parts of digestive tract; Z87.891 Personal history of nicotine dependence